=== PATIENT | male | born 1940 | race Caucasian/White ===

== ENCOUNTER 2017-08-03 11:50 | Inpatient (IN) ==
[2017-08-03] MEDS ORDERED: IPRATROPIUM/ALBUTEROL 3 ML AMPUL.NEB NEB ONE (12:05)
--- NOTE | 2017-08-03 12:07 | Emergency Department Note ---
SOB HPI - General Chief Complaint: Shortness of Breath/Dyspnea Stated Complaint: Short of breath, elevated HR. Time Seen by Provider: 08/03/17 12:01 Source: patient Mode of arrival: ambulatory Limitations: no limitations - History of Present Illness This patient has been fighting pneumonia for couple of weeks and has had 2 courses of antibiotics. He also has COPD and continues to be short of breath and coughing some. He is over at the allergy clinic and they found his heart rate to be 150. However in the emergency room it is only 108. - Related Data Home Medications Medication Instructions Recorded Confirmed Albuterol Sulfate [Proair Hfa] 8.5 gm IH PRN PRN 07/26/17 07/26/17 Dutasteride [Avodart] 0.5 mg PO HS 07/26/17 07/26/17 Fluticasone Furoate [Arnuity 1 puff IH DAILY 07/26/17 07/26/17 Ellipta] Fluticasone Furoate [Arnuity 1 puff IH DAILY 07/26/17 07/26/17 Ellipta] Metoprolol Succinate [Toprol Xl] 50 mg PO DAILY 07/26/17 07/26/17 Omeprazole [PriLOSEC] 20 mg PO DAILY 07/26/17 07/26/17 Simvastatin [Zocor] 40 mg PO HS 07/26/17 07/26/17 Terazosin [Hytrin] 5 mg PO DAILY 07/26/17 07/26/17 Tiotropium Br/Olodaterol HCl 2.5 gm IH DAILY 07/26/17 07/26/17 [Stiolto Respimat Inhal [place]] Previous Rx's Medication Instructions Recorded Cefuroxime [Ceftin] 500 mg PO Q12 #20 tab 07/26/17 predniSONE [Deltasone] 20 mg PO DAILY #6 tab 07/26/17 Allergies Allergy/AdvReac Type Severity Reaction Status Date / Time Penicillins Allergy Unknown Unknown Verified 08/03/17 11:51 Review of Systems All systems ED: reviewed and negative except as stated. Past Medical History - Past Medical History Medical history: Reports: asthma, COPD, other (No PUD). Denies: CVA, DM, hypertension, myocardial infarction, TIA - Social History smoking status: Former smoker Alcohol use: Reports: None Physical Exam Limitations: no limitations General appearance: alert Head: atraumatic Eye: Present: normal appearance ENT: normal exam Neck: Present: normal inspection Chest: Present: normal inspection Respiratory: Present: normal lung sounds bilaterally Cardiovascular: Present: regular rate, normal rhythm, normal heart sounds Abdominal: Present: soft. Absent: distention, tenderness Neurological: Present: alert Psychiatric: Present: normal affect, normal mood Skin: Present: warm, dry, intact Course Vital Signs Temperature 97.8 F 08/03/17 11:51 Pulse Rate 165 H 08/03/17 11:51 Respiratory Rate 22 08/03/17 11:51 Blood Pressure 131/78 08/03/17 11:51 Pulse Oximetry (%) 95 08/03/17 11:51 Temperature 97.8 F 08/03/17 11:51 Pulse Rate 81 08/03/17 13:08 Respiratory Rate 25 H 08/03/17 13:08 Blood Pressure 126/66 08/03/17 13:08 Pulse Oximetry (%) 94 08/03/17 13:08 Shortness of Breath/Dyspnea - [facility] Narrative Medical decision making narrative: This patient's chest x-ray is worsening. He appears to be failing outpatient treatment for his pneumonia and will be admitted. - Lab Data Lab results reviewed: Yes I reviewed the patient's lab results. Result diagrams: 08/03/17 12:25 08/03/17 12:25 Lab Results 08/03/17 08/03/17 08/03/17 Range/Units 12:25 12:25 12:25 WBC 10.4 (4.5-11.0) K/mcL RBC 4.53 (4.50-5.90) M/mcL Hgb 13.6 (13.5-16.5) g/dL Hct 40.6 L (41.0-55.0) % MCV 89.7 (80.0-100.0) fL MCH 30.0 (26.0-34.0) pg MCHC 33.5 (31.0-36.0) g/dL RDW 14.1 (11.5-14.5) % Plt Count 202 (140-440) K/mcL MPV 7.9 (7.4-10.4) fL Gran % 74.3 (38.0-78.0) % Lymph % (Auto) 12.5 L (15.5-49.0) % [place] % (Auto) 9.6 (1.0-12.0) % Eos % (Auto) 3.5 (0.0-7.0) % Baso % (Auto) 0.1 (0.0-2.0) % Gran # 7.7 (1.8-8.0) K/mcL Lymph # (Auto) 1.3 L (1.5-4.8) K/mcL [place] # (Auto) 1.0 H (0.1-0.9) K/mcL Eos # (Auto) 0.4 (0.0-0.7) K/mcL Baso # (Auto) 0 (0.0-0.3) K/mcL VBG Lactic Acid 1.7 (0.5-2.2) mmol/L Sodium 136 (133-145) mmol/L Potassium 4.7 (3.3-5.1) mmol/L Chloride 98 (96-108) mmol/L Carbon Dioxide 25 (22-30) mmol/L Anion Gap 13.0 (8-16) BUN 17 (8-23) mg/dl Creatinine 0.9 (0.7-1.2) mg/dl GFR Calculation 83 Glucose 96 (70-105) mg/dL Calcium 9.3 (8.6-10.4) mg/dl Total Bilirubin 0.5 (0.0-1.0) mg/dL AST 13 (0-37) U/l ALT 25 (0-40) U/l Alkaline Phosphatase 68 (39-117) U/L Troponin T (0-0.03) ng/ml Total Protein 7.0 (5.9-8.4) gm/dL Albumin 3.4 (3.2-5.2) gm/dL Globulin 3.6 (2.2-3.7) gm/dL Albumin/Globulin Ratio 0.9 L (1.0-2.3) 08/03/17 Range/Units 12:25 WBC (4.5-11.0) K/mcL RBC (4.50-5.90) M/mcL Hgb (13.5-16.5) g/dL Hct (41.0-55.0) % MCV (80.0-100.0) fL MCH (26.0-34.0) pg MCHC (31.0-36.0) g/dL RDW (11.5-14.5) % Plt Count (140-440) K/mcL MPV (7.4-10.4) fL Gran % (38.0-78.0) % Lymph % (Auto) (15.5-49.0) % [place] % (Auto) (1.0-12.0) % Eos % (Auto) (0.0-7.0) % Baso % (Auto) (0.0-2.0) % Gran # (1.8-8.0) K/mcL Lymph # (Auto) (1.5-4.8) K/mcL [place] # (Auto) (0.1-0.9) K/mcL Eos # (Auto) (0.0-0.7) K/mcL Baso # (Auto) (0.0-0.3) K/mcL VBG Lactic Acid (0.5-2.2) mmol/L Sodium (133-145) mmol/L Potassium (3.3-5.1) mmol/L Chloride (96-108) mmol/L Carbon Dioxide (22-30) mmol/L Anion Gap (8-16) BUN (8-23) mg/dl Creatinine (0.7-1.2) mg/dl GFR Calculation Glucose (70-105) mg/dL Calcium (8.6-10.4) mg/dl Total Bilirubin (0.0-1.0) mg/dL AST (0-37) U/l ALT (0-40) U/l Alkaline Phosphatase (39-117) U/L Troponin T < 0.01 (0-0.03) ng/ml Total Protein (5.9-8.4) gm/dL Albumin (3.2-5.2) gm/dL Globulin (2.2-3.7) gm/dL Albumin/Globulin Ratio (1.0-2.3) - Radiology Data Radiology results reviewed: Yes I reviewed the patient's radiology results. Disposition Pt seen by ENGINE LATHE OPERATOR/PA only: No Clinical Impression: Community acquired pneumonia Disposition: Xfer As Inpt ([facility]) Condition: Good Referrals: Des Waterman DO [Primary Care Provider] - Time of Disposition: 14:06
--- NOTE | 2017-08-03 13:00 | XRay Report ---
CLINICAL INFORMATION: Shortness of breath COMPARISON: 07/26/2017 FINDINGS: Heart size, mediastinum and pulmonary vessels are normal. Large alveolar infiltrate in the anterior segment of the left upper lobe and lingula has worsened. Left pleural effusion has increased and now moderate in size. Underlying COPD noted IMPRESSION: Large infiltrate in the anterior segment left upper lobe and lingula - worsening Moderate left pleural effusion also worsening Underlying COPD Interpreted and Authenticated by: Blue Chavez 08/03/17
[2017-08-03 13:04] LABS: Basophils # (Auto) 0 K/mcL (0.0-0.3); Basophils % (Auto) 0.1 % (0.0-2.0); Eosinophils # (Auto) 0.4 K/mcL (0.0-0.7); Eosinophils % (Auto) 3.5 % (0.0-7.0); Granulocytes % (Auto) 74.3 % (38.0-78.0); Lymphocytes # (Auto) 1.3 K/mcL (1.5-4.8); Lymphocytes % (Auto) 12.5 % (15.5-49.0); Mean Cell Volume 89.7 fL (80.0-100.0); Mean Corpuscular HGB Conc 33.5 g/dL (31.0-36.0); Monocytes % (Auto) 9.6 % (1.0-12.0); Platelet Count 202 K/mcL (140-440); RBC 4.53 M/mcL (4.50-5.90); Red Cell Distribution Width 14.1 % (11.5-14.5)
[2017-08-03 13:30] LABS: ALT/SGPT 25 U/l (0-40); Albumin 3.4 gm/dL (3.2-5.2); Albumin/Globulin Ratio 0.9 (1.0-2.3); Alkaline Phosphatase 68 U/L (39-117); Blood Urea Nitrogen 17 mg/dl (8-23)
[2017-08-03] MEDS ORDERED: LEVOFLOXACIN 750 MG/150 ML BAG IV ONE (13:45)
--- NOTE | 2017-08-03 15:56 | Internal Med History&Physical ---
Medical - H&P: HPI Patient information: Note initiated : 08/03/17 at 3:54 pm Service Date, if different from initiated Date: [] Patient: Sukumar Burt 76 y/o M admitted on for SOB, Elevated HR. Chief Complaint: progressive cough, dyspnea, chest pain, failed outpatient antibiotics for pneumonia History of present illness: Patient is a 76-year-old male with a history of advanced COPD, hypercholesterolemia, BPH, recent tachycardia who presents to the ED with progressive pulmonary symptoms. Approximately 10 days ago, the patient started developing pulmonary symptoms coughing with sputum production, occasionally bloody. He presented to the ED here on her poor A6, was diagnosed with lingular pneumonia, treated with Ceftin and a 5 day course of prednisone. Since that time he slept better and felt good for the first 2 days, then has progressively declined. He continues to have cough. He continues to have significant pleuritic chest pain, worse with inspiration and with cough. It's on the left side of the chest over the lingular region. It's moderate to severe in intensity. It hurts for him to lay on that side. He follows up in Dr. Hayes's office today, where Ceftin was stopped and Levaquin was prescribed as well as another taper prednisone. He was also tachycardic, was recommended he present to the emergency department. He presents to the ED, where initially his pulse is 124 with bigeminy on EKG. He is continuing to cough, producing yellowish sputum which is occasionally bloody , though sometimes it's almost all blood. He's felt chilled, though he feels chilly often. He's had no fever. He's had no night sweats. No history of TB exposure. No recent travel. He's had no weight loss. Sputum is yellowish tinged. Repeat radiograph in the ED shows progressive left lingular infiltrate and consolidation. He is being admitted for further treatment of pneumonia, failed outpatient therapy. Other than above, patient denies any headache, vision changes, sore throat, orthopnea, lower extremity edema, nausea, vomiting, diarrhea, abdominal pain, dysuria, focal neurologic symptoms. All systems: reviewed and no additional remarkable complaints except as stated Medical - H&P: PMH Medical history: COPD Hypercholesterolemia BPH Gastroesophageal reflux Urticaria Tachycardia, recently started on metoprolol History of spontaneous pneumothoraces 5, most recently in the 1980s. Surgical history: History of double hernia repair History of right sided chest tube in the remote past Pertinent family history: Patient's 3 sisters had breast cancer and have . A paternal grandmother of pneumonia in her late 30s in the year 1929. 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 He lives with his . He stopped smoking for 5 years ago, smoked 1 to1-1/2 packs per day prior to that. He does not drink alcohol. Medical - H&P: Meds Home Medications Medication Instructions Recorded Confirmed Type Albuterol Sulfate [Proair Hfa] 8.5 gm IH PRN PRN 07/26/17 07/26/17 History Cefuroxime [Ceftin] 500 mg PO Q12 #20 tab 07/26/17 Rx Dutasteride [Avodart] 0.5 mg PO HS 07/26/17 07/26/17 History Fluticasone Furoate [Arnuity 1 puff IH DAILY 07/26/17 07/26/17 History Ellipta] Fluticasone Furoate [Arnuity 1 puff IH DAILY 07/26/17 07/26/17 History Ellipta] Metoprolol Succinate [Toprol Xl] 50 mg PO DAILY 07/26/17 07/26/17 History Omeprazole [PriLOSEC] 20 mg PO DAILY 07/26/17 07/26/17 History Simvastatin [Zocor] 40 mg PO HS 07/26/17 07/26/17 History Terazosin [Hytrin] 5 mg PO DAILY 07/26/17 07/26/17 History Tiotropium Br/Olodaterol HCl 2.5 gm IH DAILY 07/26/17 07/26/17 History [Stiolto Respimat Inhal [place]] predniSONE [Deltasone] 20 mg PO DAILY #6 tab 07/26/17 Rx Allergies Allergy/AdvReac Type Severity Reaction Status Date / Time Penicillins Allergy Unknown Unknown Verified 08/03/17 11:51 Medical - H&P: Exam - Constitutional Vitals: Temp Pulse Resp BP Pulse Ox 97.8 F 81 25 H 126/66 94 08/03/17 11:51 08/03/17 13:08 08/03/17 13:08 08/03/17 13:08 08/03/17 13:08 Exam: General: Alert, in no acute distress HEENT: Normocephalic. Pupils are equally round and reactive to light. Sclera are anicteric. No conjunctival injection. Oropharynx is with moist mucous membranes, no lip or gum lesions. Tongue is midline. Neck: Supple, no meningismus. No thyromegaly. Chest: Diminished breath sounds at the left base, augmented vesicular breath sounds left mid posterior, few rales left lateral and anterior lung gomez. No wheezing, no rhonchi, inspiratory and expiratory phases approximately equal, aeration is moderately good. Respirations are mildly labored. Cardiovascular: Regular rate and rhythm without murmur gallop or rub. Carotid pulses are 2+ without bruit. There is no lower extremity edema. JVP is normal. Abdomen: Soft, nontender without guarding or rebound. Active bowel sounds. No hepatosplenomegaly. Lymphatic: No supraclavicular lymphadenopathy, no cervical lymphadenopathy. Skin: Warm, dry. No rash. Skin turgor is decreased Musculoskeletal: No joint erythema or tenderness. Normal range of motion in the upper and lower extremities. Strength 5/5 in upper and lower extremities. Digits without cyanosis or clubbing. Neuro: Alert, oriented X3. Cranial nerves II through XII grossly intact. Sensation intact to light touch. Psychiatric: Affect and orientation are normal. Good insight. Medical - H&P: Reslt - Labs CBC & Chem 7: 08/03/17 12:25 08/03/17 12:25 Labs: Short CBC 08/03/17 Range/Units 12:25 WBC 10.4 (4.5-11.0) K/mcL Hgb 13.6 (13.5-16.5) g/dL Hct 40.6 L (41.0-55.0) % Plt Count 202 (140-440) K/mcL BMP 08/03/17 12:25 Sodium 136 Potassium 4.7 Chloride 98 Carbon Dioxide 25 BUN 17 Creatinine 0.9 Glucose 96 Calcium 9.3 Cardiac Enzymes 08/03/17 Range/Units 12:25 Troponin T < 0.01 (0-0.03) ng/ml Liver Function 08/03/17 Range/Units 12:25 Total Bilirubin 0.5 (0.0-1.0) mg/dL AST 13 (0-37) U/l ALT 25 (0-40) U/l Alkaline Phosphatase 68 (39-117) U/L Albumin 3.4 (3.2-5.2) gm/dL - EKG Data -: EKG Reviewed by Myself (SR with gissel, rate 124) - Imaging and Cardiology Chest x-ray Status: image reviewed by me Additional comments: FINDINGS: Heart size, mediastinum and pulmonary vessels are normal. Large alveolar infiltrate in the anterior segment of the left upper lobe and lingula has worsened. Left pleural effusion has increased and now moderate in size. Underlying COPD noted IMPRESSION: -Large infiltrate in the anterior segment left upper lobe and lingula - worsening -Moderate left pleural effusion also worsening -Underlying COPD Medical - H&P: A/P (1) Left upper lobe pneumonia Current visit: Yes Status: Acute (2) COPD (chronic obstructive pulmonary disease) Current visit: Yes Status: Chronic - Narrative A/P Narrative: 76-year-old male with advanced COPD presents with ongoing pulmonary symptoms, cough, occasional hemoptysis, pleuritic chest pain and worsening infiltrate on chest x-ray. Pneumonia. Failed outpatient therapy. Worsening infiltrate and worsening of effusion. Oxygenating adequately on room air currently. No evidence of sepsis. Concern for parapneumonic versus empyema as source of effusion. Also concern for possible postobstructive pneumonia with failure to respond to Ceftin. Patient does have a history of smoking. Last CT scan was 4 or 5 years ago by his estimation. Pneumonia severity index 86, though given progressive infiltrate and effusion, the patient will require inpatient hospitalization and treatment. Plan: 1. Inpatient hospitalization, despite greater than 2 midnights 2. Levofloxacin 750 mg IV daily 3. Incentive spirometry 4. Analgesia for pleuritic pain 5. Check sputum culture, blood cultures obtained, follow-up 6. No active COPD exacerbation, continue with his bronchodilators and inhaled steroids 7. Check CT of chest to evaluate for obstructive lesion, evaluate extent of effusion and for evidence of loculation 8. Check strep pneumo urine antigen COPD. No current exacerbation. Plan: Continue home regimen, we'll not provide pulse of extra steroids at this time. Tachycardia. Patient with bigeminy on EKG. Has had intermittent tachycardia for the last several weeks. This may be related to his underlying pneumonia and pleural process. Metoprolol have been started due to tachycardia. Plan: Telemetry monitoring. Gastroesophageal reflux disease. Stable. Plan: Continue home meds Urticaria. Patient takes evening antihistamine to prevent hives. Plan: Continue BPH with lower urinary tract symptoms. Stable on current regimen. Plan: Continue home regimen. Prophylaxis: Lovenox, he is on a PPI as well. CODE STATUS: The patient would want cardiopulmonary resuscitation. He would not want to be intubated. He would accept BiPAP if needed.
[2017-08-03] MEDS ORDERED: ACETAMINOPHEN 325 MG TABLET PO PRN (16:51)
[2017-08-03] MEDS ORDERED: IPRATROPIUM/ALBUTEROL 3 ML AMPUL.NEB NEB PRN (16:51)
[2017-08-03] MEDS ORDERED: HYDROcodone/APAP 5/325MG TABLET PO PRN (16:51)
[2017-08-03] MEDS ORDERED: ONDANSETRON 4 MG/2 ML VIAL IV PRN (16:51)
[2017-08-03] MEDS: 0.9 % SODIUM CHLORIDE 1,000 ML IV SCH (16:59)
[2017-08-03 17:25] LABS: C-Reactive Protein 7.3 mg/dl (0.0-0.8)
[2017-08-03] MEDS ORDERED: IOPAMIDOL 100 ML BOTTLE IV ONE (17:29)
--- NOTE | 2017-08-03 18:03 | Cat Scan Report ---
CLINICAL INFORMATION: Left upper lobe pneumonia and hemoptysis COMPARISON: None. TECHNIQUE: 80 cc of Isovue-300 were injected intravenously, and 25 seconds later, 0.625 mm helical slices were obtained from the lung apices through the bases. Following reconstruction, 2.5 mm sagittal, coronal and axial reformations were processed and reviewed at lung, mediastinal and bone windows. 7 mm axial MIPS were also obtained to optimize pulmonary nodule detection. The exam was performed using radiation dose optimization techniques including, but not limited to, automated exposure control, adjustment of the mA and/or kV according to patient size and use of iterative reconstruction technique. FINDINGS: There is a 5 x 2 cm low-attenuation mass with irregular borders in the left hilum which encases and narrows the left upper lobe and lingular bronchi. It is suspicious for primary lung carcinoma. No definite adenopathy within the mediastinum or remaining hilar structures. The heart is normal in size configuration. There is a 17 mm thrombus within the left atrial appendage. The pulmonary arteries are normal in contour and caliber without definite emboli. The thoracic aorta is normal in contour and caliber. Pulmonary parenchymal windows show moderate centrilobular emphysema changes featuring elevated lung volumes chronic bronchitis and multiple bullae predominantly upper lobes. There is a large alveolar infiltrate throughout the anterior segment of the left upper lobe and the lingula. A small interstitial infiltrate is seen in the posterior left lower lobe. Moderate left pleural effusion is appreciated. There is scattered scarring in the right lung with pleural parenchymal fibrosis in both apical regions. Bones soft tissues the chest wall are unremarkable. Images should the superior abdomen show no abnormality. IMPRESSION: 1. 5 cm irregular left hilar mass encasing and narrowing the left upper lobe and lingular bronchi and pulmonary arteries. It is suspicious for primary lung carcinoma. No definite evidence of metastatic adenopathy or distant metastases. If tissue diagnosis is desired, suggest bronchoscopy 2. Large alveolar infiltrate in the lingula and anterior segment left upper lobe. Small infiltrate posterior left lower lobe. Moderate left pleural effusion 3. 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 This would be at risk for systemic embolization 4. Moderate centrilobular emphysema changes Interpreted and Authenticated by: Blue Chavez 08/03/17
[2017-08-03] MEDS ORDERED: traZODone HCL 50 MG TABLET PO PRN (18:59)
[2017-08-03] MEDS ORDERED: HYDROcodone/APAP 10/325MG TABLET PO ONE (19:29)
[2017-08-03] MEDS: OMEPRAZOLE 20 MG CAPSULE PO SCH (21:24)
[2017-08-03] MEDS: SIMVASTATIN 40 MG TABLET PO SCH (21:24)
[2017-08-03] MEDS: METOPROLOL SUCCINATE 25 MG TAB.XL.24H PO SCH (21:24)
[2017-08-03] MEDS: TERAZOSIN 5 MG CAPSULE PO SCH (21:24)
[2017-08-03] MEDS: DUTASTERIDE 0.5 MG CAPSULE PO SCH (21:37)
[2017-08-03] MEDS: HYDROcodone/APAP 10/325MG TABLET PO PRN (23:30)
[2017-08-04] MEDS: HYDROcodone/APAP 10/325MG TABLET PO PRN (03:44)
[2017-08-04 05:31] LABS: Basophils # (Auto) 0 K/mcL (0.0-0.3); Basophils % (Auto) 0.1 % (0.0-2.0); Eosinophils # (Auto) 0.4 K/mcL (0.0-0.7); Granulocytes % (Auto) 68.2 % (38.0-78.0); Lymphocytes # (Auto) 1.6 K/mcL (1.5-4.8); Lymphocytes % (Auto) 16.9 % (15.5-49.0); Mean Cell Volume 89.5 fL (80.0-100.0); Mean Corpuscular HGB Conc 33.9 g/dL (31.0-36.0); Mean Corpuscular Hemoglobin 30.4 pg (26.0-34.0); Monocytes % (Auto) 10.8 % (1.0-12.0); Platelet Count 176 K/mcL (140-440); RBC 3.94 M/mcL (4.50-5.90); Red Cell Distribution Width 13.9 % (11.5-14.5)
[2017-08-04] MEDS: 0.9 % SODIUM CHLORIDE 1,000 ML IV SCH ×2 (06:42→21:46)
[2017-08-04] MEDS ORDERED: OLODATEROL HCL INH SCH (09:00)
[2017-08-04] MEDS ORDERED: Fluticasone Furoate [Arnuity Ellipta] 1 PUFF INH SCH (09:00)
[2017-08-04] MEDS ORDERED: ENOXAPARIN 40 MG/0.4 ML SYRINGE SQ SCH (09:00)
[2017-08-04] MEDS ORDERED: TIOTROPIUM BR INH SCH (09:00)
[2017-08-04] MEDS ORDERED: FLUTICASONE FUROATE IH SCH ×2 (09:00→21:00)
[2017-08-04] MEDS: LEVOFLOXACIN 750 MG/150 ML BAG IV SCH (09:21)
--- NOTE | 2017-08-04 10:26 | Consultation ---
DATE OF CONSULTATION: 08/04/2017 REQUESTING PHYSICIAN: Maria Guadalupe Whitlock MD HISTORY OF PRESENT ILLNESS: The patient is a 76-year-old male who indicates approximately 10 to 14 days of deteriorating respiratory status. He was seen in the Emergency Room initially and given a course of Ceftin for what was considered a lingular pneumonia. He subsequently did not consider himself significantly improved and visited with Dr. Hayes. He was switched from Ceftin to Levaquin. His symptoms continued to be difficult and he had developed some scant blood in his cough material. He represented to the Emergency Room where he was thought to have a poorly responding pneumonia and admitted for further care. On admission, the hospitalist obtained a CT scan of the chest. This demonstrated a significant mass lesion occluding part of the left upper lobe and lingular bronchi. Consultation was placed to Pulmonary in that regard. The patient indicates that he has smoked all of his life, having quit approximately 4 years previously. He denies claude or industrial occupations or exposures. He denies known exposure to tuberculosis and thinks he had negative skin test in childhood. No unusual animals or other exposures in the home, only a cat. He does consider himself to be an allergic person and indicates he gets hives when he travels and sleeps in foreign bed sheets. He denies fevers or chills. Apart from his current difficulties, he reports a history of gastroesophageal reflux disease as well as spontaneous pneumothoraces in the 80s. These required closed tube thoracostomy on one occasion and a prolonged air drainage at that time. 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 REVIEW OF SYSTEMS: Negative except as recorded above on detailed questioning. No history of heart disease, dependent edema. He is having some pleuritic chest pain on the left in the area of his pneumonitis at this time but no other reported abnormalities. PHYSICAL EXAMINATION: GENERAL: The patient is a pleasant 76-year-old male who winces occasionally with a deep breath but in no other acute distress. HEAD: Atraumatic and normocephalic. EYES: PERRL, EOMI. Sclerae and conjunctivae clear. NECK: Supple, possible soft right carotid bruit. No lymphadenopathy. LUNGS: Decreased breath sounds with rhonchi and sipping wheeze in the left hemithorax. HEART: Regular S1, S2. No gallop, rub, jugular venous distention or edema. ABDOMEN: Soft. Bowel sounds present. Liver and spleen are not palpable. BONES, JOINTS AND EXTREMITIES: Intact. NEUROLOGIC: Nonfocal. IMAGING STUDIES: Review of the CT scan of the chest does show an abnormality in the hilum of the left lung with airway impingement, as well as an infiltrate in the pulmonary parenchyma. IMPRESSION: A 76-year-old male with a probable lung carcinoma. At this time, continuing antibiotic therapy for his pneumonia is appropriate while he would gain some strength and decrease some inflammation. Also noted was the atrial thrombus. I do recommend anticoagulation with adjusted dose heparin so that a window could be looked for early next week to discontinue anticoagulation briefly to allow bronchoscopy to try and elucidate cause of the radiographic change. I will discuss and follow along. Thank you for the opportunity to participate in the care of this pleasant gentleman. KJP:los Job ID: [id number] Doc ID: [id number] Gerald Wade MD
--- NOTE | 2017-08-04 10:53 | Internal Med Progress Note ---
Medical - PN: Subj Patient information: Note initiated : 08/04/17 at 10:50 am Service Date, if different from initiated Date: [] Patient: Sukumar Burt 76 y/o M admitted on 08/03/17 for pneumonia. Chief Complaint: f/u PNA, lung mass Interval history: Aug 03 Patient is a 76-year-old male with a history of advanced COPD, hypercholesterolemia, BPH, recent tachycardia who presents to the ED with progressive pulmonary symptoms. Approximately 10 days ago, the patient started developing pulmonary symptoms coughing with sputum production, occasionally bloody. He presented to the ED here on her poor A6, was diagnosed with lingular pneumonia, treated with Ceftin and a 5 day course of prednisone. Since that time he slept better and felt good for the first 2 days, then has progressively declined. He continues to have cough. He continues to have significant pleuritic chest pain, worse with inspiration and with cough. It's on the left side of the chest over the lingular region. It's moderate to severe in intensity. It hurts for him to lay on that side. He follows up in Dr. Hayes's office today, where Ceftin was stopped and Levaquin was prescribed as well as another taper prednisone. He was also tachycardic, was recommended he present to the emergency department. He presents to the ED, where initially his pulse is 124 with bigeminy on EKG. He is continuing to cough, producing yellowish sputum which is occasionally bloody , though sometimes it's almost all blood. He's felt chilled, though he feels chilly often. He's had no fever. He's had no night sweats. No history of TB exposure. No recent travel. He's had no weight loss. Sputum is yellowish tinged. Repeat radiograph in the ED shows progressive left lingular infiltrate and consolidation. He is being admitted for further treatment of pneumonia, failed outpatient therapy. Aug 04 Feeling a bit stronger this morning. Has been seen by Dr. Wade. CT yesterday shows left hilar mass with partial bronchial obstruction, likely explaining his progressive pneumonia. 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 Plan is to treat with further antibiotics and strengthening prior to attempting bronchoscopy, likely Tuesday morning. Still with some cough, not much hemoptysis. Chest pain seems to be slowly improving. - Constitutional Vitals: Vital Signs Temp Pulse Resp BP Pulse Ox 97.9 F 61 16 112/66 95 08/04/17 07:17 08/04/17 07:17 08/04/17 07:17 08/04/17 07:17 08/04/17 07:17 Period Temp Pulse Resp BP Sys/Giang Pulse Ox Last 24 Hr 97.7 F-98.8 F 28-165 15-27 106-137/54-86 91-98 Intake and Output 08/03/17 08/04/17 08/04/17 21:59 05:59 13:59 Intake Total 510 / 510 300 / 300 1550 / 1550 Output Total 300 / 300 400 / 400 150 / 150 Balance 210 / 210 -100 / -100 1400 / 1400 Weight 160 lb Intake & Output: Intake & Output 08/03/17 08/04/17 08/04/17 21:59 05:59 13:59 Intake Total 510 / 510 300 / 300 1550 / 1550 Output Total 300 / 300 400 / 400 150 / 150 Balance 210 / 210 -100 / -100 1400 / 1400 Weight 160 lb Intake: IV 150 / 150 1000 / 1000 Sodium Chloride 0.9% 1,000 ml @ 1000 / 1000 75 mls/hr IV .[id number] [facility] Rx#: [id number] Oral 360 / 360 300 / 300 550 / 550 Output: Void Amount 300 / 300 400 / 400 150 / 150 Other: Meal Dinner Percent of Meal Consumed 75% Feeding Ability Independent Stool Color Brown Stool Consistency Soft # Voids 1 1 Exam: General: Significant bed in no acute distress Chest: Coarse vesicular breath sounds left mid and upper lung, otherwise diminished throughout, no wheezes Cardiovascular: Regular, no edema Abdomen: Soft, nontender Neuro: Alert, oriented 3, moves all extremities, nonfocal Medical - PN: Obj Da - Labs CBC & Chem 7: 08/04/17 04:26 08/03/17 12:25 Labs: Abnormal Lab Results 08/04/17 08/03/17 08/03/17 04:26 12:25 12:25 RBC 3.94 L Hgb 11.9 L Hct 35.2 L Lymph % (Auto) Lymph # (Auto) [place] # (Auto) 1.0 H ESR 28 H C-Reactive Protein 7.3 H Albumin/Globulin Ratio 08/03/17 08/03/17 12:25 12:25 RBC Hgb Hct 40.6 L Lymph % (Auto) 12.5 L Lymph # (Auto) 1.3 L [place] # (Auto) 1.0 H ESR C-Reactive Protein Albumin/Globulin Ratio 0.9 L Meds: Medications Acetaminophen (Tylenol) 650 mg PO Q6HP PRN PRN Reason: PAIN/FEVER > 101 Hydrocodone Bitart/Acetaminophen ([place] 10/325mg) 1 tab PO Q4HP PRN PRN Reason: Pain Last Admin: 08/04/17 03:44 Dose: 1 tab Albuterol Sulfate (Ventolin) 2.5 mg NEB Q2HP PRN PRN Reason: Shortness Of Breath Albuterol Sulfate (Ventolin) 2.5 mg NEB Q24H [facility] Dutasteride (Avodart) 0.5 mg PO [facility] Last Admin: 08/03/17 21:37 Dose: 0.5 mg Levofloxacin (Levaquin) 750 mg in 150 mls @ 100 mls/hr IV DAILY [facility] Last Admin: 08/04/17 09:21 Dose: 100 mls/hr Sodium Chloride (Sodium Chloride 0.9%) 1,000 mls @ 75 mls/hr IV .[id number] [facility] Last Admin: 08/04/17 06:42 Dose: 75 mls/hr Heparin Sodium/Dextrose 25,000 (unit/ Premix) 500 mls @ 20.32 mls/hr IV .Q24H [facility]; 14 UNIT/KG/HR PRN Reason: Protocol Lorazepam (Ativan) 0.5 mg PO Q4HP PRN PRN Reason: ANXIETY/SEDATION Metoprolol Succinate (Toprol Xl) 50 mg PO [facility] Last Admin: 08/03/17 21:24 Dose: 50 mg Omeprazole (Prilosec) 20 mg PO [facility] Last Admin: 08/03/17 21:24 Dose: 20 mg Ondansetron HCl (Zofran) 4 mg IV Q4HP PRN PRN Reason: Nausea And Vomiting Fluticasone Furoate [Arnuity Ellipta] 1 Puff 1 dose INH [facility] Tiotropium Br/Olodaterol Hcl [ Stiolto Respimat In 1 dose INH [facility] Simvastatin (Zocor) 40 mg PO [facility] Last Admin: 08/03/17 21:24 Dose: 40 mg Terazosin HCl (Hytrin) 5 mg PO HS [facility] Last Admin: 08/03/17 21:24 Dose: 5 mg Trazodone HCl (Desyrel) 50 mg PO HSP PRN PRN Reason: Insomnia - Imaging and cardiology CT scan - chest Status: image reviewed by me Additional comments: IMPRESSION: 1. 5 cm irregular left hilar mass encasing and narrowing the left upper lobe and lingular bronchi and pulmonary arteries. It is suspicious for primary lung carcinoma. No definite evidence of metastatic adenopathy or distant metastases. If tissue diagnosis is desired, suggest bronchoscopy 2. Large alveolar infiltrate in the lingula and anterior segment left upper lobe. Small infiltrate posterior left lower lobe. Moderate left pleural effusion 3. 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 This would be at risk for systemic embolization 4. Moderate centrilobular emphysema changes Medical - PN: A/P - Time Spent With Patient Total time spent is greater than 50% in coordination of care (as documented) at patient's floor/unit and/or counseling patient: Greater than 35 minutes (1) Left upper lobe pneumonia Status: Acute Current Visit: Yes (2) COPD (chronic obstructive pulmonary disease) Status: Chronic Current Visit: Yes (3) Lung neoplasm Status: Acute Current Visit: Yes - Narrative A/P Narrative: 76-year-old male with advanced COPD presents with ongoing pulmonary symptoms, cough, occasional hemoptysis, pleuritic chest pain and worsening infiltrate on chest x-ray. Pneumonia. Postobstructive pneumonia, now diagnosed with CT scan with left bronchial mass. Feeling a bit better overnight. Has been seen in consultation by pulmonary. Plan: Continue with levofloxacin, check spirometry, anticipate bronchoscopy Tuesday morning after several days of antibiotics and strengthening. Pain control as needed for pleuritic chest pain. Left lung tumor. Concern for lung cancer. Plan: Bronchoscopy as outlined above for tissue diagnosis. 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 Patient likely hypercoagulable secondary to resumptive neoplasia. Will require anticoagulation , will need close monitoring during initiation given his hemoptysis to monitor for evidence of massive hemoptysis. Plan: Initiate IV unfractionated heparin, monitor for worsening hemoptysis, we' ll be able to stop and reverse quickly in that regard. COPD. No current exacerbation. Plan: Continue home regimen, we'll not provide pulse of extra steroids at this time. Tachycardia. Likely related to his pulmonary process. Continues with bigeminy Plan: Telemetry monitoring. Gastroesophageal reflux disease. Stable. Plan: Continue home meds Urticaria. Patient takes evening antihistamine to prevent hives. Plan: Continue BPH with lower urinary tract symptoms. Stable on current regimen. Plan: Continue home regimen. Medical - PN: Qual - VTE Deep Vein Thrombosis/Pulmonary Embolism Present on Admission: No
[2017-08-04] MEDS ORDERED: HEPARIN 5,000 UNIT/ML VIAL SQ ONE (12:15)
[2017-08-04] MEDS ORDERED: HEPARIN 5,000 UNIT/ML VIAL IV ONE (12:30)
[2017-08-04] MEDS: HEPARIN/D5W 25,000 UNIT in PREMIX 1 BAG IV SCH (12:33)
[2017-08-04] MEDS ORDERED: ALBUTEROL SULFATE 2.5 MG/3 ML NEBULIZER NEB SCH (20:00)
[2017-08-04] MEDS: FLUTICASONE FUROATE 200 MCG INH SCH (20:49)
[2017-08-04] MEDS: METOPROLOL SUCCINATE 25 MG TAB.XL.24H PO SCH (20:49)
[2017-08-04] MEDS: FLUTICASONE FUROATE 100 MCG INH SCH (20:49)
[2017-08-04] MEDS: OLODATEROL HCL INH SCH (20:49)
[2017-08-04] MEDS: TIOTROPIUM BR INH SCH (20:49)
[2017-08-04] MEDS: SIMVASTATIN 40 MG TABLET PO SCH (20:49)
[2017-08-04] MEDS: DUTASTERIDE 0.5 MG CAPSULE PO SCH (20:50)
[2017-08-04] MEDS: OMEPRAZOLE 20 MG CAPSULE PO SCH (20:50)
[2017-08-04] MEDS: TERAZOSIN 5 MG CAPSULE PO SCH (20:50)
[2017-08-04 21:39] LABS: Blood Urea Nitrogen 12 mg/dl (8-23)
[2017-08-05 04:41] LABS: Basophils # (Auto) 0 K/mcL (0.0-0.3); Basophils % (Auto) 0.5 % (0.0-2.0); Eosinophils # (Auto) 0.4 K/mcL (0.0-0.7); Eosinophils % (Auto) 4.6 % (0.0-7.0); Granulocytes % (Auto) 72.9 % (38.0-78.0); Lymphocytes # (Auto) 1.3 K/mcL (1.5-4.8); Lymphocytes % (Auto) 13.7 % (15.5-49.0); Mean Corpuscular HGB Conc 34.3 g/dL (31.0-36.0); Mean Corpuscular Hemoglobin 30.6 pg (26.0-34.0); Monocytes # (Auto) 0.8 K/mcL (0.1-0.9); Monocytes % (Auto) 8.3 % (1.0-12.0); Platelet Count 159 K/mcL (140-440); RBC 3.66 M/mcL (4.50-5.90); Red Cell Distribution Width 14.1 % (11.5-14.5)
[2017-08-05 04:59] LABS: Blood Urea Nitrogen 13 mg/dl (8-23)
[2017-08-05] MEDS: LEVOFLOXACIN 750 MG/150 ML BAG IV SCH (09:07)
[2017-08-05] MEDS: 0.9 % SODIUM CHLORIDE 1,000 ML IV SCH (13:58)
[2017-08-05] MEDS: HEPARIN/D5W 25,000 UNIT in PREMIX 1 BAG IV SCH (14:15)
[2017-08-05] MEDS ORDERED: PHYTONADIONE 10 MG/ML AMPUL SQ ONE (16:40)
[2017-08-05] MEDS ORDERED: ALBUTEROL SULFATE 1 PUFF INHALER INH PRN (19:41)
--- NOTE | 2017-08-05 19:45 | Internal Med Progress Note ---
Medical - PN: Subj Patient information: Note initiated : 08/05/17 at 7:43 pm Service Date, if different from initiated Date: [] Patient: Sukumar Burt 76 y/o M admitted on 08/03/17 for BRONCHOSCOPY/LUNG BIOPSY. Chief Complaint: f/u PNA, lung tumor Interval history: Aug 03 Patient is a 76-year-old male with a history of advanced COPD, hypercholesterolemia, BPH, recent tachycardia who presents to the ED with progressive pulmonary symptoms. Approximately 10 days ago, the patient started developing pulmonary symptoms coughing with sputum production, occasionally bloody. He presented to the ED here on her poor A6, was diagnosed with lingular pneumonia, treated with Ceftin and a 5 day course of prednisone. Since that time he slept better and felt good for the first 2 days, then has progressively declined. He continues to have cough. He continues to have significant pleuritic chest pain, worse with inspiration and with cough. It's on the left side of the chest over the lingular region. It's moderate to severe in intensity. It hurts for him to lay on that side. He follows up in Dr. Hayes's office today, where Ceftin was stopped and Levaquin was prescribed as well as another taper prednisone. He was also tachycardic, was recommended he present to the emergency department. He presents to the ED, where initially his pulse is 124 with bigeminy on EKG. He is continuing to cough, producing yellowish sputum which is occasionally bloody , though sometimes it's almost all blood. He's felt chilled, though he feels chilly often. He's had no fever. He's had no night sweats. No history of TB exposure. No recent travel. He's had no weight loss. Sputum is yellowish tinged. Repeat radiograph in the ED shows progressive left lingular infiltrate and consolidation. He is being admitted for further treatment of pneumonia, failed outpatient therapy. Jul 15 Feeling a bit stronger this morning. Has been seen by Dr. Wade. CT yesterday shows left hilar mass with partial bronchial obstruction, likely explaining his progressive pneumonia. 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 Plan is to treat with further antibiotics and strengthening prior to attempting bronchoscopy, likely Tuesday morning. Still with some cough, not much hemoptysis. Chest pain seems to be slowly improving. Feb 16 Stable on heparin infusion. Still occasional mild hemoptysis, but is not worsened on anticoagulation. Overnight last night was having runs of SVT/ atrial tachycardia up to the 140s, with subsequent pauses resumption of sinus rhythm and bigeminy. Seemed to improve later in the night, after his evening dose of metoprolol. Patient was asymptomatic during these. - Constitutional Vitals: Vital Signs Temp Pulse Resp BP Pulse Ox 99.6 F H 60 20 137/66 91 08/05/17 16:00 08/05/17 07:40 08/05/17 16:00 08/05/17 16:00 08/05/17 16:00 Period Temp Pulse Resp BP Sys/Giang Pulse Ox Last 24 Hr 98.4 F-99.6 F 60-105 14-20 94-139/55-66 91-97 Intake and Output 08/05/17 08/05/17 08/05/17 05:59 13:59 21:59 Intake Total 192 / 192 1800 / 1800 535 / 535 Output Total 950 / 950 325 / 325 825 / 825 Balance -758 / -758 1475 / 1475 -290 / -290 Intake & Output: Intake & Output 08/05/17 08/05/17 08/05/17 05:59 13:59 21:59 Intake Total 192 / 192 1800 / 1800 535 / 535 Output Total 950 / 950 325 / 325 825 / 825 Balance -758 / -758 1475 / 1475 -290 / -290 Intake: IV 192 / 192 1000 / 1000 295 / 295 Sodium Chloride 0.9% 1,000 ml @ 1000 / 1000 75 mls/hr IV .[id number] [facility] Rx#: [id number] Heparin/D5w 25,000 Unit In 192 / 192 0 / 0 145 / 145 Premix 1 Bag @ 14 UNIT/KG/HR 20 .32 mls/hr IV .Q24H [facility] Rx#: [id number] Oral 800 / 800 240 / 240 Output: Void Amount 950 / 950 325 / 325 825 / 825 Other: Meal Breakfast Lunch Percent of Meal Consumed 100% 75% # Voids 1 1 Exam: General: Sitting in bed, no distress Chest: Bronchovesicular breath sounds left mid lung field. Scattered expiratory wheezes. Respirations are mildly labored. Cardiovascular currently regular rate and rhythm. No peripheral edema. Abdomen: Soft, nontender Neuro: Alert, oriented, nonfocal Medical - PN: Obj Da - Labs CBC & Chem 7: 08/05/17 03:56 08/05/17 03:56 Labs: Abnormal Lab Results 08/05/17 08/05/17 08/05/17 15:55 03:56 03:56 RBC 3.66 L Hgb 11.2 L Hct 32.6 L Lymph % (Auto) 13.7 L Lymph # (Auto) 1.3 L [place] # (Auto) ESR PT INR APTT 87 H 60 H Sodium Chloride Glucose Calcium C-Reactive Protein Albumin/Globulin Ratio 08/05/17 08/04/17 08/04/17 03:56 20:40 20:40 RBC Hgb Hct Lymph % (Auto) Lymph # (Auto) [place] # (Auto) ESR PT INR APTT 107 H Sodium 127 L Chloride 93 L Glucose 127 H 167 H Calcium 8.2 L 8.1 L C-Reactive Protein Albumin/Globulin Ratio 08/04/17 08/04/17 08/03/17 10:59 04:26 12:25 RBC 3.94 L Hgb 11.9 L Hct 35.2 L Lymph % (Auto) Lymph # (Auto) [place] # (Auto) 1.0 H ESR PT 15.1 H INR 1.2 H APTT 40 H Sodium Chloride Glucose Calcium C-Reactive Protein 7.3 H Albumin/Globulin Ratio 08/03/17 08/03/17 08/03/17 12:25 12:25 12:25 RBC Hgb Hct 40.6 L Lymph % (Auto) 12.5 L Lymph # (Auto) 1.3 L [place] # (Auto) 1.0 H ESR 28 H PT INR APTT Sodium Chloride Glucose Calcium C-Reactive Protein Albumin/Globulin Ratio 0.9 L Microbiology 08/03/17 14:05 Blood Culture - Preliminary Blood 08/03/17 14:00 Blood Culture - Preliminary Blood 08/03/17 21:35 Gram Stain - Final Sputum - Expectorated Sputum Culture - Final No pathogens isolated Meds: Medications Acetaminophen (Tylenol) 650 mg PO Q6HP PRN PRN Reason: PAIN/FEVER > 101 Last Admin: 08/04/17 23:25 Dose: 650 mg Hydrocodone Bitart/Acetaminophen ([place] 10/325mg) 1 tab PO Q4HP PRN PRN Reason: Pain Last Admin: 08/04/17 03:44 Dose: 1 tab Albuterol Sulfate (Ventolin) 2.5 mg NEB Q2HP PRN PRN Reason: Shortness Of Breath Albuterol Sulfate (Ventolin) 1 puff INH Q4HP PRN PRN Reason: Shortness Of Breath Dutasteride (Avodart) 0.5 mg PO [facility] Last Admin: 08/04/17 20:50 Dose: 0.5 mg Levofloxacin (Levaquin) 750 mg in 150 mls @ 100 mls/hr IV DAILY [facility] Last Infusion: 08/05/17 14:21 Dose: Infused Sodium Chloride (Sodium Chloride 0.9%) 1,000 mls @ 75 mls/hr IV .[id number] [facility] Last Admin: 08/05/17 13:58 Dose: 75 mls/hr Heparin Sodium/Dextrose 25,000 (unit/ Premix) 500 mls @ 20.32 mls/hr IV .Q24H [facility]; 14 UNIT/KG/HR PRN Reason: Protocol Last Admin: 08/05/17 14:15 Dose: 14 unit/kg/hr, 20.32 mls/hr Lorazepam (Ativan) 0.5 mg PO Q4HP PRN PRN Reason: ANXIETY/SEDATION Metoprolol Succinate (Toprol Xl) 50 mg PO [facility] Last Admin: 08/04/17 20:49 Dose: 50 mg Omeprazole (Prilosec) 20 mg PO [facility] Last Admin: 08/04/17 20:50 Dose: 20 mg Ondansetron HCl (Zofran) 4 mg IV Q4HP PRN PRN Reason: Nausea And Vomiting Fluticasone Furoate [Arnuity Ellipta] 100 Mcg 1 dose INH [facility] Last Admin: 08/04/17 20:49 Dose: 1 dose Tiotropium Br/Olodaterol Hcl [ Stiolto Respimat In 1 dose INH [facility] Last Admin: 08/04/17 20:49 Dose: 1 dose Fluticasone Furoate [Arnuity Ellipta] 200 Mcg 1 dose INH [facility] Last Admin: 08/04/17 20:49 Dose: 1 dose Simvastatin (Zocor) 40 mg PO [facility] Last Admin: 08/04/17 20:49 Dose: 40 mg Terazosin HCl (Hytrin) 5 mg PO [facility] Last Admin: 08/04/17 20:50 Dose: 5 mg Trazodone HCl (Desyrel) 50 mg PO HSP PRN PRN Reason: Insomnia Medical - PN: A/P (1) Left upper lobe pneumonia Status: Acute Current Visit: Yes (2) COPD (chronic obstructive pulmonary disease) Status: Chronic Current Visit: Yes (3) Lung neoplasm Status: Acute Current Visit: Yes - Narrative A/P Narrative: 76-year-old male with advanced COPD presents with ongoing pulmonary symptoms, cough, occasional hemoptysis, pleuritic chest pain and worsening infiltrate on chest x-ray. Pneumonia. Postobstructive pneumonia, diagnosed with CT scan with left bronchial mass. Continues to slowly feel a bit better. Has been seen in consultation by pulmonary. Plan: Continue with levofloxacin, anticipate bronchoscopy Tuesday morning after several days of antibiotics and strengthening. Pain control as needed for pleuritic chest pain. Left lung tumor. Concern for lung cancer. Plan: Bronchoscopy as outlined above for tissue diagnosis. 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 Patient likely hypercoagulable secondary to presumptive neoplasia. Tolerating heparin infusion without increase in hemoptysis. Plan: Continue IV unfractionated heparin, monitor. COPD. No current exacerbation. Plan: Continue home regimen, we'll not provide pulse of extra steroids at this time. Tachycardia. Likely related to his pulmonary process. Continues with bigeminy Plan: Continue metoprolol, continue tele. Gastroesophageal reflux disease. Stable. Plan: Continue home meds Urticaria. Patient takes evening antihistamine to prevent hives. Plan: Continue BPH with lower urinary tract symptoms. Stable on current regimen. Plan: Continue home regimen. Medical - PN: Qual - VTE Deep Vein Thrombosis/Pulmonary Embolism Present on Admission: No
[2017-08-05] MEDS: ALBUTEROL SULFATE 2.5 MG/3 ML NEBULIZER NEB PRN (20:03)
[2017-08-05] MEDS: DUTASTERIDE 0.5 MG CAPSULE PO SCH (20:41)
[2017-08-05] MEDS: FLUTICASONE FUROATE 200 MCG INH SCH (20:41)
[2017-08-05] MEDS: OMEPRAZOLE 20 MG CAPSULE PO SCH (20:41)
[2017-08-05] MEDS: SIMVASTATIN 40 MG TABLET PO SCH (20:41)
[2017-08-05] MEDS: TIOTROPIUM BR INH SCH (20:41)
[2017-08-05] MEDS: FLUTICASONE FUROATE 100 MCG INH SCH (20:41)
[2017-08-05] MEDS: OLODATEROL HCL INH SCH (20:41)
[2017-08-05] MEDS: TERAZOSIN 5 MG CAPSULE PO SCH (20:42)
[2017-08-05] MEDS: METOPROLOL SUCCINATE 25 MG TAB.XL.24H PO SCH (20:42)
[2017-08-05] MEDS ORDERED: HEPARIN 5,000 UNIT/ML VIAL ONE (23:50)
[2017-08-06] MEDS: 0.9 % SODIUM CHLORIDE 1,000 ML IV SCH ×3 (03:04→20:28)
[2017-08-06 05:55] LABS: Basophils # (Auto) 0 K/mcL (0.0-0.3); Basophils % (Auto) 0.2 % (0.0-2.0); Eosinophils # (Auto) 0.4 K/mcL (0.0-0.7); Eosinophils % (Auto) 3.3 % (0.0-7.0); Granulocytes % (Auto) 78.2 % (38.0-78.0); Lymphocytes # (Auto) 1.2 K/mcL (1.5-4.8); Lymphocytes % (Auto) 11.6 % (15.5-49.0); Mean Cell Volume 89.4 fL (80.0-100.0); Mean Corpuscular HGB Conc 34.2 g/dL (31.0-36.0); Mean Corpuscular Hemoglobin 30.6 pg (26.0-34.0); Monocytes # (Auto) 0.7 K/mcL (0.1-0.9); Monocytes % (Auto) 6.7 % (1.0-12.0); Platelet Count 157 K/mcL (140-440); RBC 3.54 M/mcL (4.50-5.90); Red Cell Distribution Width 13.9 % (11.5-14.5)
[2017-08-06 06:10] LABS: Blood Urea Nitrogen 10 mg/dl (8-23)
[2017-08-06] MEDS: LEVOFLOXACIN 750 MG/150 ML BAG IV SCH (09:17)
--- NOTE | 2017-08-06 13:33 | Internal Med Progress Note ---
Medical - PN: Subj Patient information: Note initiated : 08/06/17 at 1:30 pm Service Date, if different from initiated Date: [] Patient: Sukumar Burt 76 y/o M admitted on 08/03/17 for BRONCHOSCOPY/LUNG BIOPSY. Chief Complaint: [] Interval history: Aug 03 Patient is a 76-year-old male with a history of advanced COPD, hypercholesterolemia, BPH, recent tachycardia who presents to the ED with progressive pulmonary symptoms. Approximately 10 days ago, the patient started developing pulmonary symptoms coughing with sputum production, occasionally bloody. He presented to the ED here on her poor A6, was diagnosed with lingular pneumonia, treated with Ceftin and a 5 day course of prednisone. Since that time he slept better and felt good for the first 2 days, then has progressively declined. He continues to have cough. He continues to have significant pleuritic chest pain, worse with inspiration and with cough. It's on the left side of the chest over the lingular region. It's moderate to severe in intensity. It hurts for him to lay on that side. He follows up in Dr. Hayes's office today, where Ceftin was stopped and Levaquin was prescribed as well as another taper prednisone. He was also tachycardic, was recommended he present to the emergency department. He presents to the ED, where initially his pulse is 124 with bigeminy on EKG. He is continuing to cough, producing yellowish sputum which is occasionally bloody , though sometimes it's almost all blood. He's felt chilled, though he feels chilly often. He's had no fever. He's had no night sweats. No history of TB exposure. No recent travel. He's had no weight loss. Sputum is yellowish tinged. Repeat radiograph in the ED shows progressive left lingular infiltrate and consolidation. He is being admitted for further treatment of pneumonia, failed outpatient therapy. Feb 15 Feeling a bit stronger this morning. Has been seen by Dr. Wade. CT yesterday shows left hilar mass with partial bronchial obstruction, likely explaining his progressive pneumonia. 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 Plan is to treat with further antibiotics and strengthening prior to attempting bronchoscopy, likely Tuesday morning. Still with some cough, not much hemoptysis. Chest pain seems to be slowly improving. Feb 16 Stable on heparin infusion. Still occasional mild hemoptysis, but is not worsened on anticoagulation. Overnight last night was having runs of SVT/ atrial tachycardia up to the 140s, with subsequent pauses resumption of sinus rhythm and bigeminy. Seemed to improve later in the night, after his evening dose of metoprolol. Patient was asymptomatic during these. August 06 Remained stable. Occasional streaky hemoptysis. Chest pain is improved significantly. Appetite is pretty good. Still gets quite winded with exertion to the bathroom and back. Remains on a heparin infusion. Decreased amount of atrial arrhythmia. Occasional pauses remain. - Constitutional Vitals: Vital Signs Temp Pulse Resp BP Pulse Ox 99.2 F H 70 20 139/70 95 08/06/17 12:00 08/06/17 04:00 08/06/17 12:00 08/06/17 12:00 08/06/17 12:00 Period Temp Pulse Resp BP Sys/Giang Pulse Ox Last 24 Hr 99.0 F-99.6 F 64-78 16-20 134-139/63-71 90-95 Intake and Output 08/05/17 08/06/17 08/06/17 21:59 05:59 13:59 Intake Total 535 / 535 1181 / 1181 800 / 800 Output Total 825 / 825 400 / 400 200 / 200 Balance -290 / -290 781 / 781 600 / 600 Weight 160 lb Intake & Output: Intake & Output 08/05/17 08/06/17 08/06/17 21:59 05:59 13:59 Intake Total 535 / 535 1181 / 1181 800 / 800 Output Total 825 / 825 400 / 400 200 / 200 Balance -290 / -290 781 / 781 600 / 600 Weight 160 lb Intake: IV 295 / 295 1181 / 1181 Sodium Chloride 0.9% 1,000 ml @ 983 / 983 75 mls/hr IV .[id number] [facility] Rx#: [id number] Heparin/D5w 25,000 Unit In 145 / 145 198 / 198 Premix 1 Bag @ 14 UNIT/KG/HR 20 .32 mls/hr IV .Q24H [facility] Rx#: [id number] Oral 240 / 240 800 / 800 Output: Void Amount 825 / 825 400 / 400 200 / 200 Other: Meal Lunch Breakfast Percent of Meal Consumed 75% 75% # Voids 1 1 Exam: General: Sitting in chair, comfortable Chest: Bronchovesicular sounds in left mid chest, diminished throughout, no prolonged expiratory phase, no wheezing. Respirations are unlabored. Cardiovascular: regular, no gallop, no rub. No peripheral edema. Abdomen: Soft, nontender Neuro: Alert, oriented 3, generally weak but nonfocal. Medical - PN: Obj Da - Labs CBC & Chem 7: 08/06/17 04:08 08/06/17 04:08 Labs: Abnormal Lab Results 08/06/17 08/06/17 08/06/17 08:04 04:08 04:08 RBC 3.54 L Hgb 10.8 L Hct 31.7 L Gran % 78.2 H Lymph % (Auto) 11.6 L Gran # 8.4 H Lymph # (Auto) 1.2 L Reeves # (Auto) ESR PT INR APTT 87 H Sodium Chloride Carbon Dioxide 21 L Glucose 113 H Calcium 7.9 L C-Reactive Protein Albumin/Globulin Ratio 08/05/17 08/05/17 08/05/17 22:00 15:55 03:56 RBC Hgb Hct Gran % Lymph % (Auto) Gran # Lymph # (Auto) Reeves # (Auto) ESR PT INR APTT 55 H 87 H 60 H Sodium Chloride Carbon Dioxide Glucose Calcium C-Reactive Protein Albumin/Globulin Ratio 08/05/17 08/05/17 08/04/17 03:56 03:56 20:40 RBC 3.66 L Hgb 11.2 L Hct 32.6 L Gran % Lymph % (Auto) 13.7 L Gran # Lymph # (Auto) 1.3 L Reeves # (Auto) ESR PT INR APTT Sodium 127 L Chloride 93 L Carbon Dioxide Glucose 127 H 167 H Calcium 8.2 L 8.1 L C-Reactive Protein Albumin/Globulin Ratio 08/04/17 08/04/17 08/04/17 20:40 10:59 04:26 RBC 3.94 L Hgb 11.9 L Hct 35.2 L Gran % Lymph % (Auto) Gran # Lymph # (Auto) Reeves # (Auto) 1.0 H ESR PT 15.1 H INR 1.2 H APTT 107 H 40 H Sodium Chloride Carbon Dioxide Glucose Calcium C-Reactive Protein Albumin/Globulin Ratio 08/03/17 08/03/17 08/03/17 12:25 12:25 12:25 RBC Hgb Hct Gran % Lymph % (Auto) Gran # Lymph # (Auto) Reeves # (Auto) ESR 28 H PT INR APTT Sodium Chloride Carbon Dioxide Glucose Calcium C-Reactive Protein 7.3 H Albumin/Globulin Ratio 0.9 L Meds: Medications Acetaminophen (Tylenol) 650 mg PO Q6HP PRN PRN Reason: PAIN/FEVER > 101 Last Admin: 08/04/17 23:25 Dose: 650 mg Hydrocodone Bitart/Acetaminophen ([place] 10/325mg) 1 tab PO Q4HP PRN PRN Reason: Pain Last Admin: 08/04/17 03:44 Dose: 1 tab Albuterol Sulfate (Ventolin) 2.5 mg NEB Q2HP PRN PRN Reason: Shortness Of Breath Last Admin: 08/05/17 20:03 Dose: 2.5 mg Albuterol Sulfate (Ventolin) 1 puff INH Q4HP PRN PRN Reason: Shortness Of Breath Dutasteride (Avodart) 0.5 mg PO [facility] Last Admin: 08/05/17 20:41 Dose: 0.5 mg Levofloxacin (Levaquin) 750 mg in 150 mls @ 100 mls/hr IV DAILY [facility] Last Admin: 08/06/17 09:17 Dose: 100 mls/hr Sodium Chloride (Sodium Chloride 0.9%) 1,000 mls @ 75 mls/hr IV .[id number] [facility] Last Admin: 08/06/17 03:04 Dose: 75 mls/hr Heparin Sodium/Dextrose 25,000 (unit/ Premix) 500 mls @ 20.32 mls/hr IV .Q24H [facility]; 14 UNIT/KG/HR PRN Reason: Protocol Last Titration: 08/06/17 00:00 Dose: 16 unit/kg/hr, 23.22 mls/hr Lorazepam (Ativan) 0.5 mg PO Q4HP PRN PRN Reason: ANXIETY/SEDATION Metoprolol Succinate (Toprol Xl) 50 mg PO [facility] Last Admin: 08/05/17 20:42 Dose: 50 mg Omeprazole (Prilosec) 20 mg PO [facility] Last Admin: 08/05/17 20:41 Dose: 20 mg Ondansetron HCl (Zofran) 4 mg IV Q4HP PRN PRN Reason: Nausea And Vomiting Fluticasone Furoate [Arnuity Ellipta] 100 Mcg 1 dose INH [facility] Last Admin: 08/05/17 20:41 Dose: 1 dose Tiotropium Br/Olodaterol Hcl [ Stiolto Respimat In 1 dose INH [facility] Last Admin: 08/05/17 20:41 Dose: 1 dose Fluticasone Furoate [Arnuity Ellipta] 200 Mcg 1 dose INH [facility] Last Admin: 08/05/17 20:41 Dose: 1 dose Simvastatin (Zocor) 40 mg PO [facility] Last Admin: 08/05/17 20:41 Dose: 40 mg Terazosin HCl (Hytrin) 5 mg PO [facility] Last Admin: 08/05/17 20:42 Dose: 5 mg Trazodone HCl (Desyrel) 50 mg PO [facility] PRN PRN Reason: Insomnia Medical - PN: A/P - Time Spent With Patient Total time spent is greater than 50% in coordination of care (as documented) at patient's floor/unit and/or counseling patient: 25 - 35 minutes (1) Left upper lobe pneumonia Status: Acute Current Visit: Yes (2) COPD (chronic obstructive pulmonary disease) Status: Chronic Current Visit: Yes (3) Lung neoplasm Status: Acute Current Visit: Yes - Narrative A/P Narrative: 76-year-old male with advanced COPD presents with ongoing pulmonary symptoms, cough, occasional hemoptysis, pleuritic chest pain and worsening infiltrate on chest x-ray. Pneumonia. Postobstructive pneumonia, diagnosed with CT scan with left bronchial mass. Continues to slowly feel better. Has been seen in consultation by pulmonary. Plan: Continue with levofloxacin, anticipate bronchoscopy Tuesday morning after several days of antibiotics and strengthening. Pain control as needed for pleuritic chest pain. Left lung tumor. Concern for lung cancer. Plan: Bronchoscopy as outlined above for tissue diagnosis. 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 Patient likely hypercoagulable secondary to presumptive neoplasia. Tolerating heparin infusion without increase in hemoptysis. Plan: Continue IV unfractionated heparin, monitor. COPD. No current exacerbation. Plan: Continue home regimen, we'll not provide pulse of extra steroids at this time. Tachycardia. Likely related to his pulmonary process. Continues with bigeminy Plan: Continue metoprolol, continue tele. Gastroesophageal reflux disease. Stable. Plan: Continue home meds Urticaria. Patient takes evening antihistamine to prevent hives. Plan: Continue BPH with lower urinary tract symptoms. Stable on current regimen. Plan: Continue home regimen. Medical - PN: Qual - VTE Deep Vein Thrombosis/Pulmonary Embolism Present on Admission: No
[2017-08-06] MEDS: HEPARIN/D5W 25,000 UNIT in PREMIX 1 BAG IV SCH (14:03)
[2017-08-06] MEDS: ALBUTEROL SULFATE 2.5 MG/3 ML NEBULIZER NEB PRN (19:36)
[2017-08-06] MEDS: METOPROLOL SUCCINATE 25 MG TAB.XL.24H PO SCH (20:24)
[2017-08-06] MEDS: OMEPRAZOLE 20 MG CAPSULE PO SCH (20:25)
[2017-08-06] MEDS: DUTASTERIDE 0.5 MG CAPSULE PO SCH (20:25)
[2017-08-06] MEDS: FLUTICASONE FUROATE 100 MCG INH SCH (20:25)
[2017-08-06] MEDS: OLODATEROL HCL INH SCH (20:25)
[2017-08-06] MEDS: TIOTROPIUM BR INH SCH (20:25)
[2017-08-06] MEDS: LORazepam 0.5 MG TABLET PO PRN (20:25)
[2017-08-06] MEDS: FLUTICASONE FUROATE 200 MCG INH SCH (20:25)
[2017-08-06] MEDS: SIMVASTATIN 40 MG TABLET PO SCH (20:28)
[2017-08-06] MEDS: TERAZOSIN 5 MG CAPSULE PO SCH (20:28)
[2017-08-07 04:52] LABS: Basophils # (Auto) 0 K/mcL (0.0-0.3); Basophils % (Auto) 0.4 % (0.0-2.0); Eosinophils # (Auto) 0.4 K/mcL (0.0-0.7); Eosinophils % (Auto) 3.9 % (0.0-7.0); Granulocytes % (Auto) 74.8 % (38.0-78.0); Lymphocytes # (Auto) 1.4 K/mcL (1.5-4.8); Lymphocytes % (Auto) 13.5 % (15.5-49.0); Mean Cell Volume 89.3 fL (80.0-100.0); Mean Corpuscular HGB Conc 34.2 g/dL (31.0-36.0); Mean Corpuscular Hemoglobin 30.6 pg (26.0-34.0); Monocytes # (Auto) 0.7 K/mcL (0.1-0.9); Monocytes % (Auto) 7.4 % (1.0-12.0); Platelet Count 160 K/mcL (140-440); RBC 3.42 M/mcL (4.50-5.90)
[2017-08-07 05:15] LABS: Blood Urea Nitrogen 7 mg/dl (8-23)
[2017-08-07] MEDS: LEVOFLOXACIN 750 MG/150 ML BAG IV SCH (09:05)
--- NOTE | 2017-08-07 09:13 | Internal Med Progress Note ---
Medical - PN: Subj Patient information: Note initiated : 08/07/17 at 9:11 am Service Date, if different from initiated Date: [] Patient: Sukumar Burt 76 y/o M admitted on 08/03/17 for BRONCHOSCOPY/LUNG BIOPSY. Chief Complaint: follow up pneumonia, lung mass Interval history: Aug 03 Patient is a 76-year-old male with a history of advanced COPD, hypercholesterolemia, BPH, recent tachycardia who presents to the ED with progressive pulmonary symptoms. Approximately 10 days ago, the patient started developing pulmonary symptoms coughing with sputum production, occasionally bloody. He presented to the ED here on her poor A6, was diagnosed with lingular pneumonia, treated with Ceftin and a 5 day course of prednisone. Since that time he slept better and felt good for the first 2 days, then has progressively declined. He continues to have cough. He continues to have significant pleuritic chest pain, worse with inspiration and with cough. It's on the left side of the chest over the lingular region. It's moderate to severe in intensity. It hurts for him to lay on that side. He follows up in Dr. Hayes's office today, where Ceftin was stopped and Levaquin was prescribed as well as another taper prednisone. He was also tachycardic, was recommended he present to the emergency department. He presents to the ED, where initially his pulse is 124 with bigeminy on EKG. He is continuing to cough, producing yellowish sputum which is occasionally bloody , though sometimes it's almost all blood. He's felt chilled, though he feels chilly often. He's had no fever. He's had no night sweats. No history of TB exposure. No recent travel. He's had no weight loss. Sputum is yellowish tinged. Repeat radiograph in the ED shows progressive left lingular infiltrate and consolidation. He is being admitted for further treatment of pneumonia, failed outpatient therapy. b 15 Feeling a bit stronger this morning. Has been seen by Dr. Wade. CT yesterday shows left hilar mass with partial bronchial obstruction, likely explaining his progressive pneumonia. 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 Plan is to treat with further antibiotics and strengthening prior to attempting bronchoscopy, likely Tuesday morning. Still with some cough, not much hemoptysis. Chest pain seems to be slowly improving. Feb 16 Stable on heparin infusion. Still occasional mild hemoptysis, but is not worsened on anticoagulation. Overnight last night was having runs of SVT/ atrial tachycardia up to the 140s, with subsequent pauses resumption of sinus rhythm and bigeminy. Seemed to improve later in the night, after his evening dose of metoprolol. Patient was asymptomatic during these. August 06 Remained stable. Occasional streaky hemoptysis. Chest pain is improved significantly. Appetite is pretty good. Still gets quite winded with exertion to the bathroom and back. Remains on a heparin infusion. Decreased amount of atrial arrhythmia. Occasional pauses remain. August 07 Slept very well after trazodone last night, feels rested. He had a bowel movement yesterday. Occasional dark bloody sputum. Otherwise tolerating heparin infusion. Occasional of sided chest pain, though significantly improved from admission. Appetite improved. Still quite winded with exertion. Tele stable, no runs of tachyarrhythmia. - Constitutional Vitals: Vital Signs Temp Pulse Resp BP Pulse Ox 99.3 F H 73 22 140/70 92 08/07/17 07:02 08/07/17 07:02 08/07/17 07:02 08/07/17 07:02 08/07/17 07:28 Period Temp Pulse Resp BP Sys/Giang Pulse Ox Last 24 Hr 98.5 F-99.3 F 60-89 16-22 126-140/58-83 90-95 Intake and Output 08/06/17 08/07/17 08/07/17 21:59 05:59 13:59 Intake Total 870 / 870 Output Total 525 / 525 350 / 350 200 / 200 Balance 345 / 345 -350 / -350 -200 / -200 Weight 160 lb 8 oz Intake & Output: Intake & Output 08/06/17 08/07/17 08/07/17 21:59 05:59 13:59 Intake Total 870 / 870 Output Total 525 / 525 350 / 350 200 / 200 Balance 345 / 345 -350 / -350 -200 / -200 Weight 160 lb 8 oz Intake: IV 150 / 150 Oral 720 / 720 Output: Void Amount 525 / 525 350 / 350 200 / 200 Other: Meal Dinner Percent of Meal Consumed 75% Feeding Ability Independent # Voids 1 1 # Bowel Movements 1 Exam: General: Sitting in bed, no distress Chest: Improved aeration left mid lung field, equal and reactive. Phases, no wheezes, no accessory muscle use Cardiovascular: Regular, no edema Abdomen: Soft, nontender Neuro:, Oriented, nonfocal Medical - PN: Obj Da - Labs CBC & Chem 7: 08/07/17 04:09 08/07/17 04:09 Labs: Abnormal Lab Results 08/07/17 08/07/17 08/07/17 04:09 04:09 04:09 RBC 3.42 L Hgb 10.5 L Hct 30.6 L Gran % Lymph % (Auto) 13.5 L Gran # Lymph # (Auto) 1.4 L PT INR APTT 93 H Sodium Chloride Carbon Dioxide BUN 7 L Glucose 126 H Calcium 7.5 L 08/06/17 08/06/17 08/06/17 16:00 08:04 04:08 RBC 3.54 L Hgb 10.8 L Hct 31.7 L Gran % 78.2 H Lymph % (Auto) 11.6 L Gran # 8.4 H Lymph # (Auto) 1.2 L PT INR APTT 81 H 87 H Sodium Chloride Carbon Dioxide BUN Glucose Calcium 08/06/17 08/05/17 08/05/17 04:08 22:00 15:55 RBC Hgb Hct Gran % Lymph % (Auto) Gran # Lymph # (Auto) PT INR APTT 55 H 87 H Sodium Chloride Carbon Dioxide 21 L BUN Glucose 113 H Calcium 7.9 L 08/05/17 08/05/17 08/05/17 03:56 03:56 03:56 RBC 3.66 L Hgb 11.2 L Hct 32.6 L Gran % Lymph % (Auto) 13.7 L Gran # Lymph # (Auto) 1.3 L PT INR APTT 60 H Sodium Chloride Carbon Dioxide BUN Glucose 127 H Calcium 8.2 L 08/04/17 08/04/17 08/04/17 20:40 20:40 10:59 RBC Hgb Hct Gran % Lymph % (Auto) Gran # Lymph # (Auto) PT 15.1 H INR 1.2 H APTT 107 H 40 H Sodium 127 L Chloride 93 L Carbon Dioxide BUN Glucose 167 H Calcium 8.1 L Meds: Medications Acetaminophen (Tylenol) 650 mg PO Q6HP PRN PRN Reason: PAIN/FEVER > 101 Last Admin: 08/04/17 23:25 Dose: 650 mg Hydrocodone Bitart/Acetaminophen ([place] 10/325mg) 1 tab PO Q4HP PRN PRN Reason: Pain Last Admin: 08/04/17 03:44 Dose: 1 tab Albuterol Sulfate (Ventolin) 2.5 mg NEB Q2HP PRN PRN Reason: Shortness Of Breath Last Admin: 08/06/17 19:36 Dose: 2.5 mg Albuterol Sulfate (Ventolin) 1 puff INH Q4HP PRN PRN Reason: Shortness Of Breath Dutasteride (Avodart) 0.5 mg PO [facility] Last Admin: 08/06/17 20:25 Dose: 0.5 mg Levofloxacin (Levaquin) 750 mg in 150 mls @ 100 mls/hr IV DAILY [facility] Last Admin: 08/07/17 09:05 Dose: 100 mls/hr Heparin Sodium/Dextrose 25,000 (unit/ Premix) 500 mls @ 20.32 mls/hr IV .Q24H [facility]; 14 UNIT/KG/HR PRN Reason: Protocol Last Admin: 08/06/17 14:03 Dose: 16 unit/kg/hr, 23.22 mls/hr Sodium Chloride (Sodium Chloride 0.9%) 1,000 mls @ 25 mls/hr IV .Q24H [facility] Last Admin: 08/06/17 20:28 Dose: 25 mls/hr Lorazepam (Ativan) 0.5 mg PO Q4HP PRN PRN Reason: ANXIETY/SEDATION Last Admin: 08/06/17 20:25 Dose: 0.5 mg Metoprolol Succinate (Toprol Xl) 50 mg PO [facility] Last Admin: 08/06/17 20:24 Dose: 50 mg Omeprazole (Prilosec) 20 mg PO [facility] Last Admin: 08/06/17 20:25 Dose: 20 mg Ondansetron HCl (Zofran) 4 mg IV Q4HP PRN PRN Reason: Nausea And Vomiting Fluticasone Furoate [Arnuity Ellipta] 100 Mcg 1 dose INH [facility] Last Admin: 08/06/17 20:25 Dose: 1 dose Tiotropium Br/Olodaterol Hcl [ Stiolto Respimat In 1 dose INH [facility] Last Admin: 08/06/17 20:25 Dose: 1 dose Fluticasone Furoate [Arnuity Ellipta] 200 Mcg 1 dose INH [facility] Last Admin: 08/06/17 20:25 Dose: 1 dose Simvastatin (Zocor) 40 mg PO [facility] Last Admin: 08/06/17 20:28 Dose: 40 mg Terazosin HCl (Hytrin) 5 mg PO [facility] Last Admin: 08/06/17 20:28 Dose: 5 mg Trazodone HCl (Desyrel) 50 mg PO [facility] PRN PRN Reason: Insomnia Medical - PN: A/P - Time Spent With Patient Total time spent is greater than 50% in coordination of care (as documented) at patient's floor/unit and/or counseling patient: 25 - 35 minutes (1) Left upper lobe pneumonia Status: Acute Current Visit: Yes (2) COPD (chronic obstructive pulmonary disease) Status: Chronic Current Visit: Yes (3) Lung neoplasm Status: Acute Current Visit: Yes - Narrative A/P Narrative: 76-year-old male with advanced COPD presents with ongoing pulmonary symptoms, cough, occasional hemoptysis, pleuritic chest pain and worsening infiltrate on chest x-ray. Pneumonia. Postobstructive pneumonia, diagnosed with CT scan with left bronchial mass. Continues to improve slowly with antibiotics. Has been seen in consultation by Dr. Wade for pulmonary. Plan: Continue with levofloxacin, anticipate bronchoscopy Tuesday morning after several days of antibiotics and strengthening. Pain control as needed for pleuritic chest pain. NPO after midnight, stop heparin infusion at midnight tonight (Sun). Left lung tumor. Concern for lung cancer. Plan: Bronchoscopy as outlined above for tissue diagnosis. 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 Patient likely hypercoagulable secondary to presumptive neoplasia. Tolerating heparin infusion without increase in hemoptysis. Plan: Continue IV unfractionated heparin, monitor; stop at midnight in anticipation of FOB. Long-term anticoagulation will need to be evaluated after tumor biopsy. COPD. No current exacerbation. Plan: Continue home regimen, we'll not provide pulse of extra steroids at this time. Tachycardia. Likely related to his pulmonary process. Continues with bigeminy , but no tachyarrhythmias Plan: Continue metoprolol, continue tele. Gastroesophageal reflux disease. Stable. Plan: Continue home meds Urticaria. Patient takes evening antihistamine to prevent hives. Plan: Continue BPH with lower urinary tract symptoms. Stable on current regimen. Plan: Continue home regimen. Medical - PN: Qual - VTE Deep Vein Thrombosis/Pulmonary Embolism Present on Admission: No
[2017-08-07] MEDS: HEPARIN/D5W 25,000 UNIT in PREMIX 1 BAG IV SCH (11:41)
[2017-08-07] MEDS: DUTASTERIDE 0.5 MG CAPSULE PO SCH (20:09)
[2017-08-07] MEDS: FLUTICASONE FUROATE 200 MCG INH SCH (20:09)
[2017-08-07] MEDS: LORazepam 0.5 MG TABLET PO PRN (20:09)
[2017-08-07] MEDS: METOPROLOL SUCCINATE 25 MG TAB.XL.24H PO SCH (20:09)
[2017-08-07] MEDS: FLUTICASONE FUROATE 100 MCG INH SCH (20:09)
[2017-08-07] MEDS: OLODATEROL HCL INH SCH (20:09)
[2017-08-07] MEDS: OMEPRAZOLE 20 MG CAPSULE PO SCH (20:09)
[2017-08-07] MEDS: TIOTROPIUM BR INH SCH (20:09)
[2017-08-07] MEDS: SIMVASTATIN 40 MG TABLET PO SCH (20:13)
[2017-08-07] MEDS: TERAZOSIN 5 MG CAPSULE PO SCH (20:13)
[2017-08-07] MEDS: 0.9 % SODIUM CHLORIDE 1,000 ML IV SCH (20:41)
[2017-08-08 04:48] LABS: Basophils # (Auto) 0 K/mcL (0.0-0.3); Basophils % (Auto) 0.3 % (0.0-2.0); Eosinophils # (Auto) 0.4 K/mcL (0.0-0.7); Eosinophils % (Auto) 3.9 % (0.0-7.0); Granulocytes % (Auto) 73.4 % (38.0-78.0); Lymphocytes # (Auto) 1.2 K/mcL (1.5-4.8); Lymphocytes % (Auto) 12.5 % (15.5-49.0); Mean Cell Volume 88.9 fL (80.0-100.0); Mean Corpuscular HGB Conc 34.2 g/dL (31.0-36.0); Mean Corpuscular Hemoglobin 30.4 pg (26.0-34.0); Monocytes # (Auto) 0.9 K/mcL (0.1-0.9); Monocytes % (Auto) 9.9 % (1.0-12.0); Platelet Count 171 K/mcL (140-440); RBC 3.44 M/mcL (4.50-5.90); Red Cell Distribution Width 14.3 % (11.5-14.5)
[2017-08-08 05:07] LABS: ALT/SGPT 26 U/l (0-40); Albumin 2.7 gm/dL (3.2-5.2); Albumin/Globulin Ratio 1.1 (1.0-2.3); Alkaline Phosphatase 61 U/L (39-117); Bilirubin,Direct < 0.2 mg/dL (0.0-0.3); Blood Urea Nitrogen 7 mg/dl (8-23); Gamma Glutamyl Transpeptidase 44 U/L (8-61)
[2017-08-08] MEDS ORDERED: MIDAZOLAM 2 MG/2 ML VIAL ONE (06:43)
[2017-08-08] MEDS ORDERED: 0.9 % SODIUM CHLORIDE 250 ML INTRATRACH PRN (06:44)
[2017-08-08] MEDS ORDERED: FLUMAZENIL 0.1 MG/ML ML IV PRN (06:44)
[2017-08-08] MEDS ORDERED: NALOXONE HCL 0.4 MG/ML VIAL IV PRN (06:44)
[2017-08-08] MEDS ORDERED: EPINEPHrine 1 MG/ML AMPUL INTRATRACH PRN (06:44)
[2017-08-08] MEDS ORDERED: LIDOCAINE VISCOUS 2% 1 ML SOLUTION NAS SCH (06:45)
[2017-08-08] MEDS ORDERED: LIDOCAINE 2% PF 5 ML VIAL NEB SCH (06:45)
[2017-08-08] MEDS ORDERED: ATROPINE SULFATE 0.4 MG/ML VIAL IM SCH (06:45)
[2017-08-08] MEDS ORDERED: MIDAZOLAM 2 MG/2 ML VIAL IV SCH (06:45)
[2017-08-08] MEDS ORDERED: DEXTROSE 5%-1/2NS 1,000 ML IV SCH (06:45)
[2017-08-08] MEDS ORDERED: LIDOCAINE 2% 20 ML VIAL INTRATRACH SCH ×2 (06:45→07:00)
--- NOTE | 2017-08-08 07:23 | Progress Note ---
DATE OF VISIT 08/08/2017 HISTORY OF PRESENT ILLNESS: The patient is examined in his room prior to the procedure this morning. His and another family member are at the bedside. He indicates a reasonable and comfortable night, although he is complaining of dry mouth since he has been n.p.o. He states his sputum production has decreased but breathing is reasonably comfortable. He is offered the opportunity to ask additional questions regarding the procedure, informed and operative consent having been obtained previously and signed with special consideration to bleeding, pneumothorax and nondiagnostic procedure. His PTT is returned to the normal range and his recent INR was 1.1. PHYSICAL EXAMINATION: GENERAL: The patient is a pleasant stated age male in no acute distress. HEAD: Atraumatic and normocephalic. NECK: Supple. LUNGS: Decreased breath sounds with some crackles in the left upper lobe anteriorly and posteriorly. The patient is able to be speaking complete sentences and is not using accessory muscles of respiration. HEART: Regular, S1, S2. No gallop, rub, jugular venous distention or edema. ABDOMEN: Soft. Bowel sounds are present. No apparent tenderness or mass. IMPRESSION: Patient with left hilar mass and obstructive pneumonitis. PLAN: Bronchoscopy to elucidate cause of change. We will proceed this morning. KJP:kh Job ID: [id number] Doc ID: [id number] Gerald Wade MD
[2017-08-08] MEDS ORDERED: POTASSIUM CHLORIDE 20 MEQ PACKET PO ONE (07:48)
[2017-08-08] MEDS: IPRATROPIUM/ALBUTEROL 3 ML AMPUL.NEB NEB SCH ×5 (09:20→23:00)
[2017-08-08] MEDS: ALBUTEROL SULFATE 2.5 MG/3 ML NEBULIZER NEB PRN (09:21)
[2017-08-08] MEDS: LEVOFLOXACIN 750 MG/150 ML BAG IV SCH (09:43)
--- NOTE | 2017-08-08 11:22 | Operative Note ---
DATE OF OPERATION: 08/08/2017 PREOPERATIVE DIAGNOSIS: Left lung mass, possible carcinoma. POSTOPERATIVE DIAGNOSIS: Left lung mass, possible carcinoma. Await results of specimens. PROCEDURE: Bronchoscopy with bronchial wash, bronchial brushing, endobronchial biopsy, and aspirate tumor mass. SURGEON: Gerald Wade M.D. INDICATIONS: The patient is a pleasant 76-year-old male who presented to the hospital with chest pain and probable postobstructive pneumonia with proximal left hilar tumor mass on CT scan of the chest. Consultation was placed to pulmonary who concurred in that observation, and this morning he was taken to bronchoscopy to elucidate the cause of the radiographic change. CONSENT: Informed and operative consent were obtained prior to the procedure with special consideration to bleeding, pneumothorax and nondiagnostic procedure. ANESTHESIA: The patient received 4 mg of morphine and 0.4 mg of atropine IM prior to the procedure. He received 2% lidocaine to the nares and 2% lidocaine to the oropharynx and through the scope to the airways for topical anesthesia. He received a total of 4.5 mg of Versed in 0.5 mg aliquots during the course of the procedure for conscious sedation. PROCEDURE: After adequate topical anesthesia was obtained, conscious sedation was induced. An attempt was made to pass the Olympus bronchoscope through the left nasal passage, but bony structures there did not allow passage. A bite block was placed, and the bronchoscope was introduced through the mouth into the oropharynx. Visualization in this area was a little more difficult with the through the mouth approach. Vocal cords appeared normal and moved well and approximated in the midline. Bronchoscope was introduced into the tracheobronchial tree. Trachea, mainstem, lobar, segmental and subsegmental bronchi were all inspected. Endobronchial anatomy was normal with the exception of the left upper lobe where the left upper lobe segmental frank were thickened, and there was a tumorous-appearing mass on the anterior wall proximal to the segmental bronchi of the left upper lobe. This area was subjected to washings which will be submitted for AFB and fungal culture and cytology. It was then subjected to brushing which will be submitted for cytology. It was then subjected to endobronchial biopsy which will be submitted for histopathology. It was then subjected to needle aspirate of the tumorous mass on the anterior wall of the left upper lobe which will be submitted to histopathology/cytology. The patient had some hemoptysis and bleeding evident on introduction of the scope to the region. There was the usual amount of bleeding with the biopsy procedure, and all bleeding was quiescent at the end of the procedure. As the patient has a left atrial mural thrombus and may be reinstituted on heparin, this area was splayed with one aliquot of 1:10,000 epinephrine for added insurance for hemostasis. Bronchoscope was then withdrawn from the patient. The patient was returned to the recovery room in good and stable condition. COMPLICATIONS: There were no apparent complications during the course of the procedure. Photographs taken during the course of the procedure: 1. Vocal cords. 2. Left, right main frank. 3. Right upper lobe. 4. Right middle lobe, right lower lobe. 5. Right lower lobe basal segment bronchi. 6. Left upper lobe, left lower lobe. 7. Left lower lobe. 8. Left upper lobe. 9. Vocal cords. KJP:[email or web address] Job ID: [id number] Doc ID: [id number] Gerald Wade MD
[2017-08-08] MEDS ORDERED: methylPREDNISolone SOD SUCC 125 MG/2 ML VIAL IV ONE (14:44)
--- NOTE | 2017-08-08 14:53 | Internal Med Progress Note ---
Medical - PN: Subj Patient information: Note initiated : 08/08/17 at 2:50 pm Service Date, if different from initiated Date: [] Patient: Sukumar Burt 76 y/o M admitted on 08/03/17 for BRONCHOSCOPY/LUNG BIOPSY. Chief Complaint: [] Interval history: Aug 03 Patient is a 76-year-old male with a history of advanced COPD, hypercholesterolemia, BPH, recent tachycardia who presents to the ED with progressive pulmonary symptoms. Approximately 10 days ago, the patient started developing pulmonary symptoms coughing with sputum production, occasionally bloody. He presented to the ED here on her poor A6, was diagnosed with lingular pneumonia, treated with Ceftin and a 5 day course of prednisone. Since that time he slept better and felt good for the first 2 days, then has progressively declined. He continues to have cough. He continues to have significant pleuritic chest pain, worse with inspiration and with cough. It's on the left side of the chest over the lingular region. It's moderate to severe in intensity. It hurts for him to lay on that side. He follows up in Dr. Hayes's office today, where Ceftin was stopped and Levaquin was prescribed as well as another taper prednisone. He was also tachycardic, was recommended he present to the emergency department. He presents to the ED, where initially his pulse is 124 with bigeminy on EKG. He is continuing to cough, producing yellowish sputum which is occasionally bloody , though sometimes it's almost all blood. He's felt chilled, though he feels chilly often. He's had no fever. He's had no night sweats. No history of TB exposure. No recent travel. He's had no weight loss. Sputum is yellowish tinged. Repeat radiograph in the ED shows progressive left lingular infiltrate and consolidation. He is being admitted for further treatment of pneumonia, failed outpatient therapy. Feb 15 Feeling a bit stronger this morning. Has been seen by Dr. Wade. CT yesterday shows left hilar mass with partial bronchial obstruction, likely explaining his progressive pneumonia. 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 Plan is to treat with further antibiotics and strengthening prior to attempting bronchoscopy, likely Tuesday morning. Still with some cough, not much hemoptysis. Chest pain seems to be slowly improving. Feb 16 Stable on heparin infusion. Still occasional mild hemoptysis, but is not worsened on anticoagulation. Overnight last night was having runs of SVT/ atrial tachycardia up to the 140s, with subsequent pauses resumption of sinus rhythm and bigeminy. Seemed to improve later in the night, after his evening dose of metoprolol. Patient was asymptomatic during these. August 06 Remained stable. Occasional streaky hemoptysis. Chest pain is improved significantly. Appetite is pretty good. Still gets quite winded with exertion to the bathroom and back. Remains on a heparin infusion. Decreased amount of atrial arrhythmia. Occasional pauses remain. August 07 Slept very well after trazodone last night, feels rested. He had a bowel movement yesterday. Occasional dark bloody sputum. Otherwise tolerating heparin infusion. Occasional of sided chest pain, though significantly improved from admission. Appetite improved. Still quite winded with exertion. Tele stable, no runs of tachyarrhythmia. Aug 08 patient seen and examined, no acute overnight events, patient heparin drip was stopped last night, patient underwent bronchoscopy today with biopsy. Plan to monitor him post procedure and resume heparin GGT this afternoon. The patient has some shortness of breath and increased oxygen requirement after the bronchoscopy, he is wheezing bilaterally. Patient does have a history of severe COPD and has had recent bouts of steroid treatments. The patient otherwise denies any complaints. There is no nausea, no vomiting, no fever, no chills. Pertinent ROS: Denies headache, dizziness Denies chest pain, palpitations Denies cough ,mild shortness of breath present. Denies abdominal pain, nausea or vomiting. - Constitutional Vitals: Vital Signs Temp Pulse Resp BP Pulse Ox 98.3 F 104 H 24 H 128/63 94 08/08/17 11:43 08/08/17 14:28 08/08/17 14:28 08/08/17 12:00 08/08/17 12:00 Period Temp Pulse Resp BP Sys/Giang Pulse Ox Last 24 Hr 97.8 F-99.8 F 59-104 16-24 100-145/49-80 89-97 Intake and Output 08/08/17 08/08/17 08/08/17 05:59 13:59 21:59 Intake Total 540 / 540 510 / 510 200 / 200 Output Total 100 / 100 300 / 300 200 / 200 Balance 440 / 440 210 / 210 0 / 0 Weight 162 lb 8 oz Patient Weight 08/09/17 05:59 Weight 162 lb 8 oz Intake & Output: Intake & Output 08/08/17 08/08/17 08/08/17 05:59 13:59 21:59 Intake Total 540 / 540 510 / 510 200 / 200 Output Total 100 / 100 300 / 300 200 / 200 Balance 440 / 440 210 / 210 0 / 0 Weight 162 lb 8 oz Intake: IV 240 / 240 150 / 150 Heparin/D5w 25,000 Unit In 240 / 240 Premix 1 Bag @ 14 UNIT/KG/HR 20 .32 mls/hr IV .Q24H FLAKO Rx#: [id number] Oral 300 / 300 360 / 360 200 / 200 Output: Void Amount 100 / 100 300 / 300 200 / 200 Other: Meal Lunch Percent of Meal Consumed 100% # Voids 1 2 Exam: Constitutional; Afebrile, cooperative, , not in distress. Eyes- No icterus, , No periorbital swelling Ears- Ext ear normal, hearing normal to conversation. Neck- Midline trachea, supple Respiratory system: Air Entry equal on both sides, No crackles , prolonged expiratory phase, bilateral expiratory wheezes present . CVS- Rate rhythm regular, S1,S2 heard, no gallop, no rub. 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 all extremities, no gross focal deficit noted.a bit drowsy after the procedure Medical - PN: Obj Da - Labs CBC & Chem 7: 08/08/17 04:05 08/08/17 04:05 Labs: Abnormal Lab Results 08/08/17 08/08/17 08/07/17 04:05 04:05 04:09 RBC 3.44 L Hgb 10.4 L Hct 30.5 L Gran % Lymph % (Auto) 12.5 L Gran # Lymph # (Auto) 1.2 L APTT 93 H Carbon Dioxide BUN 7 L Glucose 115 H Calcium 7.6 L Phosphorus 2.1 L Total Protein 5.2 L Albumin 2.7 L 08/07/17 08/07/17 08/06/17 04:09 04:09 16:00 RBC 3.42 L Hgb 10.5 L Hct 30.6 L Gran % Lymph % (Auto) 13.5 L Gran # Lymph # (Auto) 1.4 L APTT 81 H Carbon Dioxide BUN 7 L Glucose 126 H Calcium 7.5 L Phosphorus Total Protein Albumin 08/06/17 08/06/17 08/06/17 08:04 04:08 04:08 RBC 3.54 L Hgb 10.8 L Hct 31.7 L Gran % 78.2 H Lymph % (Auto) 11.6 L Gran # 8.4 H Lymph # (Auto) 1.2 L APTT 87 H Carbon Dioxide 21 L BUN Glucose 113 H Calcium 7.9 L Phosphorus Total Protein Albumin 08/05/17 08/05/17 22:00 15:55 RBC Hgb Hct Gran % Lymph % (Auto) Gran # Lymph # (Auto) APTT 55 H 87 H Carbon Dioxide BUN Glucose Calcium Phosphorus Total Protein Albumin Meds: Medications Acetaminophen (Tylenol) 650 mg PO Q6HP PRN PRN Reason: PAIN/FEVER > 101 Last Admin: 08/04/17 23:25 Dose: 650 mg Hydrocodone Bitart/Acetaminophen ([place] 10/325mg) 1 tab PO Q4HP PRN PRN Reason: Pain Last Admin: 08/04/17 03:44 Dose: 1 tab Albuterol Sulfate (Ventolin) 2.5 mg NEB Q2HP PRN PRN Reason: Shortness Of Breath Last Admin: 08/08/17 09:21 Dose: 2.5 mg Albuterol Sulfate (Ventolin) 1 puff INH Q4HP PRN PRN Reason: Shortness Of Breath Albuterol/Ipratropium (Duoneb) 3 ml NEB Q4HRT [facility] Last Admin: 08/08/17 14:27 Dose: 3 ml Dutasteride (Avodart) 0.5 mg PO HS [facility] Last Admin: 08/07/17 20:09 Dose: 0.5 mg Levofloxacin (Levaquin) 750 mg in 150 mls @ 100 mls/hr IV DAILY [facility] Last Infusion: 08/08/17 12:38 Dose: Infused Sodium Chloride (Sodium Chloride 0.9%) 1,000 mls @ 25 mls/hr IV .Q24H [facility] Last Admin: 08/07/17 20:41 Dose: Not Given Sodium Chloride (Sodium Chloride 0.9%) 250 mls @ 1 mls/hr INTRATRACH .Q24H PRN PRN Reason: Bleeding Lorazepam (Ativan) 0.5 mg PO Q4HP PRN PRN Reason: ANXIETY/SEDATION Last Admin: 08/07/17 20:09 Dose: 0.5 mg Metoprolol Succinate (Toprol Xl) [address] [facility] Last Admin: 08/07/17 20:09 Dose: 50 mg Omeprazole (Prilosec) [address] [facility] Last Admin: 08/07/17 20:09 Dose: 20 mg Ondansetron HCl (Zofran) 4 mg IV Q4HP PRN PRN Reason: Nausea And Vomiting Fluticasone Furoate [Arnuity Ellipta] 100 Mcg [address] [facility] Last Admin: 08/07/17 20:09 Dose: 1 dose Tiotropium Br/Olodaterol Hcl [ Stiolto Respimat In [address] [facility] Last Admin: 08/07/17 20:09 Dose: 1 dose Fluticasone Furoate [Arnuity Ellipta] 200 Mcg [address] [facility] Last Admin: 08/07/17 20:09 Dose: 1 dose Prednisone (Prednisone) 40 mg PO [facility] Simvastatin (Zocor) [address] [facility] Last Admin: 08/07/17 20:13 Dose: 40 mg Terazosin HCl (Hytrin) [address] [facility] Last Admin: 08/07/17 20:13 Dose: 5 mg Trazodone HCl (Desyrel) 50 mg PO [facility] PRN PRN Reason: Insomnia Medical - PN: A/P - Time Spent With Patient Total time spent is greater than 50% in coordination of care (as documented) at patient's floor/unit and/or counseling patient: - Narrative A/P Narrative: 76-year-old male with advanced COPD presents with ongoing pulmonary symptoms, cough, occasional hemoptysis, pleuritic chest pain and worsening infiltrate on chest x-ray. Pneumonia. Postobstructive pneumonia, diagnosed with CT scan with left bronchial mass. Continues to improve slowly with antibiotics. Has been seen in consultation by Dr. Wade for pulmonary. Plan: continue levofloxacin IV, microbiology is negative so far. Left lung tumor. Concern for lung cancer. Plan: Bronchoscopy done. 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 Patient likely hypercoagulable secondary to presumptive neoplasia. Tolerating heparin infusion without increase in hemoptysis. Plan: resume IV heparin GGT when his cough, hemoptysis or significant bleeding is low. Likely this afternoon. Echo ordered, results pending, will likely need anticoagulation at discharge and follow-up with cardiology. COPD. with post procedure exacerbation Plan: give 1 dose of IV steroids and start by mouth prednisone from tomorrowDuoNeb 74 hours for now. Tachycardia. Likely related to his pulmonary process. Continues with bigeminy , but no tachyarrhythmias, Plan: Continue metoprolol, continue tele. Gastroesophageal reflux disease. Stable. Plan: Continue home meds Urticaria. Patient takes evening antihistamine to prevent hives. Plan: Continue BPH with lower urinary tract symptoms. Stable on current regimen. Plan: Continue home regimen. Medical - PN: Qual - VTE Deep Vein Thrombosis/Pulmonary Embolism Present on Admission: No
[2017-08-08] MEDS ORDERED: HEPARIN/D5W 25,000 UNIT in PREMIX 1 BAG IV SCH (17:45)
[2017-08-08] MEDS: HEPARIN/D5W 25,000 UNIT in PREMIX 1 BAG IV SCH (19:27)
[2017-08-08] MEDS: FLUTICASONE FUROATE 100 MCG INH SCH (20:58)
[2017-08-08] MEDS: FLUTICASONE FUROATE 200 MCG INH SCH (20:58)
[2017-08-08] MEDS: OMEPRAZOLE 20 MG CAPSULE PO SCH (21:00)
[2017-08-08] MEDS: TERAZOSIN 5 MG CAPSULE PO SCH (21:00)
[2017-08-08] MEDS: METOPROLOL SUCCINATE 25 MG TAB.XL.24H PO SCH (21:00)
[2017-08-08] MEDS: LORazepam 0.5 MG TABLET PO PRN (21:00)
[2017-08-08] MEDS: OLODATEROL HCL INH SCH (21:00)
[2017-08-08] MEDS: TIOTROPIUM BR INH SCH (21:00)
[2017-08-08] MEDS: SIMVASTATIN 40 MG TABLET PO SCH (21:00)
[2017-08-08] MEDS: DUTASTERIDE 0.5 MG CAPSULE PO SCH (21:03)
[2017-08-09] MEDS: IPRATROPIUM/ALBUTEROL 3 ML AMPUL.NEB NEB SCH ×6 (03:31→22:54)
[2017-08-09 05:47] LABS: Basophils # (Auto) 0 K/mcL (0.0-0.3); Basophils % (Auto) 0 % (0.0-2.0); Eosinophils # (Auto) 0.4 K/mcL (0.0-0.7); Eosinophils % (Auto) 2.7 % (0.0-7.0); Granulocytes % (Auto) 92.4 % (38.0-78.0); Lymphocytes # (Auto) 0.4 K/mcL (1.5-4.8); Lymphocytes % (Auto) 2.9 % (15.5-49.0); Mean Cell Volume 89.5 fL (80.0-100.0); Mean Corpuscular HGB Conc 33.7 g/dL (31.0-36.0); Mean Corpuscular Hemoglobin 30.2 pg (26.0-34.0); Monocytes # (Auto) 0.3 K/mcL (0.1-0.9); Platelet Count 166 K/mcL (140-440); Red Cell Distribution Width 14.1 % (11.5-14.5)
[2017-08-09 05:55] LABS: ALT/SGPT 21 U/l (0-40); Albumin 2.6 gm/dL (3.2-5.2); Albumin/Globulin Ratio 0.9 (1.0-2.3); Alkaline Phosphatase 58 U/L (39-117); Bilirubin,Direct < 0.2 mg/dL (0.0-0.3); Blood Urea Nitrogen 7 mg/dl (8-23); Gamma Glutamyl Transpeptidase 42 U/L (8-61); Uric Acid 3.7 mg/dL (2.5-8.0)
[2017-08-09] MEDS: predniSONE 20 MG TABLET PO SCH (08:12)
[2017-08-09] MEDS: 0.9 % SODIUM CHLORIDE 1,000 ML IV SCH ×2 (08:15→16:46)
[2017-08-09] MEDS: LEVOFLOXACIN 750 MG/150 ML BAG IV SCH (08:20)
--- NOTE | 2017-08-09 09:33 | XRay Report ---
HISTORY: Reason for Exam:shortness of breath FINDINGS: There is a large left-sided pleural effusion and a very small right-sided effusion. These have enlarged since prior chest x-ray and chest CT done on 08/03/17. Associated with this is dense consolidation of the basilar segments of the left lower lobe. There is is a moderate alveolar infiltrate throughout the lingula. This has not changed significantly since 08/03/17. However, the patient is now developing an alveolar infiltrate in the right upper lobe and around the right hilum. There is underlying COPD in both lungs. The heart is obscured by the consolidation in the left lower thorax. The pulmonary vessels cannot be evaluated due to the diffuse pulmonary infiltrates. IMPRESSION: Worsening bilateral pneumonia, with the greatest involvement in the right upper lobe and lingula Large left-sided pleural effusion with associated atelectasis in the left lower lobe Interpreted and Authenticated by: Alen Fields 08/09/17
[2017-08-09] MEDS ORDERED: FUROSEMIDE 20 MG/2 ML VIAL IV ONE (09:54)
[2017-08-09] MEDS ORDERED: VANCOMYCIN PER PHARMACY IV SCH (09:55)
[2017-08-09] MEDS: VANCOMYCIN 1,500 MG in 0.9 % SODIUM CHLORIDE 500 ML IV SCH (10:55)
[2017-08-09] MEDS: CEFEPIME 2 GM VIAL IV SCH ×3 (10:55→21:37)
[2017-08-09] MEDS: methylPREDNISolone SOD SUCC 125 MG/2 ML VIAL IV SCH ×3 (10:55→21:38)
[2017-08-09] MEDS ORDERED: 0.9 % SODIUM CHLORIDE 1,000 ML IV SCH (11:00)
--- NOTE | 2017-08-09 17:30 | Non-GYN Cytology Report ---
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 (DMT:efraín) COMMENT: The case is reviewed along with the patient's concurrent left upper lobe biopsies ([id number]) from an endoscopically identified mass. 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 This brushing specimen has clusters of neoplastic cells that are morphologically similar to those seen in the biopsy. MICROSCOPIC DESCRIPTION A thinprep monolayer slide and a cell block slide are reviewed. Each contains scattered individual and clusters of keratinizing malignant epithelial cells. Individual neoplastic cells have variably pleomorphic nuclei, prominent nucleoli and variable amounts of eosinophilic granular to keratinizing cytoplasm. The background has few lymphocytes, pigmented macrophages, ciliated respiratory bronchial cells and proteinaceous debris. (DMT:efraín) EXTERNAL COMMENT Electronically Signed by: Leland Church M.D.
--- NOTE | 2017-08-09 17:30 | Non-GYN Cytology Report ---
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 (DMT:efraín) COMMENT: The case is reviewed along with the patient's concurrent left upper lobe biopsies ([id number]) from an endoscopically identified mass. 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 This washing fluid has clusters of neoplastic cells that are morphologically similar to those seen in the biopsy. MICROSCOPIC DESCRIPTION A thinprep monolayer slide and a cell block slide are reviewed. Each contains scattered individual and clusters of neoplastic keratinizing epithelioid cells. Individual neoplastic cells have high grade, variably pleomorphic nuclei, prominent nucleoli and variable amounts of eosinophilic cytoplasm. Numerous hyperkeratotic and parakeratotic cells are seen. The background has few neutrophils, lymphocytes, pigmented macrophages and proteinaceous debris. (DMT:efraín) EXTERNAL COMMENT Electronically Signed by: Leland Church M.D.
--- NOTE | 2017-08-09 17:30 | Surgical Pathology Report ---
HISTOLOGY SPECIMEN MICROSCOPIC DIAGNOSIS SPECIMEN A - LUNG, LEFT UPPER LOBE MASS, BIOPSY: -- INVASIVE MODERATELY TO POORLY DIFFERENTIATED SQUAMOUS CELL CARCINOMA. SPECIMEN B - LUNG, LEFT UPPER LOBE MASS, ASPIRATE: -- INVASIVE MODERATELY TO POORLY DIFFERENTIATED SQUAMOUS CELL CARCINOMA. (DMT:efraín) GROSS DESCRIPTION Specimen A: Received in formalin labeled biopsy left upper lobe lung, are seven red-michael tissue fragments ranging in size from 0.1 x 0.1 x 0.1 to 0.2 x 0.1 x 0.1 cm. Totally submitted - two cassettes. Specimen B: Received in formalin labeled left upper lobe lung needle aspiration, is a scant amount of wispy red-michael tissue, in aggregate 0.2 x 0.1 by less than 0.1 cm. Filtered, totally submitted - one cassette. (STM:[facility]) Electronically Signed by: Leland Church M.D.
--- NOTE | 2017-08-09 18:27 | Internal Med Progress Note ---
Medical - PN: Subj Patient information: Note initiated : 08/09/17 at 6:24 pm Service Date, if different from initiated Date: [] Patient: Sukumar Burt 76 y/o M admitted on 08/03/17 for BRONCHOSCOPY/LUNG BIOPSY. Chief Complaint: [] Interval history: Aug 03 Patient is a 76-year-old male with a history of advanced COPD, hypercholesterolemia, BPH, recent tachycardia who presents to the ED with progressive pulmonary symptoms. Approximately 10 days ago, the patient started developing pulmonary symptoms coughing with sputum production, occasionally bloody. He presented to the ED here on her poor A6, was diagnosed with lingular pneumonia, treated with Ceftin and a 5 day course of prednisone. Since that time he slept better and felt good for the first 2 days, then has progressively declined. He continues to have cough. He continues to have significant pleuritic chest pain, worse with inspiration and with cough. It's on the left side of the chest over the lingular region. It's moderate to severe in intensity. It hurts for him to lay on that side. He follows up in Dr. Hayes's office today, where Ceftin was stopped and Levaquin was prescribed as well as another taper prednisone. He was also tachycardic, was recommended he present to the emergency department. He presents to the ED, where initially his pulse is 124 with bigeminy on EKG. He is continuing to cough, producing yellowish sputum which is occasionally bloody , though sometimes it's almost all blood. He's felt chilled, though he feels chilly often. He's had no fever. He's had no night sweats. No history of TB exposure. No recent travel. He's had no weight loss. Sputum is yellowish tinged. Repeat radiograph in the ED shows progressive left lingular infiltrate and consolidation. He is being admitted for further treatment of pneumonia, failed outpatient therapy. Feb 15 Feeling a bit stronger this morning. Has been seen by Dr. Wade. CT yesterday shows left hilar mass with partial bronchial obstruction, likely explaining his progressive pneumonia. 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 Plan is to treat with further antibiotics and strengthening prior to attempting bronchoscopy, likely Tuesday morning. Still with some cough, not much hemoptysis. Chest pain seems to be slowly improving. Feb 16 Stable on heparin infusion. Still occasional mild hemoptysis, but is not worsened on anticoagulation. Overnight last night was having runs of SVT/ atrial tachycardia up to the 140s, with subsequent pauses resumption of sinus rhythm and bigeminy. Seemed to improve later in the night, after his evening dose of metoprolol. Patient was asymptomatic during these. August 06 Remained stable. Occasional streaky hemoptysis. Chest pain is improved significantly. Appetite is pretty good. Still gets quite winded with exertion to the bathroom and back. Remains on a heparin infusion. Decreased amount of atrial arrhythmia. Occasional pauses remain. August 07 Slept very well after trazodone last night, feels rested. He had a bowel movement yesterday. Occasional dark bloody sputum. Otherwise tolerating heparin infusion. Occasional of sided chest pain, though significantly improved from admission. Appetite improved. Still quite winded with exertion. Tele stable, no runs of tachyarrhythmia. Aug 08 patient seen and examined, no acute overnight events, patient heparin drip was stopped last night, patient underwent bronchoscopy today with biopsy. Plan to monitor him post procedure and resume heparin GGT this afternoon. The patient has some shortness of breath and increased oxygen requirement after the bronchoscopy, he is wheezing bilaterally. Patient does have a history of severe COPD and has had recent bouts of steroid treatments. The patient otherwise denies any complaints. There is no nausea, no vomiting, no fever, no chills. Aug 09 patient seen and examined, noted that his respiratory status is slightly worse today compared to yesterday. He was started on IV steroids as well as DuoNeb's yesterday, but his respiratory condition did not improve significantly slightly worse today. He underwent a cht x-ray which showed worsening pneumonia bilaterally, normal prominent in the right upper lobe. The patient also has worsening pleural effusion on the left The patient admits to be having some shortness of breath. Denies any hemoptysis. Denies any fever, no chills, no headache, no nausea, no abdominal pain I reviewed with the patient that his breathing status is worsening now, andf that he consider using BiPAP. ABG was drawn which showed hypoxia on 5 L of oxygen. Patient was started on BiPAP treatment. He seems to be tolerating it well. Lasix 1 given. Patient is on heparin drip and has been tolerating this well I reviewed the patient's condition and changed status with the patient's as well as the daughter. Pertinent ROS: Denies headache, dizziness Denies chest pain, palpitations cough and shortness of breath present, no hemoptysis Denies abdominal pain, nausea or vomiting. - Constitutional Vitals: Vital Signs Temp Pulse Resp BP Pulse Ox 97.6 F 78 18 107/64 97 08/09/17 16:00 08/09/17 16:00 08/09/17 16:00 08/09/17 16:00 08/09/17 16:00 Period Temp Pulse Resp BP Sys/Giang Pulse Ox Last 24 Hr 97.0 F-99.5 F 69-96 16-22 106-136/43-67 93-98 Intake and Output 08/09/17 08/09/17 08/09/17 05:59 13:59 21:59 Intake Total 0 / 0 2080 / 2080 1000 / 1000 Output Total 525 / 525 365 / 365 250 / 250 Balance -525 / -525 1715 / 1715 750 / 750 Intake & Output: Intake & Output 08/09/17 08/09/17 08/09/17 05:59 13:59 21:59 Intake Total 0 / 0 2080 / 2080 1000 / 1000 Output Total 525 / 525 365 / 365 250 / 250 Balance -525 / -525 1715 / 1715 750 / 750 Intake: IV 1600 / 1600 1000 / 1000 Sodium Chloride 0.9% 1,000 ml @ 1000 / 1000 250 mls/hr IV .Q4H [facility] Rx#: [id number] Vancomycin 1,500 mg In Sodium 500 / 500 Chloride 0.9% 500 ml @ 333.3 mls/hr IV Q24H [facility] Rx#: [id number] Oral 0 / 0 480 / 480 Output: Urine Catheter Amount 250 / 250 Void Amount 525 / 525 365 / 365 Other: Meal 0range juice Percent of Meal Consumed 100% Exam: Constitutional; Afebrile, cooperative, alert, in mild respiratory distress Eyes- No icterus, , No periorbital swelling Ears- Ext ear normal, hearing normal to conversation. Neck- Midline trachea, supple Respiratory system: decreased air entry on the left base, bilateral expiratory wheezes, prolonged expiratory phase. Mild basilar crackles. CVS- Rate rhythm regular, S1,S2 heard, no gallop, no rub. Abdomen- Soft nontender abdomen, no organomegaly, no tenderness, no guarding or rigidity, [employer]- AOOx3, moving all extremities, no gross focal deficit noted. Medical - PN: Obj Da - Labs CBC & Chem 7: 08/09/17 03:35 08/09/17 03:35 Labs: Abnormal Lab Results 08/09/17 08/09/17 08/09/17 11:05 04:40 03:35 WBC RBC Hgb Hct Gran % Lymph % (Auto) Gran # Lymph # (Auto) APTT 63 H 65 H BUN 7 L Creatinine 0.6 L Glucose 201 H Calcium 7.9 L Phosphorus 2.0 L Total Protein 5.5 L Albumin 2.6 L Albumin/Globulin Ratio 0.9 L 08/09/17 08/08/17 08/08/17 03:35 23:55 04:05 WBC 15.3 H RBC 3.40 L Hgb 10.2 L Hct 30.4 L Gran % 92.4 H Lymph % (Auto) 2.9 L Gran # 14.1 H Lymph # (Auto) 0.4 L APTT 61 H BUN 7 L Creatinine Glucose 115 H Calcium 7.6 L Phosphorus 2.1 L Total Protein 5.2 L Albumin 2.7 L Albumin/Globulin Ratio 08/08/17 08/07/17 08/07/17 04:05 04:09 04:09 WBC RBC 3.44 L 3.42 L Hgb 10.4 L 10.5 L Hct 30.5 L 30.6 L Gran % Lymph % (Auto) 12.5 L 13.5 L Gran # Lymph # (Auto) 1.2 L 1.4 L APTT 93 H BUN Creatinine Glucose Calcium Phosphorus Total Protein Albumin Albumin/Globulin Ratio 08/07/17 04:09 WBC RBC Hgb Hct Gran % Lymph % (Auto) Gran # Lymph # (Auto) APTT BUN 7 L Creatinine Glucose 126 H Calcium 7.5 L Phosphorus Total Protein Albumin Albumin/Globulin Ratio Meds: Medications Acetaminophen (Tylenol) 650 mg PO Q6HP PRN PRN Reason: PAIN/FEVER > 101 Last Admin: 08/04/17 23:25 Dose: 650 mg Hydrocodone Bitart/Acetaminophen ([place] 10/325mg) 1 tab PO Q4HP PRN PRN Reason: Pain Last Admin: 08/04/17 03:44 Dose: 1 tab Albuterol Sulfate (Ventolin) 2.5 mg NEB Q2HP PRN PRN Reason: Shortness Of Breath Last Admin: 08/08/17 09:21 Dose: 2.5 mg Albuterol Sulfate (Ventolin) 1 puff INH Q4HP PRN PRN Reason: Shortness Of Breath Albuterol/Ipratropium (Duoneb) 3 ml NEB Q4HRT [facility] Last Admin: 08/09/17 15:04 Dose: 3 ml Cefepime HCl (Maxipime) 2 gm IV Q8H [facility] Last Admin: 08/09/17 16:36 Dose: 2 gm Dutasteride (Avodart) 0.5 mg PO [facility] Last Admin: 08/08/17 21:03 Dose: 0.5 mg Levofloxacin (Levaquin) 750 mg in 150 mls @ 100 mls/hr IV DAILY [facility] Last Infusion: 08/09/17 09:20 Dose: 0 mls/hr Sodium Chloride (Sodium Chloride 0.9%) 1,000 mls @ 25 mls/hr IV .Q24H [facility] Last Admin: 08/09/17 16:46 Dose: Not Given Sodium Chloride (Sodium Chloride 0.9%) 250 mls @ 1 mls/hr INTRATRACH .Q24H PRN PRN Reason: Bleeding Heparin Sodium/Dextrose 25,000 (unit/ Premix) 500 mls @ 20.63 mls/hr IV .Q24H [facility]; 14 UNIT/KG/HR PRN Reason: Protocol Last Admin: 08/08/17 19:27 Dose: 14 unit/kg/hr, 20.63 mls/hr Vancomycin HCl 1,500 mg/ (Sodium Chloride) 500 mls @ 333.3 mls/hr IV Q24H [facility] Last Infusion: 08/09/17 13:43 Dose: Infused Lorazepam (Ativan) 0.5 mg PO Q4HP PRN PRN Reason: ANXIETY/SEDATION Last Admin: 08/08/17 21:00 Dose: 0.5 mg Methylprednisolone Sodium Succinate (Solu-Medrol) 62.5 mg IV Q8 [facility] Last Admin: 08/09/17 16:37 Dose: 62.5 mg Metoprolol Succinate (Toprol Xl) 50 mg PO [facility] Last Admin: 08/08/17 21:00 Dose: 50 mg Omeprazole (Prilosec) 20 mg PO [facility] Last Admin: 08/08/17 21:00 Dose: 20 mg Ondansetron HCl (Zofran) 4 mg IV Q4HP PRN PRN Reason: Nausea And Vomiting Fluticasone Furoate [Arnuity Ellipta] 100 Mcg 1 dose INH [facility] Last Admin: 08/08/17 20:58 Dose: 1 dose Tiotropium Br/Olodaterol Hcl [ Stiolto Respimat In 1 dose INH [facility] Last Admin: 08/08/17 21:00 Dose: 1 dose Fluticasone Furoate [Arnuity Ellipta] 200 Mcg 1 dose INH [facility] Last Admin: 08/08/17 20:58 Dose: 1 dose Prednisone (Prednisone) 40 mg PO [facility] Last Admin: 08/09/17 08:12 Dose: 40 mg Simvastatin (Zocor) 40 mg PO [facility] Last Admin: 08/08/17 21:00 Dose: 40 mg Terazosin HCl (Hytrin) 5 mg PO [facility] Last Admin: 08/08/17 21:00 Dose: 5 mg Trazodone HCl (Desyrel) 50 mg PO [facility] PRN PRN Reason: Insomnia Vancomycin HCl (Vancomycin Per Pharmacy) [address] [facility] [place] Medical - PN: A/P - Time Spent With Patient Total time spent is greater than 50% in coordination of care (as documented) at patient's floor/unit and/or counseling patient: - Narrative A/P Narrative: 76-year-old male with advanced COPD presents with ongoing pulmonary symptoms, cough, occasional hemoptysis, pleuritic chest pain and worsening infiltrate on chest x-ray. Pneumonia, HCAP now, worsening, . Postobstructive pneumonia, Plan: discontinue IV levofloxacin, start IV vancomycin and Zosyn. Left lung tumor. Concern for lung cancer. pathology positive for squamous cell cancer. We'll update family tomorrow Plan: Bronchoscopy done. 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 Patient likely hypercoagulable secondary to presumptive neoplasia. Tolerating heparin infusion without increase in hemoptysis. Plan: heparin GGT, PTT at goal, plan to switch to Lovenox tomorrow and Coumadin. COPD exacerbation-IV steroids, DuoNeb's antibiotics. Likely exacerbated due to pneumonia and recent bronchoscopy procedure Acute hypoxic respiratory failure-started on BiPAP, tolerating well. Patient is good tidal volumes Tachycardia. Likely related to his pulmonary process. Continues with bigeminy , but no tachyarrhythmias, Plan: Continue metoprolol, continue tele. Gastroesophageal reflux disease. Stable. Plan: Continue home meds Urticaria. Patient takes evening antihistamine to prevent hives. Plan: Continue BPH with lower urinary tract symptoms. Stable on current regimen. Plan: Continue home regimen. Medical - PN: Qual - VTE Deep Vein Thrombosis/Pulmonary Embolism Present on Admission: No
[2017-08-09] MEDS: HEPARIN/D5W 25,000 UNIT in PREMIX 1 BAG IV SCH (18:59)
[2017-08-09] MEDS: OLODATEROL HCL INH SCH (20:32)
[2017-08-09] MEDS: TIOTROPIUM BR INH SCH (20:32)
[2017-08-09] MEDS: OMEPRAZOLE 20 MG CAPSULE PO SCH (20:33)
[2017-08-09] MEDS: TERAZOSIN 5 MG CAPSULE PO SCH (20:33)
[2017-08-09] MEDS: METOPROLOL SUCCINATE 25 MG TAB.XL.24H PO SCH (20:33)
[2017-08-09] MEDS: DUTASTERIDE 0.5 MG CAPSULE PO SCH (20:33)
[2017-08-09] MEDS: SIMVASTATIN 40 MG TABLET PO SCH (20:33)
[2017-08-09] MEDS: FLUTICASONE FUROATE 200 MCG INH SCH (20:33)
[2017-08-09] MEDS: FLUTICASONE FUROATE 100 MCG INH SCH (20:34)
[2017-08-09] MEDS: LORazepam 0.5 MG TABLET PO PRN (21:39)
[2017-08-10] MEDS: IPRATROPIUM/ALBUTEROL 3 ML AMPUL.NEB NEB SCH ×6 (02:52→23:09)
[2017-08-10] MEDS: CEFEPIME 2 GM VIAL IV SCH ×3 (05:32→22:18)
[2017-08-10] MEDS: methylPREDNISolone SOD SUCC 125 MG/2 ML VIAL IV SCH ×3 (05:33→22:18)
[2017-08-10 06:01] LABS: Basophils # (Auto) 0 K/mcL (0.0-0.3); Basophils % (Auto) 0 % (0.0-2.0); Eosinophils # (Auto) 0.4 K/mcL (0.0-0.7); Granulocytes % (Auto) 92.6 % (38.0-78.0); Lymphocytes # (Auto) 0.6 K/mcL (1.5-4.8); Lymphocytes % (Auto) 2.8 % (15.5-49.0); Mean Cell Volume 90.1 fL (80.0-100.0); Mean Corpuscular HGB Conc 33.7 g/dL (31.0-36.0); Mean Corpuscular Hemoglobin 30.4 pg (26.0-34.0); Monocytes # (Auto) 0.5 K/mcL (0.1-0.9); Monocytes % (Auto) 2.6 % (1.0-12.0); Platelet Count 179 K/mcL (140-440); RBC 3.33 M/mcL (4.50-5.90); Red Cell Distribution Width 14.2 % (11.5-14.5)
[2017-08-10 06:15] LABS: ALT/SGPT 31 U/l (0-40); Albumin 2.8 gm/dL (3.2-5.2); Albumin/Globulin Ratio 0.9 (1.0-2.3); Alkaline Phosphatase 63 U/L (39-117); Bilirubin,Direct < 0.2 mg/dL (0.0-0.3); Blood Urea Nitrogen 16 mg/dl (8-23); Gamma Glutamyl Transpeptidase 43 U/L (8-61); Uric Acid 3.9 mg/dL (2.5-8.0)
--- NOTE | 2017-08-10 08:33 | XRay Report ---
HISTORY: Reason for Exam:pneumonia FINDINGS: There is severe consolidation of left lower lobe with moderate diffuse alveolar infiltrates throughout the remainder of both lungs. There is superimposed moderate size pleural effusion on the left side and a small right-sided effusion. The heart is obscured by the pleural fluid and consolidated lung parenchyma. The infiltrates have become significantly worse since 08/09/17. The volume of pleural fluid has slightly diminished on the left side. IMPRESSION: Severe widespread pulmonary infiltrates which have become significantly worse. This may be due to pneumonia, pulmonary edema, atelectasis, ARDS or a combination of the above. Interpreted and Authenticated by: Alen Fields 08/10/17
[2017-08-10] MEDS ORDERED: ENOXAPARIN 60 MG/0.6 ML SYRINGE SQ SCH (09:28)
[2017-08-10] MEDS: LEVOFLOXACIN 750 MG/150 ML BAG IV SCH (09:54)
[2017-08-10] MEDS: VANCOMYCIN 1,500 MG in 0.9 % SODIUM CHLORIDE 500 ML IV SCH (09:56)
[2017-08-10] MEDS: predniSONE 20 MG TABLET PO SCH (09:56)
[2017-08-10] MEDS: ENOXAPARIN 80 MG/0.8 ML SYRINGE SQ SCH ×2 (10:22→20:18)
[2017-08-10] MEDS ORDERED: WARFARIN 5 MG TABLET PO ONE (14:00)
[2017-08-10] MEDS: 0.9 % SODIUM CHLORIDE 1,000 ML IV SCH (16:19)
--- NOTE | 2017-08-10 17:33 | Internal Med Progress Note ---
Medical - PN: Subj Patient information: Note initiated : 08/10/17 at 5:30 pm Service Date, if different from initiated Date: [] Patient: Sukumar Burt 77 y/o M admitted on 08/03/17 for BRONCHOSCOPY/LUNG BIOPSY. Chief Complaint: [] Interval history: Aug 03 Patient is a 76-year-old male with a history of advanced COPD, hypercholesterolemia, BPH, recent tachycardia who presents to the ED with progressive pulmonary symptoms. Approximately 10 days ago, the patient started developing pulmonary symptoms coughing with sputum production, occasionally bloody. He presented to the ED here on her poor A6, was diagnosed with lingular pneumonia, treated with Ceftin and a 5 day course of prednisone. Since that time he slept better and felt good for the first 2 days, then has progressively declined. He continues to have cough. He continues to have significant pleuritic chest pain, worse with inspiration and with cough. It's on the left side of the chest over the lingular region. It's moderate to severe in intensity. It hurts for him to lay on that side. He follows up in Dr. Hayes's office today, where Ceftin was stopped and Levaquin was prescribed as well as another taper prednisone. He was also tachycardic, was recommended he present to the emergency department. He presents to the ED, where initially his pulse is 124 with bigeminy on EKG. He is continuing to cough, producing yellowish sputum which is occasionally bloody , though sometimes it's almost all blood. He's felt chilled, though he feels chilly often. He's had no fever. He's had no night sweats. No history of TB exposure. No recent travel. He's had no weight loss. Sputum is yellowish tinged. Repeat radiograph in the ED shows progressive left lingular infiltrate and consolidation. He is being admitted for further treatment of pneumonia, failed outpatient therapy. b 15 Feeling a bit stronger this morning. Has been seen by Dr. Wade. CT yesterday shows left hilar mass with partial bronchial obstruction, likely explaining his progressive pneumonia. 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 Plan is to treat with further antibiotics and strengthening prior to attempting bronchoscopy, likely Tuesday morning. Still with some cough, not much hemoptysis. Chest pain seems to be slowly improving. Feb 16 Stable on heparin infusion. Still occasional mild hemoptysis, but is not worsened on anticoagulation. Overnight last night was having runs of SVT/ atrial tachycardia up to the 140s, with subsequent pauses resumption of sinus rhythm and bigeminy. Seemed to improve later in the night, after his evening dose of metoprolol. Patient was asymptomatic during these. August 06 Remained stable. Occasional streaky hemoptysis. Chest pain is improved significantly. Appetite is pretty good. Still gets quite winded with exertion to the bathroom and back. Remains on a heparin infusion. Decreased amount of atrial arrhythmia. Occasional pauses remain. August 07 Slept very well after trazodone last night, feels rested. He had a bowel movement yesterday. Occasional dark bloody sputum. Otherwise tolerating heparin infusion. Occasional of sided chest pain, though significantly improved from admission. Appetite improved. Still quite winded with exertion. Tele stable, no runs of tachyarrhythmia. Aug 08 patient seen and examined, no acute overnight events, patient heparin drip was stopped last night, patient underwent bronchoscopy today with biopsy. Plan to monitor him post procedure and resume heparin GGT this afternoon. The patient has some shortness of breath and increased oxygen requirement after the bronchoscopy, he is wheezing bilaterally. Patient does have a history of severe COPD and has had recent bouts of steroid treatments. The patient otherwise denies any complaints. There is no nausea, no vomiting, no fever, no chills. Aug 09 patient seen and examined, noted that his respiratory status is slightly worse today compared to yesterday. He was started on IV steroids as well as DuoNeb's yesterday, but his respiratory condition did not improve significantly slightly worse today. He underwent a cht x-ray which showed worsening pneumonia bilaterally, normal prominent in the right upper lobe. The patient also has worsening pleural effusion on the left The patient admits to be having some shortness of breath. Denies any hemoptysis. Denies any fever, no chills, no headache, no nausea, no abdominal pain I reviewed with the patient that his breathing status is worsening now, andf that he consider using BiPAP. ABG was drawn which showed hypoxia on 5 L of oxygen. Patient was started on BiPAP treatment. He seems to be tolerating it well. Lasix 1 given. Patient is on heparin drip and has been tolerating this well I reviewed the patient's condition and changed status with the patient's as well as the daughter. aug 10 patient seen, examined, no acute overnight events. Tolerated BiPAP well. This morning, patient is off BiPAP . Not respiratory distress. Still has some shortness of breath but not as bad as yesterday. Exam shows improved wheezing Chest x-ray shows worsening infiltrates and possible ARDS like picture. Clinically, patient is much improved. 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 This was reviewed with the patient, his and the daughter Pertinent ROS: Denies headache, dizziness Denies chest pain, palpitations improving cough or shortness of breath Denies abdominal pain, nausea or vomiting. - Constitutional Vitals: Vital Signs Temp Pulse Resp BP Pulse Ox 98.9 F 71 20 125/60 96 08/10/17 15:34 08/10/17 15:34 08/10/17 15:34 08/10/17 15:34 08/10/17 15:34 Period Temp Pulse Resp BP Sys/Giang Pulse Ox Last 24 Hr 97.6 F-98.9 F 53-86 17-20 117-139/54-91 92-98 Intake and Output 08/10/17 08/10/17 08/10/17 05:59 13:59 21:59 Intake Total 240 / 240 890 / 890 Output Total 325 / 325 250 / 250 Balance -325 / -325 240 / 240 640 / 640 Intake & Output: Intake & Output 08/10/17 08/10/17 08/10/17 05:59 13:59 21:59 Intake Total 240 / 240 890 / 890 Output Total 325 / 325 250 / 250 Balance -325 / -325 240 / 240 640 / 640 Intake: IV 0 / 0 650 / 650 Vancomycin 1,500 mg In Sodium 500 / 500 Chloride 0.9% 500 ml @ 333.3 mls/hr IV Q24H [facility] Rx#: [id number] Oral 240 / 240 240 / 240 Output: Void Amount 325 / 325 250 / 250 Other: Meal Breakfast Percent of Meal Consumed 75% Exam: Constitutional; Afebrile, cooperative, alert, not in distress. Eyes- No icterus, , No periorbital swelling Ears- Ext ear normal, hearing normal to conversation. Neck- Midline trachea, supple Respiratory system: at entry diminished on the left base, bilateral expiratory wheezes improved from yesterday CVS- Rate rhythm regular, S1,S2 heard, no gallop, no rub. Abdomen- Soft nontender abdomen, no organomegaly, no tenderness, no guarding or rigidity, [employer]- AOOx3, moving all extremities, no gross focal deficit noted. Medical - PN: Obj Da - Labs CBC & Chem 7: 08/10/17 04:00 08/10/17 04:00 Labs: Abnormal Lab Results 08/10/17 08/10/17 08/10/17 04:00 04:00 04:00 WBC 19.9 H RBC 3.33 L Hgb 10.1 L Hct 30.0 L Gran % 92.6 H Lymph % (Auto) 2.8 L Gran # 18.4 H Lymph # (Auto) 0.6 L APTT 84 H Carbon Dioxide 21 L BUN Creatinine Glucose 182 H Calcium 8.1 L Phosphorus 2.1 L Total Protein 5.8 L Albumin 2.8 L Albumin/Globulin Ratio 0.9 L 08/09/17 08/09/17 08/09/17 17:41 11:05 04:40 WBC RBC Hgb Hct Gran % Lymph % (Auto) Gran # Lymph # (Auto) APTT 63 H 63 H 65 H Carbon Dioxide BUN Creatinine Glucose Calcium Phosphorus Total Protein Albumin Albumin/Globulin Ratio 08/09/17 08/09/17 08/08/17 03:35 03:35 23:55 WBC 15.3 H RBC 3.40 L Hgb 10.2 L Hct 30.4 L Gran % 92.4 H Lymph % (Auto) 2.9 L Gran # 14.1 H Lymph # (Auto) 0.4 L APTT 61 H Carbon Dioxide BUN 7 L Creatinine 0.6 L Glucose 201 H Calcium 7.9 L Phosphorus 2.0 L Total Protein 5.5 L Albumin 2.6 L Albumin/Globulin Ratio 0.9 L 08/08/17 08/08/17 04:05 04:05 WBC RBC 3.44 L Hgb 10.4 L Hct 30.5 L Gran % Lymph % (Auto) 12.5 L Gran # Lymph # (Auto) 1.2 L APTT Carbon Dioxide BUN 7 L Creatinine Glucose 115 H Calcium 7.6 L Phosphorus 2.1 L Total Protein 5.2 L Albumin 2.7 L Albumin/Globulin Ratio Meds: Medications Acetaminophen (Tylenol) 650 mg PO Q6HP PRN PRN Reason: PAIN/FEVER > 101 Last Admin: 08/04/17 23:25 Dose: 650 mg Hydrocodone Bitart/Acetaminophen ([place] 10/325mg) 1 tab PO Q4HP PRN PRN Reason: Pain Last Admin: 08/04/17 03:44 Dose: 1 tab Albuterol Sulfate (Ventolin) 2.5 mg NEB Q2HP PRN PRN Reason: Shortness Of Breath Last Admin: 08/08/17 09:21 Dose: 2.5 mg Albuterol Sulfate (Ventolin) 1 puff INH Q4HP PRN PRN Reason: Shortness Of Breath Last Admin: 08/09/17 20:36 Dose: 1 puff Albuterol/Ipratropium (Duoneb) 3 ml NEB Q4HRT [facility] Last Admin: 08/10/17 15:10 Dose: 3 ml Cefepime HCl (Maxipime) 2 gm IV Q8H [facility] Last Admin: 08/10/17 15:23 Dose: 2 gm Dutasteride (Avodart) 0.5 mg PO HS [facility] Last Admin: 08/09/17 20:33 Dose: 0.5 mg Enoxaparin Sodium (Lovenox) 80 mg SQ BID [facility] Last Admin: 08/10/17 10:22 Dose: 80 mg Levofloxacin (Levaquin) 750 mg in 150 mls @ 100 mls/hr IV DAILY [facility] Last Infusion: 08/10/17 16:20 Dose: Infused Sodium Chloride (Sodium Chloride 0.9%) 1,000 mls @ 25 mls/hr IV .Q24H [facility] Last Admin: 08/10/17 16:19 Dose: Not Given Sodium Chloride (Sodium Chloride 0.9%) 250 mls @ 1 mls/hr INTRATRACH .Q24H PRN PRN Reason: Bleeding Vancomycin HCl 1,500 mg/ (Sodium Chloride) 500 mls @ 333.3 mls/hr IV Q24H [facility] Last Infusion: 08/10/17 16:20 Dose: Infused Lorazepam (Ativan) 0.5 mg PO Q4HP PRN PRN Reason: ANXIETY/SEDATION Last Admin: 08/09/17 21:39 Dose: 0.5 mg Methylprednisolone Sodium Succinate (Solu-Medrol) 62.5 mg IV Q8 [facility] Last Admin: 08/10/17 15:23 Dose: 62.5 mg Metoprolol Succinate (Toprol Xl) 50 mg PO [facility] Last Admin: 08/09/17 20:33 Dose: 50 mg Omeprazole (Prilosec) 20 mg PO [facility] Last Admin: 08/09/17 20:33 Dose: 20 mg Ondansetron HCl (Zofran) 4 mg IV Q4HP PRN PRN Reason: Nausea And Vomiting Fluticasone Furoate [Arnuity Ellipta] 100 Mcg 1 dose INH [facility] Last Admin: 08/09/17 20:34 Dose: 1 dose Tiotropium Br/Olodaterol Hcl [ Stiolto Respimat In 1 dose INH [facility] Last Admin: 08/09/17 20:32 Dose: 1 dose Fluticasone Furoate [Arnuity Ellipta] 200 Mcg 1 dose INH [facility] Last Admin: 08/09/17 20:33 Dose: 1 dose Pred[facility]Pred[facility]one) [address] [facility] Last Admin: 08/10/17 09:56 Dose: Not Given Simvastatin (Zocor) 40 mg PO [facility] Last Admin: 08/09/17 20:33 Dose: 40 mg Terazosin HCl (Hytrin) 5 mg PO [facility] Last Admin: 08/09/17 20:33 Dose: 5 mg Trazodone HCl (Desyrel) 50 mg PO [facility] PRN PRN Reason: Insomnia Vancomycin HCl (Vancomycin Per Pharmacy) 1 order IV [facility] Warfarin Sodium (Coumadin Per Pharmacy) 1 order PO [facility] Medical - PN: A/P - Time Spent With Patient Total time spent is greater than 50% in coordination of care (as documented) at patient's floor/unit and/or counseling patient: - Narrative A/P Narrative: 76-year-old male with advanced COPD presents with ongoing pulmonary symptoms, cough, occasional hemoptysis, pleuritic chest pain and worsening infiltrate on chest x-ray. Pneumonia, HCAP now, worsening, . Postobstructive pneumonia, possible ARDS? Plan: today's date to vancomycin and cefepime. Continue same. Patient clinically is improving Left lung tumor. squamous cell cancer: follow-up with oncology as an outpatient Left atrial appendage thrombus: problem CT scan, DC heparin drip. Start Lovenox and warfarin COPD exacerbation-IV steroids, DuoNeb's antibiotics. Likely exacerbated due to pneumonia and recent bronchoscopy procedure Acute hypoxic respiratory failure-started on BiPAP, tolerating well. Patient is good tidal volumes, back on nasal cannula, keep BiPAP when necessary Tachycardia. Likely related to his pulmonary process. Continues with bigeminy , but no tachyarrhythmias, Plan: Continue metoprolol, continue tele. Gastroesophageal reflux disease. Stable. Plan: Continue home meds Urticaria. Patient takes evening antihistamine to prevent hives. Plan: Continue BPH with lower urinary tract symptoms. Stable on current regimen. Plan: Continue home regimen. Medical - PN: Qual - VTE Deep Vein Thrombosis/Pulmonary Embolism Present on Admission: No
[2017-08-10] MEDS: DUTASTERIDE 0.5 MG CAPSULE PO SCH (20:17)
[2017-08-10] MEDS: TIOTROPIUM BR INH SCH (20:17)
[2017-08-10] MEDS: OLODATEROL HCL INH SCH (20:17)
[2017-08-10] MEDS: LORazepam 0.5 MG TABLET PO PRN (20:17)
[2017-08-10] MEDS: FLUTICASONE FUROATE 200 MCG INH SCH (20:18)
[2017-08-10] MEDS: FLUTICASONE FUROATE 100 MCG INH SCH (20:18)
[2017-08-10] MEDS: METOPROLOL SUCCINATE 25 MG TAB.XL.24H PO SCH (20:18)
[2017-08-10] MEDS: SIMVASTATIN 40 MG TABLET PO SCH (20:23)
[2017-08-10] MEDS: TERAZOSIN 5 MG CAPSULE PO SCH (20:24)
[2017-08-10] MEDS: OMEPRAZOLE 20 MG CAPSULE PO SCH (20:24)
[2017-08-11] MEDS: IPRATROPIUM/ALBUTEROL 3 ML AMPUL.NEB NEB SCH ×6 (02:54→23:06)
[2017-08-11] MEDS: methylPREDNISolone SOD SUCC 125 MG/2 ML VIAL IV SCH ×3 (05:33→21:39)
[2017-08-11] MEDS: CEFEPIME 2 GM VIAL IV SCH ×3 (05:33→22:47)
[2017-08-11 05:47] LABS: ALT/SGPT 40 U/l (0-40); Albumin 2.7 gm/dL (3.2-5.2); Alkaline Phosphatase 60 U/L (39-117); Bilirubin,Direct < 0.2 mg/dL (0.0-0.3); Blood Urea Nitrogen 22 mg/dl (8-23); Gamma Glutamyl Transpeptidase 54 U/L (8-61); Uric Acid 4.3 mg/dL (2.5-8.0)
[2017-08-11 05:59] LABS: Basophils # (Auto) 0.3 K/mcL (0.0-0.3); Basophils % (Auto) 2.3 % (0.0-2.0); Eosinophils # (Auto) 0.1 K/mcL (0.0-0.7); Eosinophils % (Auto) 0.7 % (0.0-7.0); Granulocytes % (Auto) 93.4 % (38.0-78.0); Lymphocytes # (Auto) 0.5 K/mcL (1.5-4.8); Lymphocytes % (Auto) 3.2 % (15.5-49.0); Mean Cell Volume 88.1 fL (80.0-100.0); Mean Corpuscular HGB Conc 34.6 g/dL (31.0-36.0); Mean Corpuscular Hemoglobin 30.5 pg (26.0-34.0); Monocytes # (Auto) 0.1 K/mcL (0.1-0.9); Monocytes % (Auto) 0.4 % (1.0-12.0); Platelet Count 176 K/mcL (140-440); RBC 3.39 M/mcL (4.50-5.90); Red Cell Distribution Width 13.6 % (11.5-14.5)
--- NOTE | 2017-08-11 08:16 | XRay Report ---
HISTORY: Reason for Exam:pneumonia FINDINGS: The left lower lobe remains densely consolidated and there is a superimposed pleural effusion. There are moderate generalized alveolar infiltrates in both lungs. There has been significant improvement throughout the right lung and mild improvement in the left upper lobe since 08/10/17. The heart is obscured by the consolidation but may be enlarged. There is a tiny right-sided pleural effusion. IMPRESSION: Improving pneumonia Interpreted and Authenticated by: Alen Fields 08/11/17
[2017-08-11] MEDS: MAGNESIUM HYDROXIDE 30 ML ORAL.SUSP PO PRN (09:02)
[2017-08-11] MEDS: ENOXAPARIN 80 MG/0.8 ML SYRINGE SQ SCH ×2 (09:02→19:42)
[2017-08-11] MEDS: 0.9 % SODIUM CHLORIDE 10 ML SYRINGE IV SCH ×5 (10:14→22:47)
[2017-08-11] MEDS: LEVOFLOXACIN 750 MG/150 ML BAG IV SCH (10:15)
[2017-08-11] MEDS: VANCOMYCIN 1,500 MG in 0.9 % SODIUM CHLORIDE 500 ML IV SCH ×3 (10:39→21:35)
[2017-08-11] MEDS ORDERED: FUROSEMIDE 40 MG/4 ML VIAL IV ONE (10:51)
--- NOTE | 2017-08-11 13:43 | Internal Med Progress Note ---
Medical - PN: Subj Patient information: Note initiated : 08/11/17 at 1:40 pm Service Date, if different from initiated Date: [] Patient: Sukumar Burt 77 y/o M admitted on 08/03/17 for BRONCHOSCOPY/LUNG BIOPSY. Chief Complaint: [] Interval history: Aug 03 Patient is a 76-year-old male with a history of advanced COPD, hypercholesterolemia, BPH, recent tachycardia who presents to the ED with progressive pulmonary symptoms. Approximately 10 days ago, the patient started developing pulmonary symptoms coughing with sputum production, occasionally bloody. He presented to the ED here on her poor A6, was diagnosed with lingular pneumonia, treated with Ceftin and a 5 day course of prednisone. Since that time he slept better and felt good for the first 2 days, then has progressively declined. He continues to have cough. He continues to have significant pleuritic chest pain, worse with inspiration and with cough. It's on the left side of the chest over the lingular region. It's moderate to severe in intensity. It hurts for him to lay on that side. He follows up in Dr. Hayes's office today, where Ceftin was stopped and Levaquin was prescribed as well as another taper prednisone. He was also tachycardic, was recommended he present to the emergency department. He presents to the ED, where initially his pulse is 124 with bigeminy on EKG. He is continuing to cough, producing yellowish sputum which is occasionally bloody , though sometimes it's almost all blood. He's felt chilled, though he feels chilly often. He's had no fever. He's had no night sweats. No history of TB exposure. No recent travel. He's had no weight loss. Sputum is yellowish tinged. Repeat radiograph in the ED shows progressive left lingular infiltrate and consolidation. He is being admitted for further treatment of pneumonia, failed outpatient therapy. Feb 15 Feeling a bit stronger this morning. Has been seen by Dr. Wade. CT yesterday shows left hilar mass with partial bronchial obstruction, likely explaining his progressive pneumonia. 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 Plan is to treat with further antibiotics and strengthening prior to attempting bronchoscopy, likely Tuesday morning. Still with some cough, not much hemoptysis. Chest pain seems to be slowly improving. Feb 16 Stable on heparin infusion. Still occasional mild hemoptysis, but is not worsened on anticoagulation. Overnight last night was having runs of SVT/ atrial tachycardia up to the 140s, with subsequent pauses resumption of sinus rhythm and bigeminy. Seemed to improve later in the night, after his evening dose of metoprolol. Patient was asymptomatic during these. August 06 Remained stable. Occasional streaky hemoptysis. Chest pain is improved significantly. Appetite is pretty good. Still gets quite winded with exertion to the bathroom and back. Remains on a heparin infusion. Decreased amount of atrial arrhythmia. Occasional pauses remain. August 07 Slept very well after trazodone last night, feels rested. He had a bowel movement yesterday. Occasional dark bloody sputum. Otherwise tolerating heparin infusion. Occasional of sided chest pain, though significantly improved from admission. Appetite improved. Still quite winded with exertion. Tele stable, no runs of tachyarrhythmia. Aug 08 patient seen and examined, no acute overnight events, patient heparin drip was stopped last night, patient underwent bronchoscopy today with biopsy. Plan to monitor him post procedure and resume heparin GGT this afternoon. The patient has some shortness of breath and increased oxygen requirement after the bronchoscopy, he is wheezing bilaterally. Patient does have a history of severe COPD and has had recent bouts of steroid treatments. The patient otherwise denies any complaints. There is no nausea, no vomiting, no fever, no chills. Aug 09 patient seen and examined, noted that his respiratory status is slightly worse today compared to yesterday. He was started on IV steroids as well as DuoNeb's yesterday, but his respiratory condition did not improve significantly slightly worse today. He underwent a cht x-ray which showed worsening pneumonia bilaterally, normal prominent in the right upper lobe. The patient also has worsening pleural effusion on the left The patient admits to be having some shortness of breath. Denies any hemoptysis. Denies any fever, no chills, no headache, no nausea, no abdominal pain I reviewed with the patient that his breathing status is worsening now, andf that he consider using BiPAP. ABG was drawn which showed hypoxia on 5 L of oxygen. Patient was started on BiPAP treatment. He seems to be tolerating it well. Lasix 1 given. Patient is on heparin drip and has been tolerating this well I reviewed the patient's condition and changed status with the patient's as well as the daughter. aug 10 patient seen, examined, no acute overnight events. Tolerated BiPAP well. This morning, patient is off BiPAP . Not respiratory distress. Still has some shortness of breath but not as bad as yesterday. Exam shows improved wheezing Chest x-ray shows worsening infiltrates and possible ARDS like picture. Clinically, patient is much improved. 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 This was reviewed with the patient, his and the daughter Aug 11 Patient seen, examined, no acute overnight events, breathing well, did not need BiPAP since yesterday. The patient still has wheezing which is improved from yesterday. Chest x-ray today shows improved pneumonia, however, still has left basilar consolidation and effusion. The patient is very fatigued and very tired even walking from the bed to the door gets him extremely short of breath. Pertinent ROS: Denies headache, dizziness Denies chest pain, palpitations Shortness of breath present. Intermittent cough present. Denies abdominal pain, nausea or vomiting. - Constitutional Vitals: Vital Signs Temp Pulse Resp BP Pulse Ox 98.9 F 57 L 18 128/58 96 08/11/17 11:27 08/11/17 11:46 08/11/17 11:46 08/11/17 11:27 08/11/17 11:27 Period Temp Pulse Resp BP Sys/Giang Pulse Ox Last 24 Hr 97.2 F-98.9 F 57-87 18-20 97-147/51-70 93-99 Intake and Output 08/10/17 08/11/17 08/11/17 21:59 05:59 13:59 Intake Total 1610 / 1610 406 / 406 Output Total 500 / 500 700 / 700 1325 / 1325 Balance 1110 / 1110 -700 / -700 -919 / -919 Weight 169 lb Intake & Output: Intake & Output 08/10/17 08/11/17 08/11/17 21:59 05:59 13:59 Intake Total 1610 / 1610 406 / 406 Output Total 500 / 500 700 / 700 1325 / 1325 Balance 1110 / 1110 -700 / -700 -919 / -919 Weight 169 lb Intake: IV 650 / 650 6 / 6 Vancomycin 1,500 mg In Sodium 500 / 500 6 / 6 Chloride 0.9% 500 ml @ 333.3 mls/hr IV Q12H [facility] Rx#: [id number] Oral 960 / 960 400 / 400 Output: Void Amount 500 / 500 700 / 700 1325 / 1325 Other: Meal Dinner Breakfast Percent of Meal Consumed 75% 75% Feeding Ability Assist with Tray Set Up Independent # Voids 1 Exam: Constitutional; Afebrile, cooperative, alert, not in distress. Eyes- No icterus, , No periorbital swelling Ears- Ext ear normal, hearing normal to conversation. Neck- Midline trachea, supple Respiratory system: Air Entry absent at the left wrist, bilateral expiratory wheezes, mild basilar crackles. CVS- Rate rhythm regular, S1,S2 heard, no gallop, no rub. Abdomen- Soft nontender abdomen, no organomegaly, no tenderness, no guarding or rigidity, UND[employer]WRITING A[employer]LYST- AOOx3, moving all extremities, no gross focal deficit noted. Medical - PN: Obj Da - Labs CBC & Chem 7: 08/11/17 04:05 08/11/17 04:05 Labs: Abnormal Lab Results 08/11/17 08/11/17 08/11/17 04:05 04:05 04:05 WBC 15.0 H RBC 3.39 L Hgb 10.3 L Hct 29.9 L Gran % 93.4 H Lymph % (Auto) 3.2 L Castro % (Auto) 0.4 L Baso % (Auto) 2.3 H Gran # 14.0 H Lymph # (Auto) 0.5 L PT 15.1 H INR 1.2 H APTT Carbon Dioxide 21 L BUN Creatinine Glucose 177 H Calcium 8.1 L Phosphorus 2.4 L Total Protein 5.4 L Albumin 2.7 L Albumin/Globulin Ratio 08/10/17 08/10/17 08/10/17 04:00 04:00 04:00 WBC 19.9 H RBC 3.33 L Hgb 10.1 L Hct 30.0 L Gran % 92.6 H Lymph % (Auto) 2.8 L Castro % (Auto) Baso % (Auto) Gran # 18.4 H Lymph # (Auto) 0.6 L PT INR APTT 84 H Carbon Dioxide 21 L BUN Creatinine Glucose 182 H Calcium 8.1 L Phosphorus 2.1 L Total Protein 5.8 L Albumin 2.8 L Albumin/Globulin Ratio 0.9 L 08/09/17 08/09/17 08/09/17 17:41 11:05 04:40 WBC RBC Hgb Hct Gran % Lymph % (Auto) Castro % (Auto) Baso % (Auto) Gran # Lymph # (Auto) PT INR APTT 63 H 63 H 65 H Carbon Dioxide BUN Creatinine Glucose Calcium Phosphorus Total Protein Albumin Albumin/Globulin Ratio 08/09/17 08/09/17 08/08/17 03:35 03:35 23:55 WBC 15.3 H RBC 3.40 L Hgb 10.2 L Hct 30.4 L Gran % 92.4 H Lymph % (Auto) 2.9 L Castro % (Auto) Baso % (Auto) Gran # 14.1 H Lymph # (Auto) 0.4 L PT INR APTT 61 H Carbon Dioxide BUN 7 L Creatinine 0.6 L Glucose 201 H Calcium 7.9 L Phosphorus 2.0 L Total Protein 5.5 L Albumin 2.6 L Albumin/Globulin Ratio 0.9 L Meds: Medications Acetaminophen (Tylenol) 650 mg PO Q6HP PRN PRN Reason: PAIN/FEVER > 101 Last Admin: 08/04/17 23:25 Dose: 650 mg Hydrocodone Bitart/Acetaminophen ([place] 10/325mg) 1 tab PO Q4HP PRN PRN Reason: Pain Last Admin: 08/04/17 03:44 Dose: 1 tab Albuterol Sulfate (Ventolin) 2.5 mg NEB Q2HP PRN PRN Reason: Shortness Of Breath Last Admin: 08/08/17 09:21 Dose: 2.5 mg Albuterol Sulfate (Ventolin) 1 puff INH Q4HP PRN PRN Reason: Shortness Of Breath Last Admin: 08/09/17 20:36 Dose: 1 puff Albuterol/Ipratropium (Duoneb) 3 ml NEB Q4HRT FLAKO Last Admin: 08/11/17 11:43 Dose: 3 ml Cefepime HCl (Maxipime) 2 gm IV Q8H FLAKO Last Admin: 08/11/17 05:33 Dose: 2 gm Dutasteride (Avodart) 0.5 mg PO HS [facility] Last Admin: 08/10/17 20:17 Dose: 0.5 mg Enoxaparin Sodium (Lovenox) 80 mg SQ BID [facility] Last Admin: 08/11/17 09:02 Dose: 80 mg Levofloxacin (Levaquin) 750 mg in 150 mls @ 100 mls/hr IV DAILY [facility] Last Admin: 08/11/17 10:15 Dose: 100 mls/hr Sodium Chloride (Sodium Chloride 0.9%) 1,000 mls @ 25 mls/hr IV .Q24H [facility] Last Admin: 08/10/17 16:19 Dose: Not Given Sodium Chloride (Sodium Chloride 0.9%) 250 mls @ 1 mls/hr INTRATRACH .Q24H PRN PRN Reason: Bleeding Vancomycin HCl 1,500 mg/ (Sodium Chloride) 500 mls @ 333.3 mls/hr IV Q12H [facility] Last Infusion: 08/11/17 11:03 Dose: 300 mls/hr Lorazepam (Ativan) 0.5 mg PO Q4HP PRN PRN Reason: ANXIETY/SEDATION Last Admin: 08/10/17 20:17 Dose: 0.5 mg Magnesium Hydroxide (Milk Of Magnesia) 30 ml PO DAILYP PRN PRN Reason: Constipation Last Admin: 08/11/17 09:02 Dose: 30 ml Methylprednisolone Sodium Succinate (Solu-Medrol) 62.5 mg IV Q8 [facility] Last Admin: 08/11/17 05:33 Dose: 62.5 mg Metoprolol Succinate (Toprol Xl) 50 mg PO [facility] Last Admin: 08/10/17 20:18 Dose: 50 mg Omeprazole (Prilosec) 20 mg PO [facility] Last Admin: 08/10/17 20:24 Dose: 20 mg Ondansetron HCl (Zofran) 4 mg IV Q4HP PRN PRN Reason: Nausea And Vomiting Fluticasone Furoate [Arnuity Ellipta] 100 Mcg 1 dose INH [facility] Last Admin: 08/10/17 20:18 Dose: 1 dose Tiotropium Br/Olodaterol Hcl [ Stiolto Respimat In 1 dose INH [facility] Last Admin: 08/10/17 20:17 Dose: 1 dose Fluticasone Furoate [Arnuity Ellipta] 200 Mcg 1 dose INH [facility] Last Admin: 08/10/17 20:18 Dose: 1 dose Simvastatin (Zocor) 40 mg PO [facility] Last Admin: 08/10/17 20:23 Dose: 40 mg Terazosin HCl (Hytrin) 5 mg PO [facility] Last Admin: 08/10/17 20:24 Dose: 5 mg Trazodone HCl (Desyrel) 50 mg PO [facility] PRN PRN Reason: Insomnia Vancomycin HCl (Vancomycin Per Pharmacy) 1 order IV UD [facility] Warfarin Sodium (Coumadin Per Pharmacy) 1 order PO UD [facility] Warfarin Sodium (Coumadin) 5 mg PO DAILY@1400 [facility] Medical - PN: A/P - Time Spent With Patient Total time spent is greater than 50% in coordination of care (as documented) at patient's floor/unit and/or counseling patient: - Narrative A/P Narrative: 76-year-old male with advanced COPD presents with ongoing pulmonary symptoms, cough, occasional hemoptysis, pleuritic chest pain and worsening infiltrate on chest x-ray. Pneumonia, HCAP now, improving . Postobstructive pneumonia, Plan: today's date to vancomycin and cefepime. Continue same. Patient clinically is improving, leucocytosis improved Left lung tumor. squamous cell cancer: follow-up with oncology as an outpatient Left atrial appendage thrombus: problem CT scan, DC heparin drip. Started on Lovenox and warfarin COPD exacerbation-IV steroids, DuoNeb's antibiotics. Likely exacerbated due to pneumonia and recent bronchoscopy procedure Acute hypoxic respiratory failure-son nasal canula oxygen 3 L, was on bipap, now only in room for prn support Tachycardia. Likely related to his pulmonary process. Continues with bigeminy , but no tachyarrhythmias, Plan: Continue metoprolol, continue tele. Gastroesophageal reflux disease. Stable. Plan: Continue home meds Urticaria. Patient takes evening antihistamine to prevent hives. Plan: Continue BPH with lower urinary tract symptoms. Stable on current regimen. Plan: Continue home regimen. Medical - PN: Qual - VTE Deep Vein Thrombosis/Pulmonary Embolism Present on Admission: No
[2017-08-11] MEDS ORDERED: WARFARIN 5 MG TABLET PO SCH (14:00)
[2017-08-11] MEDS: DUTASTERIDE 0.5 MG CAPSULE PO SCH (19:41)
[2017-08-11] MEDS: FLUTICASONE FUROATE 100 MCG INH SCH (19:41)
[2017-08-11] MEDS: FLUTICASONE FUROATE 200 MCG INH SCH (19:41)
[2017-08-11] MEDS: SIMVASTATIN 40 MG TABLET PO SCH (19:42)
[2017-08-11] MEDS: METOPROLOL SUCCINATE 25 MG TAB.XL.24H PO SCH (19:42)
[2017-08-11] MEDS: HYDROcodone/APAP 10/325MG TABLET PO PRN (19:42)
[2017-08-11] MEDS: OMEPRAZOLE 20 MG CAPSULE PO SCH (19:42)
[2017-08-11] MEDS: 0.9 % SODIUM CHLORIDE 1,000 ML IV SCH (19:42)
[2017-08-11] MEDS: LORazepam 0.5 MG TABLET PO PRN (19:42)
[2017-08-11] MEDS: TERAZOSIN 5 MG CAPSULE PO SCH (19:42)
[2017-08-11] MEDS ORDERED: TIOTROPIUM BR INH SCH (21:00)
[2017-08-11] MEDS ORDERED: OLODATEROL HCL INH SCH (21:00)
[2017-08-12] MEDS: IPRATROPIUM/ALBUTEROL 3 ML AMPUL.NEB NEB SCH ×6 (03:29→22:24)
[2017-08-12 06:02] LABS: ALT/SGPT 53 U/l (0-40); Albumin 2.9 gm/dL (3.2-5.2); Alkaline Phosphatase 80 U/L (39-117); Bilirubin,Direct < 0.2 mg/dL (0.0-0.3); Blood Urea Nitrogen 27 mg/dl (8-23); Gamma Glutamyl Transpeptidase 62 U/L (8-61)
[2017-08-12 06:05] LABS: Basophils # (Auto) 0.1 K/mcL (0.0-0.3); Basophils % (Auto) 0.9 % (0.0-2.0); Eosinophils # (Auto) 0.1 K/mcL (0.0-0.7); Eosinophils % (Auto) 0.5 % (0.0-7.0); Granulocytes % (Auto) 93.8 % (38.0-78.0); Lymphocytes # (Auto) 0.5 K/mcL (1.5-4.8); Lymphocytes % (Auto) 3.5 % (15.5-49.0); Mean Cell Volume 88.2 fL (80.0-100.0); Mean Corpuscular HGB Conc 33.8 g/dL (31.0-36.0); Mean Corpuscular Hemoglobin 29.8 pg (26.0-34.0); Monocytes # (Auto) 0.2 K/mcL (0.1-0.9); Monocytes % (Auto) 1.3 % (1.0-12.0); Platelet Count 205 K/mcL (140-440); RBC 3.46 M/mcL (4.50-5.90); Red Cell Distribution Width 13.8 % (11.5-14.5)
[2017-08-12] MEDS: CEFEPIME 2 GM VIAL IV SCH ×3 (06:05→22:07)
[2017-08-12] MEDS: 0.9 % SODIUM CHLORIDE 10 ML SYRINGE IV SCH ×7 (06:06→21:42)
[2017-08-12] MEDS: methylPREDNISolone SOD SUCC 125 MG/2 ML VIAL IV SCH ×3 (06:06→21:42)
[2017-08-12] MEDS: ENOXAPARIN 80 MG/0.8 ML SYRINGE SQ SCH ×2 (08:06→21:42)
[2017-08-12] MEDS: MAGNESIUM HYDROXIDE 30 ML ORAL.SUSP PO PRN (08:07)
--- NOTE | 2017-08-12 08:20 | XRay Report ---
HISTORY: Reason for Exam:pleural effusion. FINDINGS: Patient still has a moderately large left-sided pleural effusion with associated dense consolidation of the left lower lobe and inferior portion of the lingula. Small right-sided pleural effusion is present. This is slightly increased in volume since 08/11/17. There are mild generalized infiltrates throughout the right lung and left upper lobe. The heart is obscured. Except for the small increase in volume of the right-sided pleural effusion there has been no significant change since 08/11/17. IMPRESSION: Stable bilateral pneumonia and left lower lobe atelectasis Stable left-sided pleural effusion with a very small but enlarging right-sided effusion Interpreted and Authenticated by: Alen Fields 08/12/17
[2017-08-12] MEDS ORDERED: VANCOMYCIN 1,000 MG in 0.9 % SODIUM CHLORIDE 250 ML IV SCH (09:00)
[2017-08-12] MEDS ORDERED: LEVOFLOXACIN 750 MG/150 ML BAG IV SCH (09:00)
[2017-08-12] MEDS ORDERED: FUROSEMIDE 40 MG/4 ML VIAL IV ONE ×2 (09:04→17:00)
[2017-08-12] MEDS: VANCOMYCIN 1,500 MG in 0.9 % SODIUM CHLORIDE 500 ML IV SCH (10:21)
[2017-08-12] MEDS ORDERED: WARFARIN 7.5 MG TABLET PO ONE (14:00)
[2017-08-12] MEDS: 0.9 % SODIUM CHLORIDE 1,000 ML IV SCH (16:39)
--- NOTE | 2017-08-12 17:23 | Internal Med Progress Note ---
Medical - PN: Subj Patient information: Note initiated : 08/12/17 at 5:19 pm Service Date, if different from initiated Date: [] Patient: Sukumar Burt 77 y/o M admitted on 08/03/17 for BRONCHOSCOPY/LUNG BIOPSY. Chief Complaint: [] Interval history: Aug 03 Patient is a 76-year-old male with a history of advanced COPD, hypercholesterolemia, BPH, recent tachycardia who presents to the ED with progressive pulmonary symptoms. Approximately 10 days ago, the patient started developing pulmonary symptoms coughing with sputum production, occasionally bloody. He presented to the ED here on her poor A6, was diagnosed with lingular pneumonia, treated with Ceftin and a 5 day course of prednisone. Since that time he slept better and felt good for the first 2 days, then has progressively declined. He continues to have cough. He continues to have significant pleuritic chest pain, worse with inspiration and with cough. It's on the left side of the chest over the lingular region. It's moderate to severe in intensity. It hurts for him to lay on that side. He follows up in Dr. Hayes's office today, where Ceftin was stopped and Levaquin was prescribed as well as another taper prednisone. He was also tachycardic, was recommended he present to the emergency department. He presents to the ED, where initially his pulse is 124 with bigeminy on EKG. He is continuing to cough, producing yellowish sputum which is occasionally bloody , though sometimes it's almost all blood. He's felt chilled, though he feels chilly often. He's had no fever. He's had no night sweats. No history of TB exposure. No recent travel. He's had no weight loss. Sputum is yellowish tinged. Repeat radiograph in the ED shows progressive left lingular infiltrate and consolidation. He is being admitted for further treatment of pneumonia, failed outpatient therapy. Feb 15 Feeling a bit stronger this morning. Has been seen by Dr. Wade. CT yesterday shows left hilar mass with partial bronchial obstruction, likely explaining his progressive pneumonia. 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 Plan is to treat with further antibiotics and strengthening prior to attempting bronchoscopy, likely Tuesday morning. Still with some cough, not much hemoptysis. Chest pain seems to be slowly improving. Feb 16 Stable on heparin infusion. Still occasional mild hemoptysis, but is not worsened on anticoagulation. Overnight last night was having runs of SVT/ atrial tachycardia up to the 140s, with subsequent pauses resumption of sinus rhythm and bigeminy. Seemed to improve later in the night, after his evening dose of metoprolol. Patient was asymptomatic during these. August 06 Remained stable. Occasional streaky hemoptysis. Chest pain is improved significantly. Appetite is pretty good. Still gets quite winded with exertion to the bathroom and back. Remains on a heparin infusion. Decreased amount of atrial arrhythmia. Occasional pauses remain. August 07 Slept very well after trazodone last night, feels rested. He had a bowel movement yesterday. Occasional dark bloody sputum. Otherwise tolerating heparin infusion. Occasional of sided chest pain, though significantly improved from admission. Appetite improved. Still quite winded with exertion. Tele stable, no runs of tachyarrhythmia. Aug 08 patient seen and examined, no acute overnight events, patient heparin drip was stopped last night, patient underwent bronchoscopy today with biopsy. Plan to monitor him post procedure and resume heparin GGT this afternoon. The patient has some shortness of breath and increased oxygen requirement after the bronchoscopy, he is wheezing bilaterally. Patient does have a history of severe COPD and has had recent bouts of steroid treatments. The patient otherwise denies any complaints. There is no nausea, no vomiting, no fever, no chills. Aug 09 patient seen and examined, noted that his respiratory status is slightly worse today compared to yesterday. He was started on IV steroids as well as DuoNeb's yesterday, but his respiratory condition did not improve significantly slightly worse today. He underwent a cht x-ray which showed worsening pneumonia bilaterally, normal prominent in the right upper lobe. The patient also has worsening pleural effusion on the left The patient admits to be having some shortness of breath. Denies any hemoptysis. Denies any fever, no chills, no headache, no nausea, no abdominal pain I reviewed with the patient that his breathing status is worsening now, andf that he consider using BiPAP. ABG was drawn which showed hypoxia on 5 L of oxygen. Patient was started on BiPAP treatment. He seems to be tolerating it well. Lasix 1 given. Patient is on heparin drip and has been tolerating this well I reviewed the patient's condition and changed status with the patient's as well as the daughter. aug 10 patient seen, examined, no acute overnight events. Tolerated BiPAP well. This morning, patient is off BiPAP . Not respiratory distress. Still has some shortness of breath but not as bad as yesterday. Exam shows improved wheezing Chest x-ray shows worsening infiltrates and possible ARDS like picture. Clinically, patient is much improved. 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 This was reviewed with the patient, his and the daughter Aug 11 Patient seen, examined, no acute overnight events, breathing well, did not need BiPAP since yesterday. The patient still has wheezing which is improved from yesterday. Chest x-ray today shows improved pneumonia, however, still has left basilar consolidation and effusion. The patient is very fatigued and very tired even walking from the bed to the door gets him extremely short of breath. Aug 12 patient seen and examined, no acute overnight events, did not give BiPAP overnight. Patient subjectively feels better after use of Lasix. Chest x-ray shows effusion on the left and some mild effusion on the right but overall clinically patient appears better. Repeat doses of IV Lasix today and see how he does. Okay to transfer to [facility] status Pertinent ROS: Denies headache, dizziness Denies chest pain, palpitations improving cough or shortness of breath Denies abdominal pain, nausea or vomiting. - Constitutional Vitals: Vital Signs Temp Pulse Resp BP Pulse Ox 98.6 F 80 20 142/67 94 08/12/17 15:18 08/12/17 15:18 08/12/17 15:18 08/12/17 15:18 08/12/17 15:18 Period Temp Pulse Resp BP Sys/Giang Pulse Ox Last 24 Hr 97.7 F-99.2 F 65-88 12-22 127-144/51-84 92-99 Intake and Output 08/12/17 08/12/17 08/12/17 05:59 13:59 21:59 Intake Total 600 / 600 640 / 640 Output Total 1600 / 1600 450 / 450 Balance 600 / 600 -960 / -960 -450 / -450 Weight 170 lb 14.4 oz Patient Weight 08/13/17 05:59 Weight 170 lb 14.4 oz Intake & Output: Intake & Output 08/12/17 08/12/17 08/12/17 05:59 13:59 21:59 Intake Total 600 / 600 640 / 640 Output Total 1600 / 1600 450 / 450 Balance 600 / 600 -960 / -960 -450 / -450 Weight 170 lb 14.4 oz Intake: IV 400 / 400 Vancomycin 1,000 mg In Sodium 250 / 250 Chloride 0.9% 250 ml @ 250 mls/ hr IV Q12H [facility] Rx#:[id number] Oral 600 / 600 240 / 240 Output: Void Amount 1600 / 1600 450 / 450 Other: Meal Lunch Percent of Meal Consumed Refused Feeding Ability Independent # Voids 1 1 Exam: Constitutional; Afebrile, cooperative, alert, not in distress. Eyes- No icterus, , No periorbital swelling Ears- Ext ear normal, hearing normal to conversation. Neck- Midline trachea, supple Respiratory system: neck is evident from the left base, mild crackles inspiratory on the right base, improved air entry, still has bilateral expiratory wheeze improved from yesterday CVS- Rate rhythm regular, S1,S2 heard, no gallop, no rub. Abdomen- Soft nontender abdomen, no organomegaly, no tenderness, no guarding or rigidity, [employer]- AOOx3, moving all extremities, no gross focal deficit noted. skin: lower back left buttock region, zoster rash, no e/o secondary bacterial infection. Medical - PN: Obj Da - Labs CBC & Chem 7: 08/12/17 03:35 08/12/17 03:35 Labs: Abnormal Lab Results 08/12/17 08/12/17 08/12/17 03:35 03:35 03:35 WBC 13.0 H RBC 3.46 L Hgb 10.3 L Hct 30.5 L Gran % 93.8 H Lymph % (Auto) 3.5 L [place] % (Auto) Baso % (Auto) Gran # 12.1 H Lymph # (Auto) 0.5 L PT 16.1 H INR 1.3 H APTT Carbon Dioxide BUN 27 H Glucose 197 H Calcium 8.1 L Phosphorus 1.9 L GGT 62 H ALT 53 H Lactate Dehydrogenase 273 H Total Protein 5.7 L Albumin 2.9 L Albumin/Globulin Ratio 08/11/17 08/11/17 08/11/17 04:05 04:05 04:05 WBC 15.0 H RBC 3.39 L Hgb 10.3 L Hct 29.9 L Gran % 93.4 H Lymph % (Auto) 3.2 L [place] % (Auto) 0.4 L Baso % (Auto) 2.3 H Gran # 14.0 H Lymph # (Auto) 0.5 L PT 15.1 H INR 1.2 H APTT Carbon Dioxide 21 L BUN Glucose 177 H Calcium 8.1 L Phosphorus 2.4 L GGT ALT Lactate Dehydrogenase Total Protein 5.4 L Albumin 2.7 L Albumin/Globulin Ratio 08/10/17 08/10/17 08/10/17 04:00 04:00 04:00 WBC 19.9 H RBC 3.33 L Hgb 10.1 L Hct 30.0 L Gran % 92.6 H Lymph % (Auto) 2.8 L [place] % (Auto) Baso % (Auto) Gran # 18.4 H Lymph # (Auto) 0.6 L PT INR APTT 84 H Carbon Dioxide 21 L BUN Glucose 182 H Calcium 8.1 L Phosphorus 2.1 L GGT ALT Lactate Dehydrogenase Total Protein 5.8 L Albumin 2.8 L Albumin/Globulin Ratio 0.9 L 08/09/17 17:41 WBC RBC Hgb Hct Gran % Lymph % (Auto) [place] % (Auto) Baso % (Auto) Gran # Lymph # (Auto) PT INR APTT 63 H Carbon Dioxide BUN Glucose Calcium Phosphorus GGT ALT Lactate Dehydrogenase Total Protein Albumin Albumin/Globulin Ratio Meds: Medications Acetaminophen (Tylenol) 650 mg PO Q6HP PRN PRN Reason: PAIN/FEVER > 101 Last Admin: 08/04/17 23:25 Dose: 650 mg Hydrocodone Bitart/Acetaminophen ([place] 10/325mg) 1 tab PO Q4HP PRN PRN Reason: Pain Last Admin: 08/11/17 19:42 Dose: 1 tab Albuterol Sulfate (Ventolin) 2.5 mg NEB Q2HP PRN PRN Reason: Shortness Of Breath Last Admin: 08/08/17 09:21 Dose: 2.5 mg Albuterol Sulfate (Ventolin) 1 puff INH Q4HP PRN PRN Reason: Shortness Of Breath Last Admin: 08/09/17 20:36 Dose: 1 puff Albuterol/Ipratropium (Duoneb) 3 ml NEB Q4HRT [facility]LAKO Last Admin: 08/12/17 15:44 Dose: Not Given Cefepime HCl (Maxipime) 2 gm IV Q8H [facility] Last Admin: 08/12/17 14:39 Dose: 2 gm Dutasteride (Avodart) 0.[address] [facility] Last Admin: 08/11/17 19:41 Dose: 0.5 mg Enoxaparin Sodium (Lovenox) 80 mg SQ BID [facility] Last Admin: 08/12/17 08:06 Dose: 80 mg Sodium Chloride (Sodium Chloride 0.9%) 1,000 mls @ 25 mls/hr IV .Q24H [facility] Last Admin: 08/12/17 16:39 Dose: Not Given Sodium Chloride (Sodium Chloride 0.9%) 250 mls @ 1 mls/hr INTRATRACH .Q24H PRN PRN Reason: Bleeding Levofloxacin (Levaquin) 750 mg in 150 mls @ 100 mls/hr IV Q24H [facility] Last Infusion: 08/12/17 09:54 Dose: Infused Vancomycin HCl 1,000 mg/ (Sodium Chloride) 250 mls @ 250 mls/hr IV Q12H [facility] Last Infusion: 08/12/17 11:05 Dose: Infused Lorazepam (Ativan) 0.5 mg PO Q4HP PRN PRN Reason: ANXIETY/SEDATION Last Admin: 08/11/17 19:42 Dose: 0.5 mg Magnesium Hydroxide (Milk Of Magnesia) 30 ml PO DAILYP PRN PRN Reason: Constipation Last Admin: 08/12/17 08:07 Dose: 30 ml Methylprednisolone Sodium Succinate (Solu-Medrol) 62.5 mg IV Q8 [facility] Last Admin: 08/12/17 14:39 Dose: 62.5 mg Metoprolol Succinate (Toprol Xl) [address] [facility] Last Admin: 08/11/17 19:42 Dose: 50 mg Omeprazole (Prilosec) [address] [facility] Last Admin: 08/11/17 19:42 Dose: 20 mg Ondansetron HCl (Zofran) 4 mg IV Q4HP PRN PRN Reason: Nausea And Vomiting Fluticasone Furoate [Arnuity Ellipta] 100 [address] [facility] Last Admin: 08/11/17 19:41 Dose: 1 dose Fluticasone Furoate [Arnuity Ellipta] 200 Mcg [address] [facility] Last Admin: 08/11/17 19:41 Dose: 1 dose Tiotropium Br/Olodaterol Hcl [ Stiolto Respimat In [address] [facility] Last Admin: 08/11/17 19:41 Dose: 2 dose Simvastatin (Zocor) [address] [facility] Last Admin: 08/11/17 19:42 Dose: 40 mg Sodium Chloride (Saline Flush) 10 ml IV Q8 [facility] Last Admin: 08/12/17 16:37 Dose: 10 ml Terazosin HCl (Hytrin) [address] [facility] Last Admin: 08/11/17 19:42 Dose: 5 mg Trazodone HCl (Desyrel) 50 mg PO [facility] PRN PRN Reason: Insomnia Vancomycin HCl (Vancomycin Per Pharmacy) 1 [place] [facility] [place] Sodium (Coumadin Per Pharmacy) 1 order PO [facility] [place] - PN: A/P - Time Spent With Patient Total time spent is greater than 50% in coordination of care (as documented) at patient's floor/unit and/or counseling patient: - Narrative A/P Narrative: 76-year-old male with advanced COPD presents with ongoing pulmonary symptoms, cough, occasional hemoptysis, pleuritic chest pain and worsening infiltrate on chest x-ray. Pneumonia, HCAP now, improving . Postobstructive pneumonia, Plan: On vancomycin and cefepime. Continue same. Patient clinically is improving, leucocytosis improved Left lung tumor. squamous cell cancer: follow-up with oncology as an outpatient Left atrial appendage thrombus: problem CT scan, DC heparin drip. Started on Lovenox and warfarin, no e/o bleed COPD exacerbation-IV steroids, DuoNeb's antibiotics. Likely exacerbated due to pneumonia and recent bronchoscopy procedure, change to oral steroid tomorrow if shows continued improvement. Left pleural effusion: likely due to malignancy, IV lasix now to see if we can reduce this, if not and patient is asymptomatic, will not tap. If patient remains symptomatic, will consider draining the effusion. Herpes zoster: start on valtrex for 1 week, 1gm TID. Acute hypoxic respiratory failure-son nasal canula oxygen 3 L, was on bipap, now doing better, IV lasix helping. Tachycardia. Likely related to his pulmonary process. Continues with bigeminy , but no tachyarrhythmias, Plan: Continue metoprolol, stable. Gastroesophageal reflux disease. Stable. Plan: Continue home meds Urticaria. Patient takes evening antihistamine to prevent hives. Plan: Continue BPH with lower urinary tract symptoms. Stable on current regimen. Plan: Continue home regimen. xfer to med surg status. Medical - PN: Qual - VTE Deep Vein Thrombosis/Pulmonary Embolism Present on Admission: No
[2017-08-12] MEDS ORDERED: VANCOMYCIN PER PHARMACY IV SCH (17:35)
[2017-08-12] MEDS ORDERED: MAGNESIUM HYDROXIDE 30 ML ORAL.SUSP PO PRN (17:35)
[2017-08-12] MEDS ORDERED: ONDANSETRON 4 MG/2 ML VIAL IV PRN (17:35)
[2017-08-12] MEDS ORDERED: 0.9 % SODIUM CHLORIDE 1,000 ML IV SCH (17:35)
[2017-08-12] MEDS ORDERED: traZODone HCL 50 MG TABLET PO PRN (17:35)
[2017-08-12] MEDS ORDERED: LORazepam 0.5 MG TABLET PO PRN (17:35)
[2017-08-12] MEDS ORDERED: ALBUTEROL SULFATE 2.5 MG/3 ML NEBULIZER NEB PRN (17:35)
[2017-08-12] MEDS ORDERED: 0.9 % SODIUM CHLORIDE 250 ML INTRATRACH PRN (17:35)
[2017-08-12] MEDS ORDERED: ACETAMINOPHEN 325 MG TABLET PO PRN (17:35)
[2017-08-12] MEDS ORDERED: HYDROcodone/APAP 10/325MG TABLET PO PRN (17:35)
[2017-08-12] MEDS ORDERED: IPRATROPIUM/ALBUTEROL 3 ML AMPUL.NEB NEB ONE (19:01)
[2017-08-12] MEDS: DUTASTERIDE 0.5 MG CAPSULE PO SCH (21:37)
[2017-08-12] MEDS: METOPROLOL SUCCINATE 25 MG TAB.XL.24H PO SCH (21:39)
[2017-08-12] MEDS: OMEPRAZOLE 20 MG CAPSULE PO SCH (21:39)
[2017-08-12] MEDS: TERAZOSIN 5 MG CAPSULE PO SCH (21:39)
[2017-08-12] MEDS: SIMVASTATIN 40 MG TABLET PO SCH (21:39)
[2017-08-12] MEDS: VANCOMYCIN 1,000 MG in 0.9 % SODIUM CHLORIDE 250 ML IV SCH (21:43)
[2017-08-12] MEDS: TIOTROPIUM BR INH SCH (21:53)
[2017-08-12] MEDS: OLODATEROL HCL INH SCH (21:53)
[2017-08-12] MEDS: FLUTICASONE FUROATE 100 MCG INH SCH (21:57)
[2017-08-12] MEDS: FLUTICASONE FUROATE 200 MCG INH SCH (21:58)
[2017-08-12] MEDS ORDERED: valACYclovir 1,000 MG TABLET PO SCH (22:00)
[2017-08-12] MEDS: valACYclovir 1,000 MG TABLET PO SCH (22:12)
[2017-08-13] MEDS: IPRATROPIUM/ALBUTEROL 3 ML AMPUL.NEB NEB SCH ×6 (03:15→23:55)
[2017-08-13] MEDS: methylPREDNISolone SOD SUCC 125 MG/2 ML VIAL IV SCH ×3 (06:11→21:29)
[2017-08-13] MEDS: CEFEPIME 2 GM VIAL IV SCH ×3 (06:11→21:29)
[2017-08-13] MEDS: 0.9 % SODIUM CHLORIDE 10 ML SYRINGE IV SCH ×3 (06:11→21:30)
[2017-08-13 06:12] LABS: Basophils # (Auto) 0 K/mcL (0.0-0.3); Basophils % (Auto) 0.1 % (0.0-2.0); Eosinophils # (Auto) 0 K/mcL (0.0-0.7); Eosinophils % (Auto) 0 % (0.0-7.0); Granulocytes % (Auto) 95.2 % (38.0-78.0); Lymphocytes # (Auto) 0.4 K/mcL (1.5-4.8); Lymphocytes % (Auto) 3.3 % (15.5-49.0); Mean Cell Volume 89.1 fL (80.0-100.0); Mean Corpuscular HGB Conc 34.1 g/dL (31.0-36.0); Mean Corpuscular Hemoglobin 30.4 pg (26.0-34.0); Monocytes # (Auto) 0.2 K/mcL (0.1-0.9); Monocytes % (Auto) 1.4 % (1.0-12.0); Platelet Count 194 K/mcL (140-440); RBC 3.49 M/mcL (4.50-5.90); Red Cell Distribution Width 14.4 % (11.5-14.5)
[2017-08-13] MEDS: valACYclovir 1,000 MG TABLET PO SCH (06:12)
[2017-08-13 06:52] LABS: ALT/SGPT 50 U/l (0-40); Albumin/Globulin Ratio 1.3 (1.0-2.3); Alkaline Phosphatase 64 U/L (39-117); Bilirubin,Direct < 0.2 mg/dL (0.0-0.3); Blood Urea Nitrogen 25 mg/dl (8-23); Gamma Glutamyl Transpeptidase 60 U/L (8-61); Uric Acid 5.5 mg/dL (2.5-8.0)
[2017-08-13] MEDS: VANCOMYCIN 1,000 MG in 0.9 % SODIUM CHLORIDE 250 ML IV SCH (10:23)
[2017-08-13] MEDS: ENOXAPARIN 80 MG/0.8 ML SYRINGE SQ SCH ×2 (10:27→21:29)
[2017-08-13] MEDS: FUROSEMIDE 40 MG/4 ML VIAL IV SCH ×2 (10:28→16:36)
[2017-08-13] MEDS ORDERED: WARFARIN 3 MG TABLET PO ONE (14:00)
--- NOTE | 2017-08-13 14:21 | Internal Med Progress Note ---
Medical - PN: Subj Patient information: Note initiated : 08/13/17 at 2:19 pm Service Date, if different from initiated Date: [] Patient: Sukumar Burt 77 y/o M admitted on 08/03/17 for BRONCHOSCOPY/LUNG BIOPSY. Chief Complaint: [] Interval history: Aug 03 Patient is a 76-year-old male with a history of advanced COPD, hypercholesterolemia, BPH, recent tachycardia who presents to the ED with progressive pulmonary symptoms. Approximately 10 days ago, the patient started developing pulmonary symptoms coughing with sputum production, occasionally bloody. He presented to the ED here on her poor A6, was diagnosed with lingular pneumonia, treated with Ceftin and a 5 day course of prednisone. Since that time he slept better and felt good for the first 2 days, then has progressively declined. He continues to have cough. He continues to have significant pleuritic chest pain, worse with inspiration and with cough. It's on the left side of the chest over the lingular region. It's moderate to severe in intensity. It hurts for him to lay on that side. He follows up in Dr. Hayes's office today, where Ceftin was stopped and Levaquin was prescribed as well as another taper prednisone. He was also tachycardic, was recommended he present to the emergency department. He presents to the ED, where initially his pulse is 124 with bigeminy on EKG. He is continuing to cough, producing yellowish sputum which is occasionally bloody , though sometimes it's almost all blood. He's felt chilled, though he feels chilly often. He's had no fever. He's had no night sweats. No history of TB exposure. No recent travel. He's had no weight loss. Sputum is yellowish tinged. Repeat radiograph in the ED shows progressive left lingular infiltrate and consolidation. He is being admitted for further treatment of pneumonia, failed outpatient therapy. Feb 15 Feeling a bit stronger this morning. Has been seen by Dr. Wade. CT yesterday shows left hilar mass with partial bronchial obstruction, likely explaining his progressive pneumonia. 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 Plan is to treat with further antibiotics and strengthening prior to attempting bronchoscopy, likely Tuesday morning. Still with some cough, not much hemoptysis. Chest pain seems to be slowly improving. Feb 16 Stable on heparin infusion. Still occasional mild hemoptysis, but is not worsened on anticoagulation. Overnight last night was having runs of SVT/ atrial tachycardia up to the 140s, with subsequent pauses resumption of sinus rhythm and bigeminy. Seemed to improve later in the night, after his evening dose of metoprolol. Patient was asymptomatic during these. August 06 Remained stable. Occasional streaky hemoptysis. Chest pain is improved significantly. Appetite is pretty good. Still gets quite winded with exertion to the bathroom and back. Remains on a heparin infusion. Decreased amount of atrial arrhythmia. Occasional pauses remain. August 07 Slept very well after trazodone last night, feels rested. He had a bowel movement yesterday. Occasional dark bloody sputum. Otherwise tolerating heparin infusion. Occasional of sided chest pain, though significantly improved from admission. Appetite improved. Still quite winded with exertion. Tele stable, no runs of tachyarrhythmia. Aug 08 patient seen and examined, no acute overnight events, patient heparin drip was stopped last night, patient underwent bronchoscopy today with biopsy. Plan to monitor him post procedure and resume heparin GGT this afternoon. The patient has some shortness of breath and increased oxygen requirement after the bronchoscopy, he is wheezing bilaterally. Patient does have a history of severe COPD and has had recent bouts of steroid treatments. The patient otherwise denies any complaints. There is no nausea, no vomiting, no fever, no chills. Aug 09 patient seen and examined, noted that his respiratory status is slightly worse today compared to yesterday. He was started on IV steroids as well as DuoNeb's yesterday, but his respiratory condition did not improve significantly slightly worse today. He underwent a cht x-ray which showed worsening pneumonia bilaterally, normal prominent in the right upper lobe. The patient also has worsening pleural effusion on the left The patient admits to be having some shortness of breath. Denies any hemoptysis. Denies any fever, no chills, no headache, no nausea, no abdominal pain I reviewed with the patient that his breathing status is worsening now, andf that he consider using BiPAP. ABG was drawn which showed hypoxia on 5 L of oxygen. Patient was started on BiPAP treatment. He seems to be tolerating it well. Lasix 1 given. Patient is on heparin drip and has been tolerating this well I reviewed the patient's condition and changed status with the patient's as well as the daughter. aug 10 patient seen, examined, no acute overnight events. Tolerated BiPAP well. This morning, patient is off BiPAP . Not respiratory distress. Still has some shortness of breath but not as bad as yesterday. Exam shows improved wheezing Chest x-ray shows worsening infiltrates and possible ARDS like picture. Clinically, patient is much improved. 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 This was reviewed with the patient, his and the daughter b Patient seen, examined, no acute overnight events, breathing well, did not need BiPAP since yesterday. The patient still has wheezing which is improved from yesterday. Chest x-ray today shows improved pneumonia, however, still has left basilar consolidation and effusion. The patient is very fatigued and very tired even walking from the bed to the door gets him extremely short of breath. Aug 12 patient seen and examined, no acute overnight events, did not give BiPAP overnight. Patient subjectively feels better after use of Lasix. Chest x-ray shows effusion on the left and some mild effusion on the right but overall clinically patient appears better. Repeat doses of IV Lasix today and see how he does. Okay to transfer to [facility] aug 13 patient seen and examined, no acute overnight events, slept well overnight. Feels a little better. He is making good amounts of urine after IV Lasix. Plan to repeat chest x-ray tomorrow, if no change in pleural effusion consider thoracocentesis. Patient still notes he is very short of breath with minimal ambulation Pertinent ROS: Denies headache, dizziness Denies chest pain, palpitations shortness of breath present on minimal ambulation. Cough intermittent. Denies abdominal pain, nausea or vomiting. - Constitutional Vitals: Vital Signs Temp Pulse Resp BP Pulse Ox 98.4 F 75 18 127/63 95 08/13/17 11:43 08/13/17 11:43 08/13/17 11:43 08/13/17 11:43 08/13/17 11:43 Period Temp Pulse Resp BP Sys/Giang Pulse Ox Last 24 Hr 97.3 F-98.8 F 66-91 16-20 115-143/63-73 94-97 Intake and Output 08/13/17 08/13/17 08/13/17 05:59 13:59 21:59 Intake Total 250 / 250 Output Total 740 / 740 750 / 750 Balance -490 / -490 -750 / -750 Intake & Output: Intake & Output 08/13/17 08/13/17 08/13/17 05:59 13:59 21:59 Intake Total 250 / 250 Output Total 740 / 740 750 / 750 Balance -490 / -490 -750 / -750 Intake: Oral 250 / 250 Output: Void Amount 740 / 740 750 / 750 Other: # Voids 1 2 Exam: Constitutional; Afebrile, cooperative, alert, not in distress. Eyes- No icterus, , No periorbital swelling Neck- Midline trachea, supple Respiratory system: air entry reduced left base, breann exp wheezing improved since yesterday, better air entry. CVS- Rate rhythm regular, S1,S2 heard, no gallop, no rub. Abdomen- Soft nontender abdomen, no organomegaly, no tenderness, no guarding or rigidity, [employer]- AOOx3, moving all extremities, no gross focal deficit noted. Medical - PN: Obj Da - Labs CBC & Chem 7: 08/13/17 04:05 08/13/17 04:05 Labs: Abnormal Lab Results 08/13/17 08/13/17 08/13/17 04:05 04:05 04:05 WBC 11.2 H RBC 3.49 L Hgb 10.6 L Hct 31.1 L Gran % 95.2 H Lymph % (Auto) 3.3 L [place] % (Auto) Baso % (Auto) Gran # 10.6 H Lymph # (Auto) 0.4 L PT 20.9 H INR 1.8 H Carbon Dioxide BUN 25 H Glucose 196 H Calcium 7.9 L Phosphorus 1.9 L GGT ALT 50 H Lactate Dehydrogenase Total Protein 5.4 L Albumin 3.0 L 08/12/17 08/12/17 08/12/17 03:35 03:35 03:35 WBC 13.0 H RBC 3.46 L Hgb 10.3 L Hct 30.5 L Gran % 93.8 H Lymph % (Auto) 3.5 L [place] % (Auto) Baso % (Auto) Gran # 12.1 H Lymph # (Auto) 0.5 L PT 16.1 H INR 1.3 H Carbon Dioxide BUN 27 H Glucose 197 H Calcium 8.1 L Phosphorus 1.9 L GGT 62 H ALT 53 H Lactate Dehydrogenase 273 H Total Protein 5.7 L Albumin 2.9 L 08/11/17 08/11/17 08/11/17 04:05 04:05 04:05 WBC 15.0 H RBC 3.39 L Hgb 10.3 L Hct 29.9 L Gran % 93.4 H Lymph % (Auto) 3.2 L [place] % (Auto) 0.4 L Baso % (Auto) 2.3 H Gran # 14.0 H Lymph # (Auto) 0.5 L PT 15.1 H INR 1.2 H Carbon Dioxide 21 L BUN Glucose 177 H Calcium 8.1 L Phosphorus 2.4 L GGT ALT Lactate Dehydrogenase Total Protein 5.4 L Albumin 2.7 L Meds: Medications Acetaminophen (Tylenol) 650 mg PO Q6HP PRN PRN Reason: PAIN/FEVER > 101 Hydrocodone Bitart/Acetaminophen ([place] 10/325mg) 1 tab PO Q4HP PRN PRN Reason: Pain Albuterol Sulfate (Ventolin) 2.5 mg NEB Q2HP PRN PRN Reason: Shortness Of Breath Albuterol Sulfate (Ventolin) 1 puff INH Q4HP PRN PRN Reason: Shortness Of Breath Albuterol/Ipratropium (Duoneb) 3 ml NEB Q4HRT [facility] Last Admin: 08/13/17 11:32 Dose: 3 ml Cefepime HCl (Maxipime) 2 gm IV Q8H [facility] Last Admin: 08/13/17 06:11 Dose: 2 gm Dutasteride (Avodart) 0.5 mg PO HS [facility] Last Admin: 08/12/17 21:37 Dose: 0.5 mg Enoxaparin Sodium (Lovenox) 80 mg SQ BID [facility] Last Admin: 08/13/17 10:27 Dose: 80 mg Furosemide (Lasix) 40 mg IV BIDD [facility] Last Admin: 08/13/17 10:28 Dose: 40 mg Sodium Chloride (Sodium Chloride 0.9%) 250 mls @ 1 mls/hr INTRATRACH .Q24H PRN PRN Reason: Bleeding Vancomycin HCl 1,000 mg/ (Sodium Chloride) 250 mls @ 250 mls/hr IV Q24H [facility] Lorazepam (Ativan) 0.5 mg PO Q4HP PRN PRN Reason: ANXIETY/SEDATION Magnesium Hydroxide (Milk Of Magnesia) 30 ml PO DAILYP PRN PRN Reason: Constipation Methylprednisolone Sodium Succinate (Solu-Medrol) 62.5 mg IV Q8 [facility] Last Admin: 08/13/17 06:11 Dose: 62.5 mg Metoprolol Succinate (Toprol Xl) 50 mg PO [facility] Last Admin: 08/12/17 21:39 Dose: 50 mg Omeprazole (Prilosec) 20 mg PO [facility] Last Admin: 08/12/17 21:39 Dose: 20 mg Ondansetron HCl (Zofran) 4 mg IV Q4HP PRN PRN Reason: Nausea And Vomiting Fluticasone Furoate (Arnuity Ellipta) 100 Mcg 1 dose INH [facility] Last Admin: 08/12/17 21:57 Dose: 1 dose Fluticasone Furoate (Arnuity Ellipta) 200 Mcg 1 dose INH [facility] Last Admin: 08/12/17 21:58 Dose: 1 dose Tiotropium Br/Olodaterol Hcl ( Stiolto Respimat) Inh 2 dose INH [facility] Last Admin: 08/12/17 21:53 Dose: 2 dose Simvastatin (Zocor) 40 mg PO [facility] Last Admin: 08/12/17 21:39 Dose: 40 mg Sodium Chloride (Saline Flush) 10 ml IV Q8 [facility] Last Admin: 08/13/17 06:11 Dose: 10 ml Terazosin HCl (Hytrin) 5 mg PO [facility] Last Admin: 08/12/17 21:39 Dose: 5 mg Trazodone HCl (Desyrel) 50 mg PO [facility] PRN PRN Reason: Insomnia Last Admin: 08/12/17 21:39 Dose: 50 mg Valacyclovir HCl (Valtrex) 1,000 mg PO Q8 [facility] Stop: 08/19/17 21:59 Vancomycin HCl (Vancomycin Per Pharmacy) 1 order IV [facility] [place] Warfarin Sodium (Coumadin Per Pharmacy) 1 order PO [facility] [place] [facility] Medical - PN: A/P - Time Spent With Patient Total time spent is greater than 50% in coordination of care (as documented) at patient's floor/unit and/or counseling patient: - Narrative A/P Narrative: 76-year-old male with advanced COPD presents with ongoing pulmonary symptoms, cough, occasional hemoptysis, pleuritic chest pain and worsening infiltrate on chest x-ray. Pneumonia, HCAP now, improving . Postobstructive pneumonia, Plan: On vancomycin and cefepime. Continue same. Patient clinically is improving, leucocytosis continues to improve Left lung tumor. squamous cell cancer: follow-up with oncology as an outpatient Left atrial appendage thrombus: problem CT scan, DC heparin drip. Started on Lovenox and warfarin, no e/o bleed , inr still sub therapeutic COPD exacerbation-IV steroids, DuoNeb's antibiotics. Likely exacerbated due to pneumonia and recent bronchoscopy procedure, continue iv steroids x 1 more day. Left pleural effusion: likely due to malignancy, IV lasix now to see if we can reduce this, if patient d oes not respond by tomorrow, will plan thoracocentesis if radiology agrees. Herpes zoster: start on valtrex for 1 week, 1gm TID. Acute hypoxic respiratory failure- on room air. Tachycardia. due to pulmonary process resolved now. Plan: Continue metoprolol, stable. Gastroesophageal reflux disease. Stable. Plan: Continue home meds Urticaria. Patient takes evening antihistamine to prevent hives. Plan: Continue BPH with lower urinary tract symptoms. Stable on current regimen. Plan: Continue home regimen. Medical - PN: Qual - VTE Deep Vein Thrombosis/Pulmonary Embolism Present on Admission: No
[2017-08-13] MEDS: valACYclovir 500 MG TABLET PO SCH ×2 (14:28→21:03)
[2017-08-13] MEDS: OMEPRAZOLE 20 MG CAPSULE PO SCH (21:02)
[2017-08-13] MEDS: SIMVASTATIN 40 MG TABLET PO SCH (21:02)
[2017-08-13] MEDS: METOPROLOL SUCCINATE 25 MG TAB.XL.24H PO SCH (21:03)
[2017-08-13] MEDS: DUTASTERIDE 0.5 MG CAPSULE PO SCH (21:03)
[2017-08-13] MEDS: TERAZOSIN 5 MG CAPSULE PO SCH (21:03)
[2017-08-13] MEDS: FLUTICASONE FUROATE 100 MCG INH SCH (21:03)
[2017-08-13] MEDS: OLODATEROL HCL INH SCH (21:04)
[2017-08-13] MEDS: TIOTROPIUM BR INH SCH (21:04)
[2017-08-13] MEDS: ALBUTEROL SULFATE 1 PUFF INHALER INH PRN (21:05)
[2017-08-13] MEDS: FLUTICASONE FUROATE 200 MCG INH SCH (21:08)
[2017-08-14] MEDS: IPRATROPIUM/ALBUTEROL 3 ML AMPUL.NEB NEB SCH ×6 (04:17→23:00)
[2017-08-14] MEDS: methylPREDNISolone SOD SUCC 125 MG/2 ML VIAL IV SCH (05:48)
[2017-08-14] MEDS: CEFEPIME 2 GM VIAL IV SCH ×3 (05:49→21:00)
[2017-08-14] MEDS: 0.9 % SODIUM CHLORIDE 10 ML SYRINGE IV SCH ×3 (05:49→21:00)
[2017-08-14 05:51] LABS: Basophils # (Auto) 0 K/mcL (0.0-0.3); Basophils % (Auto) 0.2 % (0.0-2.0); Eosinophils # (Auto) 0.3 K/mcL (0.0-0.7); Eosinophils % (Auto) 2.8 % (0.0-7.0); Granulocytes % (Auto) 91.3 % (38.0-78.0); Lymphocytes # (Auto) 0.5 K/mcL (1.5-4.8); Lymphocytes % (Auto) 4.2 % (15.5-49.0); Mean Cell Volume 90.6 fL (80.0-100.0); Mean Corpuscular HGB Conc 33.1 g/dL (31.0-36.0); Monocytes # (Auto) 0.2 K/mcL (0.1-0.9); Monocytes % (Auto) 1.5 % (1.0-12.0); Platelet Count 193 K/mcL (140-440); RBC 3.57 M/mcL (4.50-5.90); Red Cell Distribution Width 14.3 % (11.5-14.5)
[2017-08-14] MEDS: valACYclovir 500 MG TABLET PO SCH ×3 (06:04→20:59)
[2017-08-14 06:29] LABS: ALT/SGPT 55 U/l (0-40); Albumin/Globulin Ratio 1.3 (1.0-2.3); Alkaline Phosphatase 53 U/L (39-117); Bilirubin,Direct < 0.2 mg/dL (0.0-0.3); Blood Urea Nitrogen 28 mg/dl (8-23); Gamma Glutamyl Transpeptidase 62 U/L (8-61); Uric Acid 5.9 mg/dL (2.5-8.0)
[2017-08-14] MEDS ORDERED: POTASSIUM CHLORIDE 20 MEQ PACKET PO ONE (07:39)
--- NOTE | 2017-08-14 09:50 | XRay Report ---
HISTORY: Reason for Exam:pleural effusion/ pneumonia FINDINGS: There is a moderate size left pleural effusion with a very small right-sided effusion. There has been significant improvement on the left. The atelectasis in the left lower lobe has also improved, especially in the superior segment. There are mild generalized infiltrates in both lungs, superimposed upon underlying pulmonary fibrosis. The pneumonia is also improving. IMPRESSION: Improving bilateral pneumonia and improving left side pleural effusion Interpreted and Authenticated by: Alen Fields 08/14/17
[2017-08-14] MEDS: FUROSEMIDE 40 MG/4 ML VIAL IV SCH ×2 (10:21→16:27)
[2017-08-14] MEDS: VANCOMYCIN 1,000 MG in 0.9 % SODIUM CHLORIDE 250 ML IV SCH (10:23)
--- NOTE | 2017-08-14 13:00 | Internal Med Progress Note ---
Medical - PN: Subj Patient information: Note initiated : 08/14/17 at 12:57 pm Service Date, if different from initiated Date: [] Patient: Sukumar Burt 77 y/o M admitted on 08/03/17 for BRONCHOSCOPY/LUNG BIOPSY. Chief Complaint: [] Interval history: Aug 03 Patient is a 76-year-old male with a history of advanced COPD, hypercholesterolemia, BPH, recent tachycardia who presents to the ED with progressive pulmonary symptoms. Approximately 10 days ago, the patient started developing pulmonary symptoms coughing with sputum production, occasionally bloody. He presented to the ED here on her poor A6, was diagnosed with lingular pneumonia, treated with Ceftin and a 5 day course of prednisone. Since that time he slept better and felt good for the first 2 days, then has progressively declined. He continues to have cough. He continues to have significant pleuritic chest pain, worse with inspiration and with cough. It's on the left side of the chest over the lingular region. It's moderate to severe in intensity. It hurts for him to lay on that side. He follows up in Dr. Hayes's office today, where Ceftin was stopped and Levaquin was prescribed as well as another taper prednisone. He was also tachycardic, was recommended he present to the emergency department. He presents to the ED, where initially his pulse is 124 with bigeminy on EKG. He is continuing to cough, producing yellowish sputum which is occasionally bloody , though sometimes it's almost all blood. He's felt chilled, though he feels chilly often. He's had no fever. He's had no night sweats. No history of TB exposure. No recent travel. He's had no weight loss. Sputum is yellowish tinged. Repeat radiograph in the ED shows progressive left lingular infiltrate and consolidation. He is being admitted for further treatment of pneumonia, failed outpatient therapy. b 15 Feeling a bit stronger this morning. Has been seen by Dr. Wade. CT yesterday shows left hilar mass with partial bronchial obstruction, likely explaining his progressive pneumonia. 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 Plan is to treat with further antibiotics and strengthening prior to attempting bronchoscopy, likely Tuesday morning. Still with some cough, not much hemoptysis. Chest pain seems to be slowly improving. Feb 16 Stable on heparin infusion. Still occasional mild hemoptysis, but is not worsened on anticoagulation. Overnight last night was having runs of SVT/ atrial tachycardia up to the 140s, with subsequent pauses resumption of sinus rhythm and bigeminy. Seemed to improve later in the night, after his evening dose of metoprolol. Patient was asymptomatic during these. August 06 Remained stable. Occasional streaky hemoptysis. Chest pain is improved significantly. Appetite is pretty good. Still gets quite winded with exertion to the bathroom and back. Remains on a heparin infusion. Decreased amount of atrial arrhythmia. Occasional pauses remain. August 07 Slept very well after trazodone last night, feels rested. He had a bowel movement yesterday. Occasional dark bloody sputum. Otherwise tolerating heparin infusion. Occasional of sided chest pain, though significantly improved from admission. Appetite improved. Still quite winded with exertion. Tele stable, no runs of tachyarrhythmia. Aug 08 patient seen and examined, no acute overnight events, patient heparin drip was stopped last night, patient underwent bronchoscopy today with biopsy. Plan to monitor him post procedure and resume heparin GGT this afternoon. The patient has some shortness of breath and increased oxygen requirement after the bronchoscopy, he is wheezing bilaterally. Patient does have a history of severe COPD and has had recent bouts of steroid treatments. The patient otherwise denies any complaints. There is no nausea, no vomiting, no fever, no chills. Aug 09 patient seen and examined, noted that his respiratory status is slightly worse today compared to yesterday. He was started on IV steroids as well as DuoNeb's yesterday, but his respiratory condition did not improve significantly slightly worse today. He underwent a cht x-ray which showed worsening pneumonia bilaterally, normal prominent in the right upper lobe. The patient also has worsening pleural effusion on the left The patient admits to be having some shortness of breath. Denies any hemoptysis. Denies any fever, no chills, no headache, no nausea, no abdominal pain I reviewed with the patient that his breathing status is worsening now, andf that he consider using BiPAP. ABG was drawn which showed hypoxia on 5 L of oxygen. Patient was started on BiPAP treatment. He seems to be tolerating it well. Lasix 1 given. Patient is on heparin drip and has been tolerating this well I reviewed the patient's condition and changed status with the patient's as well as the daughter. feb patient seen, examined, no acute overnight events. Tolerated BiPAP well. This morning, patient is off BiPAP . Not respiratory distress. Still has some shortness of breath but not as bad as yesterday. Exam shows improved wheezing Chest x-ray shows worsening infiltrates and possible ARDS like picture. Clinically, patient is much improved. 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 This was reviewed with the patient, his and the daughter Feb Patient seen, examined, no acute overnight events, breathing well, did not need BiPAP since yesterday. The patient still has wheezing which is improved from yesterday. Chest x-ray today shows improved pneumonia, however, still has left basilar consolidation and effusion. The patient is very fatigued and very tired even walking from the bed to the door gets him extremely short of breath. Feb 23 patient seen and examined, no acute overnight events, did not give BiPAP overnight. Patient subjectively feels better after use of Lasix. Chest x-ray shows effusion on the left and some mild effusion on the right but overall clinically patient appears better. Repeat doses of IV Lasix today and see how he does. Okay to transfer to [facility] feb 24 patient seen and examined, no acute overnight events, slept well overnight. Feels a little better. He is making good amounts of urine after IV Lasix. Plan to repeat chest x-ray tomorrow, if no change in pleural effusion consider thoracocentesis. Patient still notes he is very short of breath with minimal ambulation feb 25 patient seen and examined, no acute overnight events, doing well overall. He was able to work with physical therapy today for 150 feet was tired at the end. Chest x-ray shows improved pleural effusion on the left side improving pneumonia. Labs reviewed stable. Replace potassium. Pertinent ROS: Denies headache, dizziness Denies chest pain, palpitations Denies cough , improving sob. Denies abdominal pain, nausea or vomiting. - Constitutional Vitals: Vital Signs Temp Pulse Resp BP Pulse Ox 98.4 F 89 20 131/68 95 08/14/17 11:22 08/14/17 11:45 08/14/17 11:45 08/14/17 11:22 08/14/17 11:22 Period Temp Pulse Resp BP Sys/Giang Pulse Ox Last 24 Hr 97.2 F-98.8 F 65-91 15-20 115-147/54-71 93-96 Intake and Output 08/13/17 08/14/17 08/14/17 21:59 05:59 13:59 Intake Total 590 / 590 500 / 500 1340 / 1340 Output Total 875 / 875 475 / 475 250 / 250 Balance -285 / -285 1090 / 1090 Weight 160 lb 8 oz Intake & Output: Intake & Output 08/13/17 08/14/17 08/14/17 21:59 05:59 13:59 Intake Total 590 / 590 500 / 500 1340 / 1340 Output Total 875 / 875 475 / 475 250 / 250 Balance -285 / -285 1090 / 1090 Weight 160 lb 8 oz Intake: Oral 590 / 590 500 / 500 1340 / 1340 Output: Void Amount 875 / 875 475 / 475 250 / 250 Other: Meal Dinner Breakfast Percent of Meal Consumed 100% 100% Stool Size Moderate Moderate Stool Color Brown Brown Stool Consistency Formed Soft Formed # Voids 1 # Bowel Movements 1 Exam: Constitutional; Afebrile, cooperative, alert, not in distress. Eyes- No icterus, , No periorbital swelling Ears- Ext ear normal, hearing normal to conversation. Neck- Midline trachea, supple Respiratory system: Air Entry equal reduced on the left side, bilateral expiratory wheezing much improved , air entry much better CVS- Rate rhythm regular, S1,S2 heard, no gallop, no rub. Abdomen- Soft nontender abdomen, no organomegaly, no tenderness, no guarding or rigidity, [employer]- AOOx3, moving all extremities, no gross focal deficit noted. Medical - PN: Obj Da - Labs CBC & Chem 7: 08/14/17 04:20 08/14/17 04:20 Labs: Abnormal Lab Results 08/14/17 08/14/17 08/14/17 04:20 04:20 04:20 WBC RBC 3.57 L Hgb 10.7 L Hct 32.3 L Gran % 91.3 H Lymph % (Auto) 4.2 L Gran # 10.0 H Lymph # (Auto) 0.5 L PT 23.9 H INR 2.1 H Carbon Dioxide 31 H BUN 28 H Glucose 185 H Calcium 8.1 L Phosphorus GGT 62 H ALT 55 H Lactate Dehydrogenase Total Protein 5.4 L Albumin 3.0 L 08/13/17 08/13/17 08/13/17 04:05 04:05 04:05 WBC 11.2 H RBC 3.49 L Hgb 10.6 L Hct 31.1 L Gran % 95.2 H Lymph % (Auto) 3.3 L Gran # 10.6 H Lymph # (Auto) 0.4 L PT 20.9 H INR 1.8 H Carbon Dioxide BUN 25 H Glucose 196 H Calcium 7.9 L Phosphorus 1.9 L GGT ALT 50 H Lactate Dehydrogenase Total Protein 5.4 L Albumin 3.0 L 08/12/17 08/12/17 08/12/17 03:35 03:35 03:35 WBC 13.0 H RBC 3.46 L Hgb 10.3 L Hct 30.5 L Gran % 93.8 H Lymph % (Auto) 3.5 L Gran # 12.1 H Lymph # (Auto) 0.5 L PT 16.1 H INR 1.3 H Carbon Dioxide BUN 27 H Glucose 197 H Calcium 8.1 L Phosphorus 1.9 L GGT 62 H ALT 53 H Lactate Dehydrogenase 273 H Total Protein 5.7 L Albumin 2.9 L Meds: Medications Acetaminophen (Tylenol) 650 mg PO Q6HP PRN PRN Reason: PAIN/FEVER > 101 Hydrocodone Bitart/Acetaminophen ([place] 10/325mg) 1 tab PO Q4HP PRN PRN Reason: Pain Albuterol Sulfate (Ventolin) 2.5 mg NEB Q2HP PRN PRN Reason: Shortness Of Breath Albuterol Sulfate (Ventolin) 1 puff INH Q4HP PRN PRN Reason: Shortness Of Breath Last Admin: 08/13/17 21:05 Dose: 1 puff Albuterol/Ipratropium (Duoneb) 3 ml NEB Q4HRT [facility] Last Admin: 08/14/17 11:45 Dose: 3 ml Cefepime HCl (Maxipime) 2 gm IV Q8H [facility] Last Admin: 08/14/17 05:49 Dose: 2 gm Dutasteride (Avodart) 0.5 mg PO HS [facility] Last Admin: 08/13/17 21:03 Dose: 0.5 mg Furosemide (Lasix) 40 mg IV BIDD [facility] Last Admin: 08/14/17 10:21 Dose: 40 mg Sodium Chloride (Sodium Chloride 0.9%) 250 mls @ 1 mls/hr INTRATRACH .Q24H PRN PRN Reason: Bleeding Vancomycin HCl 1,000 mg/ (Sodium Chloride) 250 mls @ 250 mls/hr IV Q24H [facility] Last Admin: 08/14/17 10:23 Dose: 250 mls/hr Lorazepam (Ativan) 0.5 mg PO Q4HP PRN PRN Reason: ANXIETY/SEDATION Magnesium Hydroxide (Milk Of Magnesia) 30 ml PO DAILYP PRN PRN Reason: Constipation Metoprolol Succinate (Toprol Xl) 50 mg PO [facility] Last Admin: 08/13/17 21:03 Dose: 50 mg Omeprazole (Prilosec) 20 mg PO [facility] Last Admin: 08/13/17 21:02 Dose: 20 mg Ondansetron HCl (Zofran) 4 mg IV Q4HP PRN PRN Reason: Nausea And Vomiting Fluticasone Furoate (Arnuity Ellipta) 100 Mcg 1 dose INH [facility] Last Admin: 08/13/17 21:03 Dose: 1 dose Fluticasone Furoate (Arnuity Ellipta) 200 Mcg 1 dose INH [facility] Last Admin: 08/13/17 21:08 Dose: 1 dose Tiotropium Br/Olodaterol Hcl ( Stiolto Respimat) Inh 2 dose INH [facility] Last Admin: 08/13/17 21:04 Dose: 2 dose Prednisone (Prednisone) 40 mg PO [facility] Simvastatin (Zocor) 40 mg PO [facility] Last Admin: 08/13/17 21:02 Dose: 40 mg Sodium Chloride (Saline Flush) 10 ml IV Q8 [facility] Last Admin: 08/14/17 05:49 Dose: 10 ml Terazosin HCl (Hytrin) 5 mg PO [facility] Last Admin: 08/13/17 21:03 Dose: 5 mg Trazodone HCl (Desyrel) 50 mg PO [facility] PRN PRN Reason: Insomnia Last Admin: 08/12/17 21:39 Dose: 50 mg Valacyclovir HCl (Valtrex) 1,000 mg PO Q8 [facility] Stop: 08/19/17 21:59 Last Admin: 08/14/17 06:04 Dose: 1,000 mg Vancomycin HCl (Vancomycin Per Pharmacy) 1 order IV UD FLAKO Warfarin Sodium (Coumadin Per Pharmacy) 1 order PO UD [facility] Warfarin Sodium (Coumadin) 3 mg PO ONCE@1400 ONE Stop: 08/14/17 14:01 Medical - PN: A/P - Time Spent With Patient Total time spent is greater than 50% in coordination of care (as documented) at patient's floor/unit and/or counseling patient: - Narrative A/P Narrative: 76-year-old male with advanced COPD presents with ongoing pulmonary symptoms, cough, occasional hemoptysis, pleuritic chest pain and worsening infiltrate on chest x-ray. Pneumonia, HCAP now, improving . Postobstructive pneumonia, Plan: On vancomycin and cefepime. Continue same. Patient clinically is improving, leucocytosis continues to improve Left lung tumor. squamous cell cancer: follow-up with oncology as an outpatient Left atrial appendage thrombus: problem CT scan, DC heparin drip. d/c lovenox, INR 2.1, continue coumadin. COPD exacerbation-IV steroids, DuoNeb's antibiotics. Likely exacerbated due to pneumonia and recent bronchoscopy procedure, d/c IV steroids, oral prednisone only Left pleural effusion: likely due to malignancy, pt responding to antibiotics and lasix. Herpes zoster: start on valtrex for 1 week, 1gm TID. Acute hypoxic respiratory failure- on room air. now. Tachycardia. due to pulmonary process resolved now. Plan: Continue metoprolol, stable. Gastroesophageal reflux disease. Stable. Plan: Continue home meds Urticaria. Patient takes evening antihistamine to prevent hives. Plan: Continue BPH with lower urinary tract symptoms. Stable on current regimen. Plan: Continue home regimen. Medical - PN: Qual - VTE Deep Vein Thrombosis/Pulmonary Embolism Present on Admission: No
[2017-08-14] MEDS ORDERED: WARFARIN 3 MG TABLET PO ONE (14:00)
[2017-08-14] MEDS: OMEPRAZOLE 20 MG CAPSULE PO SCH (20:58)
[2017-08-14] MEDS: TERAZOSIN 5 MG CAPSULE PO SCH (20:58)
[2017-08-14] MEDS: METOPROLOL SUCCINATE 25 MG TAB.XL.24H PO SCH (20:58)
[2017-08-14] MEDS: SIMVASTATIN 40 MG TABLET PO SCH (20:58)
[2017-08-14] MEDS: DUTASTERIDE 0.5 MG CAPSULE PO SCH (20:59)
[2017-08-14] MEDS: OLODATEROL HCL INH SCH (20:59)
[2017-08-14] MEDS: TIOTROPIUM BR INH SCH (20:59)
[2017-08-14] MEDS: ALBUTEROL SULFATE 1 PUFF INHALER INH PRN (20:59)
[2017-08-14] MEDS: FLUTICASONE FUROATE 200 MCG INH SCH (20:59)
[2017-08-14] MEDS: FLUTICASONE FUROATE 100 MCG INH SCH (21:00)
[2017-08-15] MEDS: IPRATROPIUM/ALBUTEROL 3 ML AMPUL.NEB NEB SCH ×3 (03:10→11:25)
[2017-08-15] MEDS: CEFEPIME 2 GM VIAL IV SCH ×2 (05:58→14:00)
[2017-08-15] MEDS: valACYclovir 500 MG TABLET PO SCH ×2 (05:58→13:59)
[2017-08-15] MEDS: 0.9 % SODIUM CHLORIDE 10 ML SYRINGE IV SCH ×2 (06:15→14:00)
[2017-08-15] MEDS ORDERED: POTASSIUM CHLORIDE 20 MEQ PACKET PO ONE (07:30)
[2017-08-15] MEDS ORDERED: predniSONE 20 MG TABLET PO SCH (08:00)
[2017-08-15] MEDS: FUROSEMIDE 40 MG/4 ML VIAL IV SCH (08:13)
[2017-08-15] MEDS: VANCOMYCIN 1,000 MG in 0.9 % SODIUM CHLORIDE 250 ML IV SCH (09:59)
--- NOTE | 2017-08-15 13:02 | Discharge Summary ---
Medical - DS: Prov Patient information: Note initiated : 08/15/17 at 12:53 pm Service Date, if different from initiated Date: [] Patient: Sukumar Burt 77 y/o M admitted on 08/03/17 for BRONCHOSCOPY/LUNG BIOPSY. Chief Complaint: [] Date of admission: 08/03/17 16:45 Discharge date: 08/15/17 Primary care physician: Des Waterman Admitting clinician: Maria Guadalupe Whitlock Consults: 08/03/17 14:04 Consult to Physician [CONS] Stat Comment: Consulting Provider: Maria Guadaulpe Whitlock Reason For Exam: Physician to Consult 08/15/17 08:10 Consult to Physician [CONS] Routine Comment: Consulting Provider: [facility] Reason For Exam: Physician to Consult Discharging clinician: Christina Franco Medical - DS: Meds - Discharge Medications Prescriptions: Cefepime [Maxipime] 2 gm IV Q8H #24 vial Furosemide [Lasix] 20 mg PO DAILY #30 tab HYDROcodone/APAP 10/325MG [[place] 10-325Mg] 1 tab PO Q4HP PRN #30 tab PRN Reason: Pain Potassium Chloride [Kdur] 10 meq PO QAMCC #30 tab predniSONE [Prednisone] 10 mg PO DAILY #23 tab valACYclovir [Valtrex] 1,000 mg PO Q8 #15 tab Vancomycin 1,000 mg IV Q24H #8 vial Warfarin [Coumadin] 5 mg PO DAILY #30 tab Active and Home Medications: Home Medications Albuterol Sulfate [Proair Hfa] 8.5 gm IH PRN PRN 07/26/17 [History Confirmed Last Taken Unknown] Cefuroxime [Ceftin] 500 mg PO Q12 #20 tab 07/26/17 [Rx Confirmed 08/03/17 Last Taken Unknown] Dutasteride [Avodart] 0.5 mg PO HS 07/26/17 [History Confirmed 08/03/17 Last Taken Unknown] Fluticasone Furoate [Arnuity Ellipta] 1 puff IH DAILY 07/26/17 [History Confirmed 08/03/17 Last Taken Unknown] Fluticasone Furoate [Arnuity Ellipta] 1 puff IH DAILY 07/26/17 [History Confirmed 08/03/17 Last Taken Unknown] Metoprolol Succinate [Toprol Xl] 50 mg PO DAILY 07/26/17 [History Confirmed Last Taken Unknown] Omeprazole [PriLOSEC] 20 mg PO DAILY 07/26/17 [History Confirmed 08/03/17 Last Taken Unknown] Simvastatin [Zocor] 40 mg PO HS 07/26/17 [History Confirmed 08/03/17 Last Taken Unknown] Terazosin [Hytrin] 5 mg PO DAILY 07/26/17 [History Confirmed 08/03/17 Last Taken Unknown] Tiotropium Br/Olodaterol HCl [Stiolto Respimat Inhal [place]] 2.5 gm IH DAILY 12/05 [History Confirmed 08/03/17 Last Taken Unknown] predniSONE [Deltasone] 20 mg PO DAILY #6 tab 07/26/17 [Rx Confirmed 08/03/17 Last Taken Unknown] Medical - DS: Hosp Hospital course: Patient is a 76-year-old male with a history of advanced COPD, hypercholesterolemia, BPH, presented to the ED with progressive pulmonary symptoms. Approximately 10 days ago before admission, the patient started developing pulmonary symptoms coughing with sputum production, occasionally bloody. He presented to the ED here, was diagnosed with lingular pneumonia, treated with Ceftin and a 5 day course of prednisone. Since that time he slept better and felt good for the first 2 days, then has progressively declined. He continues to have cough. He continues to have significant pleuritic chest pain , worse with inspiration and with cough. It's on the left side of the chest over the lingular region. It's moderate to severe in intensity. It hurts for him to lay on that side. He was admitted therefore to the hospital for Pnuemonia, THe patient underwent a CT chest, which showed bronchial obstruction with post obstructive pneumonia. Bronchial mass: the patient was seen by pulmonary, he underwent a bronchoscopy, biopsy showed squamous cell cancer. The patient will need to be followed up by oncology upon discharge. He will need workup to speech his cancer as well as potential treatment. Pneuomonia: Patient presented with pneumoina, was treated with IV levoflxoacin, however he developed worsening of his pneumonia after he had the bronchoscopy. The antibiotics were changed from levofloxacin to vancomycin and cefepime, the patient responded to this regimen well, he will take a total of 14 days of IV antibiotics. He has completed 6 days of antibiotics in this hospital the remaining 8 days he will complete at the rehabilitation center. A midline has been placed for the patient. Left-sided pleural effusion-the patient was volume resuscitated while he was in the hospital, he hadleft sided effusion on presentation which got worse, he responded to Lasix. The patient likely has pleural effusion related to malignancy. At this point in time. Did not tap the effusion. Patient will continue on oral Lasix 20 mg once a day at the time of discharge. He will follow up with oncology. Left atrial thrombus- the CT scan of the chest revealed a thrombus in the left atrial appendage, echocardiogram was done which did not reveal the thrombus however the echo would not be as sensitive to reveal a left atrial thrombus. Transesophageal echo is not available at this hospital. The patient was placed on IV heparin drip initially and then later on to Lovenox and Coumadin. He is being discharged on Coumadin for chronic anticoagulation. The duration of anticoagulation will be decided by the network operations center engineer as an outpatient. We will make a referral for him to be evaluated by network operations center engineer. COPD-patient has severe COPD, he is on DuoNeb's as well as steroids while in the hospital. On presentation his bleeding was well, however the patient developed COPD exacerbation after he had the bronchoscopy, he will be discharged on a steroid taper The rest of the stay in the hospital was uneventful, the patient was very weak and had decreased endurance after a prolonged hospital stay. He will be discharged to a rehabilitation facility. The patient will need follow-up with oncology, cardiology and primary care provider after discharge. Discharge diagnosis: Squamous Cell lung cancer, COPD exacerbation, Pneumonia. atrial thrombus. - Time Spent with Patient Total time spent providing and/or coordinating discharge services: Greater than 30 minutes Medical - DS: Exam - Constitutional Vitals: Vital Signs Temp Pulse Pulse Resp BP BP Pulse Ox 08/15/17 11:29 76 18 08/15/17 07:43 70 18 93 08/15/17 07:42 70 18 08/15/17 06:16 97.8 F 16 114/59 96 08/15/17 03:20 98.1 F 60 20 128/50 98 08/14/17 23:09 97.7 F 74 20 135/74 94 08/14/17 23:00 70 15 08/14/17 19:51 80 15 08/14/17 19:04 97.8 F 86 20 114/71 95 02/25/18 15:19 80 15 97 08/14/17 14:54 98 F 16 150/66 95 Intake and Output 08/14/17 08/15/17 08/15/17 21:59 05:59 13:59 Intake Total 980 / 980 400 / 400 320 / 320 Output Total 475 / 475 200 / 200 790 / 790 Balance 505 / 505 200 / 200 -470 / -470 Intake: Oral 980 / 980 400 / 400 320 / 320 Output: Void Amount 475 / 475 200 / 200 790 / 790 Other: Meal Breakfast Percent of Meal Consumed 75% Feeding Ability Independent # Voids 1 Weight 160 lb 8 oz Additional comments: Constitutional; Afebrile, cooperative, alert, not in distress. Eyes- No icterus, , No periorbital swelling Ears- Ext ear normal, hearing normal to conversation. Neck- Midline trachea, supple Respiratory system: Air Entry Decreased on left base, very minor wheezing today. CVS- Rate rhythm regular, S1,S2 heard, no gallop, no rub. Abdomen- Soft nontender abdomen, no organomegaly, no tenderness, no guarding or rigidity, FLAT IRONER- AOOx3, moving all extremities, no gross focal deficit noted. Medical - DS: Data Procedures and tests throughout hospitalization: Chest X ray IMPRESSION: Large infiltrate in the anterior segment left upper lobe and lingula - worsening Moderate left pleural effusion also worsening Underlying COPD CT chest IMPRESSION: 1. 5 cm irregular left hilar mass encasing and narrowing the left upper lobe and lingular bronchi and pulmonary arteries. It is suspicious for primary lung carcinoma. No definite evidence of metastatic adenopathy or distant metastases. If tissue diagnosis is desired, suggest bronchoscopy 2. Large alveolar infiltrate in the lingula and anterior segment left upper lobe. Small infiltrate posterior left lower lobe. Moderate left pleural effusion 3. 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 This would be at risk for systemic embolization 4. Moderate centrilobular emphysema changes Cytology MICROSCOPIC DIAGNOSIS BRONCHUS, LEFT UPPER LOBE, WASHING: -- MALIGNANT CELLS PRESENT, DERIVED FROM SQUAMOUS CELL CARCINOMA; SEE COMMENT. (DMT:efraín) MICROSCOPIC DIAGNOSIS BRONCHUS, LEFT UPPER LOBE, BRUSHING: -- MALIGNANT CELLS PRESENT, DERIVED FROM SQUAMOUS CELL CARCINOMA; SEE COMMENT. (DMT:ishmaelf) SPECIMEN A - LUNG, LEFT UPPER LOBE MASS, BIOPSY: -- INVASIVE MODERATELY TO POORLY DIFFERENTIATED SQUAMOUS CELL CARCINOMA. SPECIMEN B - LUNG, LEFT UPPER LOBE MASS, ASPIRATE: -- INVASIVE MODERATELY TO POORLY DIFFERENTIATED SQUAMOUS CELL CARCINOMA. (DMT :efraín) Echo done Normal LVEF Chest X ray IMPRESSION: Improving bilateral pneumonia and improving left side pleural effusion Labs on day of discharge: Labs from last 24 hours 08/15/17 05:10 PT 20.8 H INR 1.8 H Preliminary micro results at discharge 08/08/17 08:43 Fungal Culture - Preliminary Lung - Left Upper Lobe 08/08/17 08:44 Acid Fast Bacilli Culture & Smear - Preliminary Lung - Left Upper Lobe Medical - DS: A/P - Patient/Caregiver Discharge Instructions Activity: as per physical therapy, increase activity as tolerated Diet: Cardiac Additional Instructions: Follow up with Dr Wilcox/ Oncology in 1 week follow up with PCP in 1-2 weeks, Dr Waterman Follow up with Dr Morales in 1 -2 weeks for Left ATrial thrombus, Check INR in 3 days, follow up results with PCP IV vancomycin per pharmacy, IV cefepime 2mgs q8, Total duration of antibiotics is 8 more days, last dose will be 08/22/17 Midline care as per custodial policy D/C midline after last dose of antibiotics Wear oxygen at all times Go to the ER if shortness of breath gets worse, fever, severe hemoptysis, or any other concerning symptom. Follow up with PCP in 1 week, Dr Waterman. Follow up with Cardiology in 1-2 weeks, Dr Morales Follow up with Dr Wilcox/ oncology in 1 week - Follow up Plan Follow up with: Des Waterman DO [Primary Care Provider] - Thomas Morales MD [Physician] - Theo Wilcxo MD [Physician] - Disposition: Xfer SNF Prognosis: Undetermined Rehab Potential: Undetermined I certify that the patient requires SNF services: Yes Overall status at discharge: patient is progressing back to baseline Medical - DS: Qual - VTE Deep Vein Thrombosis/Pulmonary Embolism Present on Admission: No
[2017-08-15] MEDS ORDERED: WARFARIN 5 MG TABLET PO ONE (14:00)
[2017-08-15] MEDS ORDERED: 0.9 % SODIUM CHLORIDE 10 ML SYRINGE IV SCH (21:00)
== END 2017-08-15 14:30 | DRG 166 ==
LOC: ED 11:50 → ICU 16:45 → MEDSUR 08-12 18:30
PROVIDERS: ADMIT Internal Medicine; ATTEND Internal Medicine